=== PATIENT | female | born 1965 | race Caucasian/White ===

== ENCOUNTER 2022-09-13 20:56 | Inpatient (IN) | payer OTHER, SELFPAY ==
[2022-09-13] MEDS ORDERED: Magnesium Sulfate 2gm IVPB 2 G/50 ML BAG IV ONE (20:58)
[2022-09-13] MEDS ORDERED: NA CHLORIDE 0.9% 1,000 ML ONE (20:58)
[2022-09-13] MEDS ORDERED: dexAMETHasone 10 MG/ML VIAL ONE (20:58)
[2022-09-13] MEDS ORDERED: FUROSEMIDE 40 MG/4 ML VIAL ONE (21:05)
[2022-09-13 21:15] LABS: Urine Blood Negative (Negative); Urine Glucose Negative (Negative); Urine Protein Negative (Negative); Urine pH 5.5 (5.0-7.0)
[2022-09-13] MEDS ORDERED: NA CHLORIDE 0.9% 100 ML ONE (21:35)
[2022-09-13] MEDS ORDERED: PIPERACIL/TAZO 3.375 GM VIAL IV ONE (21:36)
[2022-09-13] MEDS ORDERED: IPRATROPIUM BROM 0.5MG/2.5ML ONE (21:37)
[2022-09-13] MEDS ORDERED: LEVALBUTEROL 1.25 MG/3 ML NEB ONE (21:37)
[2022-09-13] MEDS ORDERED: FAMOTIDINE 20 MG/2 ML VIAL IV ONE (21:40)
[2022-09-13 21:42] LABS: Arterial Blood Carboxyhemoglob 2.3 % (0-1.5); Blood Gas Oxyhemoglobin 81.6 % (94-97); Blood O2 Saturation 84.5 % (92-98.5)
[2022-09-13 22:02] LABS: Absolute Lymphocytes (CBC) 1.4 K/uL (0.7-4.9); Hematocrit 26.3 % (39.6-49.0); Lymphocytes % 6.9 % (15.3-44.8); MCV 79.3 fL (80-100); MPV 6.6 fL (7.6-11.3); Protime INR 1.98; RBC Red Blood Cell Count 3.31 M/uL (4.33-5.43)
--- NOTE | 2022-09-13 22:16 | RAD REPORT ---
EXAM DESCRIPTION: RAD - Chest Single View - 09/13/2022 10:06 pm CLINICAL HISTORY: Cough Chest pain. COMPARISON: No comparisons FINDINGS: Portable technique limits examination quality. Extensive bilateral pulmonary opacities are present, greater on the right. This may represent bilater al pneumonia or pulmonary edema. The heart is mildly enlarged in size. No displaced fractures.
[2022-09-13 22:18] LABS: Albumin 3.1 g/dL (3.4-5.0); Bilirubin Direct 1.6 mg/dL (0-0.2); Bilirubin Total 2.9 mg/dL (0.2-1.0); Magnesium 3.2 mg/dL (1.6-2.4); Potassium 4.1 mmol/L (3.5-5.1); Protein, Total 6.4 g/dL (6.4-8.2); Troponin High Sensitivity 48.1 pg/mL (<58.9)
[2022-09-13] MEDS ORDERED: NA CHLORIDE 0.9% 250 ML ONE ×2 (22:27→22:49)
[2022-09-13] MEDS ORDERED: VANCOMYCIN 1 GM/VIAL ONE (22:27)
[2022-09-13] MEDS ORDERED: AZITHROMYCIN 500 MG INJ IVPB ONE (22:49)
[2022-09-13 22:55] LABS: SARS-COV-2 RT PCR NEGATIVE (NEGATIVE)
--- NOTE | 2022-09-14 00:02 | ER ---
Nurse's Notes [facility] Name: Crystal Potter Age: 57 yrs Sex: Male : 1965 Arrival Date: 09/13/2022 Time: 21:00 Bed 4 Private MD: Diagnosis: Abnormal coagulation profile;Hypoxemia;Pneumonia due to other specified bacteria-BILATERAL;Anemia, unspecified;Elevated white blood cell count;Unspecified cirrhosis of liver Presentation: 09/13 21:13 Chief complaint: EMS states: She states that she hasnt taken her asthma medications tw5 since yesterday. 20 years ago she was intubated for something similar happening.. Coronavirus screen: Vaccine status: Patient reports receiving the 2nd dose of the covid vaccine. [employer]. Ebola Screen: Patient negative for fever greater than or equal to 101.5 degrees Fahrenheit, and additional compatible Ebola Virus Disease symptoms Patient denies exposure to infectious person. Patient denies travel to an Ebola-affected area in the 21 days before illness onset. Initial Sepsis Screen: Does the patient meet any 2 criteria? RR > 20 per min. Altered Mental Status. Does the patient have a suspected source of infection? Yes: Productive cough/pneumonia If YES to both, name of provider notified: Arnel Christine MD Risk Assessment: Do you want to hurt yourself or someone else? Patient reports no desire to harm self or others. Onset of symptoms was September 12, 2022 at 08:28. 21:13 Method Of Arrival: EMS: [facility] tw5 21:13 Acuity: SHAHRAM 2 tw5 Triage Assessment: 21:17 General: Appears uncomfortable, Behavior is cooperative. Pain: Denies pain. Neuro: tw5 Level of Consciousness is lethargic, Oriented to person, place, time, situation. Respiratory: Airway is patent Trachea midline Respiratory effort is labored, Respiratory pattern is tachypnea Breath sounds with crackles bilaterally. Historical: - Allergies: 21:17 No Known Allergies; tw5 - Home Meds: 21:17 Unable to obtain [Active]; tw5 - PMHx: 21:17 Asthma; tw5 - PSHx: 21:17 Unable to Obtain; tw5 - Immunization history:: Flu vaccine is not up to date. - Social history:: Smoking status: Patient denies any tobacco usage or history of. - Family history:: not pertinent. Screenin:22 [facility] ED Fall Risk Assessment (Adult) Impaired Gait Yes (1 pt) Altered Elimination tw5 Yes (1 pt). Abuse screen: Denies threats or abuse. Denies injuries from another. Nutritional screening: No deficits noted. Tuberculosis screening: No symptoms or risk factors identified. Assessment: 21:19 General: Appears uncomfortable, Behavior is cooperative, drowsy. Pain: Denies pain. tw5 Respiratory: Airway is patent. 21:22 Cardiovascular: Heart tones S1 S2 Capillary refill < 3 seconds is brisk in left in tw5 bilateral. Derm: Skin is dusky. 02 00:12 General: Appears in no apparent distress. Behavior is drowsy. Respiratory: Airway is tw5 patent Trachea midline Patient placed on BiPAP: FiO2%: 100. Vital Signs: 09/13 21:13 BP 102 / 56; Pulse 87; Resp 26; Pulse Ox 76% on NC; Weight 61.23 kg; Height 5 ft. 5 in. tw5 (165.10 cm); Pain 0/10; 21:13 Temp 97.6(A); tw5 21:22 BP 102 / 56; Pulse 85; Resp 27; Pulse Ox 88% on 50% BiPAP; tw5 23:24 BP 106 / 59; Pulse 85; Resp 20; Pulse Ox 98% on 100% BiPAP; mb9 0208 00:12 BP 95 / 70; Pulse 86; Resp 26; Pulse Ox 100% on 100% BiPAP; tw5 00:43 BP 106 / 66; Pulse 68; Resp 28 S; Pulse Ox 96% on R/A; as6 09/13 21:13 Body Mass Index 22.46 (61.23 kg, 165.10 cm) tw5 02 21:13 Upon transferring her to the bed on EMS Cpap, increased to 97 on our BIPAP at 100% tw5 ED Course: 21:00 Patient arrived in ED. mw2 21:00 Arnel Christine MD is Attending Physician. huy 21:13 Corinne Perez is Primary Nurse. tw5 21:17 Triage completed. tw5 21:17 Arm band placed on Patient placed in an exam room. tw5 21:22 Patient has correct armband on for positive identification. Placed in gown. Bed in low tw5 position. Call light in reach. Side rails up X2. Client placed on continuous cardiac and pulse oximetry monitoring. NIBP monitoring applied. Door closed. Moved to private room. Warm blanket given. Verbal reassurance given. Diet: Patient is NPO. 21:22 Billingsley cath inserted, using sterile technique, 18 Fr., by me, balloon inflated, urine tw5 specimen collected. Maintain EMS IV. Dressing intact. Good blood return noted. Site clean \T\ dry. Gauge \T\ site: 20 G RAC. Inserted saline lock: 20 gauge in left antecubital area, using aseptic technique. Blood collected. Started by [employer]. 21:25 Initial lab(s) drawn, by ED staff, sent to lab. First set of blood cultures drawn by ED tw5 staff. 21:25 No provider procedures requiring assistance completed. tw 21:25 ABG Sent. tw 21:25 BIPAP Sent. tw 21:25 Basic Metabolic Panel Sent. tw 21:25 CBC with Diff Sent. tw 21:25 LFT's Sent. tw 21:25 Magnesium Sent. tw 21:25 NT PRO-BNP Sent. tw 21:25 PT-INR Sent. tw 21:25 Troponin HS Sent. tw5 21:29 Blood Culture Adult (2) Sent. tw5 21:29 Lactate w/ 2H reflex if indic. Sent. tw5 21:58 Inserted saline lock: 22 gauge in left hand, using aseptic technique. mb9 22:08 XRAY Chest (1 view) In Process Unspecified. EDMS 22:08 COVID-19/FLU A+B/RSV Sent. tw5 22:27 Notified ED physician of a critical lab result(s). Lac 5.4. tw5 23:09 CT Chest W/ Con In Process Unspecified. EDMS 23:59 Isaac Fowler MD is [facility]izing [facility] 09/14 00:12 Initial lab(s) drawn, by me, sent to lab. tw 00:13 AMMONIA Sent. tw 00:13 Type And Screen Sent. tw5 02:11 Patient admitted, IV remains in place. tw5 Administered Medications: 09/13 21:19 Drug: Decadron - Dexamethasone 10 mg Route: IVP; Site: right antecubital; tw5 09/14 02:12 Follow up: Response: No adverse reaction tw09/13 21:19 Drug: Lasix (furosemide) 40 mg Route: IVP; Site: right antecubital; 09/14 02:12 Follow up: Response: No adverse reaction 09/13 21:21 Drug: Magnesium Sulfate 2 grams Route: IVPB; Infused Over: 20 mins; Site: right tw5 antecubital; 21:22 Follow up: IV Status: Completed infusion; IV Intake: 50ml 21:38 Drug: Pepcid (famotidine) 20 mg Route: IVP; Site: left antecubital; 09/14 02:12 Follow up: Response: No adverse reaction 09/13 22:08 Drug: Xopenex (levalbuterol) 3.75 mg Route: Inhalation; 22:08 Drug: AtroVENT (ipratropium) Aerosol 0.5 mg Route: Inhalation; 22:08 Drug: Zosyn (piperacillin-tazobactam) 3.375 grams Route: IVPB; Infused Over: 60 mins; Site: left wrist; 23:20 Follow up: Response: No adverse reaction; IV Status: Completed infusion 9 22:42 Drug: vancoMYCIN 1 grams Route: IVPB; Infused Over: 2 hrs; Site: left wrist; 09/14 00:29 Follow up: Response: No adverse reaction; IV Status: Completed infusion; IV Intake: as6 250ml 09/13 23:24 Drug: Zithromax (azithromycin) 500 mg Route: IVPB; Infused Over: 1 hrs; Site: left 9 antecubital; 09/14 00:29 Follow up: Response: No adverse reaction; IV Status: Completed infusion; IV Intake: as6 250ml 00:20 Drug: ProTONIX (pantoprazole) 40 mg Route: IVP; Site: right antecubital; 00:28 Follow up: Response: No adverse reaction 00:20 Drug: Thiamine 100 mg Route: IV; Rate: per protocol; Site: right antecubital; 00:29 Follow up: IV Status: Completed infusion 00:43 Drug: Vitamin K1 (phytonadione) 10 mg Route: Sub-Q; Site: left upper arm; 02:12 Follow up: Response: No adverse reaction 00:43 Drug: Banana Bag - (NS 0.9% 1000 ml, foLIC Acid 1 mg, Thiamine 100 mg, Multivitamin 1 as6 amp) Route: IV; Rate: 125 ml/hr; Site: left antecubital; 02:12 Follow up: IV Status: Infusion continued upon admission tw Medication: 09/13 21:22 VIS not applicable for this client. tw5 Intake: 21:22 IV: 50ml; Total: 50ml. tw5 09/14 00:29 IV: 250ml; Total: 300ml. as6 00:29 IV: 250ml; Total: 550ml. as6 Outcome: 00:01 Decision to Hospitalize by Provider. huy 02:11 Admitted to ICU Report called to report called to ernestina tw 02:11 Condition: stable 02:11 Instructed on the need for admit. 02:23 Patient left the ED. as6 02:40 Patient left the ED. as6 Signatures: Dispatcher [employer] EDMS Arnel Christine MD MD cha Gatti, Jade 2 Corinne Perez tw5 Alejo Moncada, BLAYNE RN as6 Yolanda Flores, RN RN mb9 Corrections: (The following items were deleted from the chart) 00:08 02 22:08 COVID-19/FLU A+B+MOL.LAB.BRZ drawn and sent. tw5 SHER
--- NOTE | 2022-09-14 00:03 | EDPHYS ---
Physician Documentation [facility] Name: Crystal Potter Age: 57 yrs Sex: Male : 1965 Arrival Date: 09/13/2022 Time: 21:00 Bed 4 Private MD: ED Physician Arnel Christine HPI: 09/13 22:57 This 57 yrs old Male presents to ER via EMS with complaints of DYSPNEA X 1DAY.huy 22:57 The patient has shortness of breath at rest, with light activity. Onset: The huy symptoms/episode began/occurred 1 day(s) ago. Duration: The symptoms are continuous, and are steadily getting worse. The patient's shortness of breath is aggravated by coughing, exertion, light activity, prone position, supine position, talking, walking, is alleviated by nebulizer treatment, sitting up, application of supplemental oxygen. The patient or guardian reports cough, that is intermittent, difficulty breathing, flu symptoms, arthralgias. Associated signs and symptoms: Pertinent positives: non-productive cough, dizziness. Severity of symptoms: At their worst the symptoms were moderate severe in the emergency department the symptoms are unchanged. Associated signs and symptoms: The patient has no apparent associated signs or symptoms, Pertinent positives: chest pain, rhinorrhea, sore throat. The patient has experienced similar episodes in the past, a few times. Historical: - Allergies: 21:17 No Known Allergies; tw5 - Home Meds: 21:17 Unable to obtain [Active]; tw5 - PMHx: 21:17 Asthma; tw5 - PSHx: 21:17 Unable to Obtain; tw5 - Immunization history:: Flu vaccine is not up to date. - Social history:: Smoking status: Patient denies any tobacco usage or history of. - Family history:: not pertinent. ROS: 22:57 Constitutional: Negative for fever, chills, and weight loss, Eyes: Negative for injury, huy pain, redness, and discharge, ENT: Negative for injury, pain, and discharge, Neck: Negative for injury, pain, and swelling, Cardiovascular: Negative for chest pain, palpitations, and edema, Abdomen/GI: Negative for abdominal pain, nausea, vomiting, diarrhea, and constipation, Back: Negative for injury and pain, : Negative for injury, bleeding, discharge, and swelling, MS/Extremity: Negative for injury and deformity, Skin: Negative for injury, rash, and discoloration, Neuro: Negative for headache, weakness, numbness, tingling, and seizure, Psych: Negative for depression, anxiety, suicide ideation, homicidal ideation, and hallucinations, Allergy/Immunology: Negative for hives, rash, and allergies, Endocrine: Negative for neck swelling, polydipsia, polyuria, polyphagia, and marked weight changes, Hematologic/Lymphatic: Negative for swollen nodes, abnormal bleeding, and unusual bruising. 22:57 Respiratory: Positive for cough, shortness of breath, at rest. Exam: 22:57 Constitutional: This is a well developed, well nourished patient who is awake, alert, huy and in no acute distress. Head/Face: Normocephalic, atraumatic. Eyes: Pupils equal round and reactive to light, extra-ocular motions intact. Lids and lashes normal. Conjunctiva and sclera are non-icteric and not injected. Cornea within normal limits. Periorbital areas with no swelling, redness, or edema. ENT: Nares patent. No nasal discharge, no septal abnormalities noted. Tympanic membranes are normal and external auditory canals are clear. Oropharynx with no redness, swelling, or masses, exudates, or evidence of obstruction, uvula midline. Mucous membranes moist. Neck: Trachea midline, no thyromegaly or masses palpated, and no cervical lymphadenopathy. Supple, full range of motion without nuchal rigidity, or vertebral point tenderness. No Meningismus. Chest/axilla: Normal chest wall appearance and motion. Nontender with no deformity. No lesions are appreciated. Cardiovascular: Regular rate and rhythm with a normal S1 and S2. No gallops, murmurs, or rubs. Normal PMI, no JVD. No pulse deficits. Abdomen/GI: Soft, non-tender, with normal bowel sounds. No distension or tympany. No guarding or rebound. No evidence of tenderness throughout. Back: No spinal tenderness. No costovertebral tenderness. Full range of motion. Male : Normal genitalia with no discharge or lesions. Skin: Warm, dry with normal turgor. Normal color with no rashes, no lesions, and no evidence of cellulitis. MS/ Extremity: Pulses equal, no cyanosis. Neurovascular intact. Full, normal range of motion. Neuro: Awake and alert, GCS 15, oriented to person, place, time, and situation. Cranial nerves II-XII grossly intact. Motor strength 5/5 in all extremities. Sensory grossly intact. Cerebellar exam normal. Normal gait. Psych: Awake, alert, with orientation to person, place and time. Behavior, mood, and affect are within normal limits. 22:57 ECG was reviewed by the Attending Physician. 22:57 Respiratory: mild respiratory distress is noted, Respirations: normal, Breath sounds: decreased breath sounds, that are moderate, that are severe, are heard in the right posterior upper lobe, right posterior middle lobe and right posterior lower lobe, rhonchi, that are mild, are scattered. Vital Signs: 21:13 BP 102 / 56; Pulse 87; Resp 26; Pulse Ox 76% on NC; Weight 61.23 kg; Height 5 ft. 5 in. tw5 (165.10 cm); Pain 0/10; 21:13 Temp 97.6(A); tw5 21:22 BP 102 / 56; Pulse 85; Resp 27; Pulse Ox 88% on 50% BiPAP; tw5 23:24 BP 106 / 59; Pulse 85; Resp 20; Pulse Ox 98% on 100% BiPAP; mb9 09/14 00:12 BP 95 / 70; Pulse 86; Resp 26; Pulse Ox 100% on 100% BiPAP; tw5 00:43 BP 106 / 66; Pulse 68; Resp 28 S; Pulse Ox 96% on R/A; as6 09/13 21:13 Body Mass Index 22.46 (61.23 kg, 165.10 cm) tw5 09/13 21:13 Upon transferring her to the bed on EMS Cpap, increased to 97 on our BIPAP at 100% tw5 MDM: 21:00 Patient medically screened. huy 23:31 Differential diagnosis: Anemia obstructed airway, bronchitis, URI. Antibiotic huy administration: VANCO, ZOSYN, ZITHROMYCIN. Immunization status: Influenza vaccine: Data reviewed: vital signs, nurses notes, EMS record, lab test result(s), EKG, radiologic studies, plain films. Consideration of Admission/Observation Patient was admitted/placed on observation. Escalation of care including admission/observation considered. Independent interpretation of the following test(s) in the Emergency Department X-Ray: My interpretation is PNA/ FLUID. 09/13 21:08 Order name: Basic Metabolic Panel; Complete Time: 22:32 [facility] 09/13 21:08 Order name: CBC with Diff; Complete Time: 22:16 [facility] 09/13 21:08 Order name: LFT's; Complete Time: 22:32 [facility] 09/13 21:08 Order name: Magnesium; Complete Time: 22:32 [facility] 09/13 21:08 Order name: NT PRO-BNP; Complete Time: 22:32 [facility] 09/13 21:08 Order name: PT-INR; Complete Time: 22:16 [facility] 09/13 21:08 Order name: Troponin HS; Complete Time: 22:32 [facility] 09/13 21:08 Order name: Blood Culture Adult (2) [facility] 09/13 21:08 Order name: Lactate w/ 2H reflex if indic.; Complete Time: 22:32 [facility] 09/13 21:12 Order name: ABG; Complete Time: 22:16 [facility] 09/13 21:15 Order name: Urine Dipstick-Ancillary; Complete Time: 22:16 EDMS 09/13 21:28 Order name: COVID-19/FLU A+B/RSV; Complete Time: 23:27 tw5 09/13 21:08 Order name: XRAY Chest (1 view); Complete Time: 22:32 [facility] 09/13 21:08 Order name: BIPAP [facility] 09/13 22:12 Order name: CT Chest W/ Con bb 09/13 23:58 Order name: Type And Screen; Complete Time: 01:27 [facility] 09/13 23:58 Order name: AMMONIA; Complete Time: 00:38 huy 09/14 01:29 Order name: ABO/RH no charge; Complete Time: 01:34 EDMS 09/14 01:37 Order name: Lactate Sepsis 2 HR Follow-up; Complete Time: 01:38 EDMS 09/13 21:08 Order name: EKG; Complete Time: 21:09 [facility] 09/13 21:08 Order name: Cardiac monitoring; Complete Time: 21:25 [facility] 09/13 21:08 Order name: EKG - Nurse/Tech; Complete Time: 21:22 [facility] 09/13 21:08 Order name: IV Saline Lock; Complete Time: 21:22 [facility] 09/13 21:08 Order name: Labs collected and sent; Complete Time: 21:22 [facility] 09/13 21:08 Order name: O2 Per Protocol; Complete Time: 21:22 [facility] 09/13 21:08 Order name: O2 Sat Monitoring; Complete Time: [facility] 09/13 21:08 Order name: Billingsley; Complete Time: : [facility] EC:57 Rate is 87 beats/min. Rhythm is regular. QRS [place] is Normal. [place] interval is normal. QRS huy interval is normal. QT interval is normal. No Q waves. T waves are Normal. No ST changes noted. Clinical impression: NSR w/ Non-specific ST/T Changes. Interpreted by me. Reviewed by me. Administered Medications: 21:19 Drug: Decadron - Dexamethasone 10 mg Route: IVP; Site: right antecubital; 09/14 02:12 Follow up: Response: No adverse reaction 09/13 21:19 Drug: Lasix (furosemide) 40 mg Route: IVP; Site: right antecubital; tw09/14 02:12 Follow up: Response: No adverse reaction 09/13 21:21 Drug: Magnesium Sulfate 2 grams Route: IVPB; Infused Over: 20 mins; Site: right tw5 antecubital; 21:22 Follow up: IV Status: Completed infusion; IV Intake: 50ml 21:38 Drug: Pepcid (famotidine) 20 mg Route: IVP; Site: left antecubital; 09/14 02:12 Follow up: Response: No adverse reaction 09/13 22:08 Drug: Xopenex (levalbuterol) 3.75 mg Route: Inhalation; 22:08 Drug: AtroVENT (ipratropium) Aerosol 0.5 mg Route: Inhalation; 22:08 Drug: Zosyn (piperacillin-tazobactam) 3.375 grams Route: IVPB; Infused Over: 60 mins; tw Site: left wrist; 23:20 Follow up: Response: No adverse reaction; IV Status: Completed infusion 9 22:42 Drug: vancoMYCIN 1 grams Route: IVPB; Infused Over: 2 hrs; Site: left wrist; tw5 09/14 00:29 Follow up: Response: No adverse reaction; IV Status: Completed infusion; IV Intake: as6 250ml 09/13 23:24 Drug: Zithromax (azithromycin) 500 mg Route: IVPB; Infused Over: 1 hrs; Site: left mb9 antecubital; 09/14 00:29 Follow up: Response: No adverse reaction; IV Status: Completed infusion; IV Intake: as6 250ml 00:20 Drug: ProTONIX (pantoprazole) 40 mg Route: IVP; Site: right antecubital; tw 00:28 Follow up: Response: No adverse reaction 00:20 Drug: Thiamine 100 mg Route: IV; Rate: per protocol; Site: right antecubital; 00:29 Follow up: IV Status: Completed infusion 00:43 Drug: Vitamin K1 (phytonadione) 10 mg Route: Sub-Q; Site: left upper arm; as6 02:12 Follow up: Response: No adverse reaction 00:43 Drug: Banana Bag - (NS 0.9% 1000 ml, foLIC Acid 1 mg, Thiamine 100 mg, Multivitamin 1 as6 amp) Route: IV; Rate: 125 ml/hr; Site: left antecubital; 02:12 Follow up: IV Status: Infusion continued upon admission Disposition Summary: 09/14/22 00:01 Hospitalization Ordered Hospitalization Status: Inpatient Admission huy Provider: Isaac Fowler cha Location: Intensive Care Unit huy Condition: Serious huy Problem: new huy Symptoms: have improved huy Bed/Room Type: Standard huy Room Assignment: 3-(09/14/22 01:44) cg Diagnosis - Abnormal coagulation profile huy - Hypoxemia huy - Pneumonia due to other specified bacteria - BILATERAL huy - Anemia, unspecified huy - Elevated white blood cell count huy - Unspecified cirrhosis of liver huy Forms: - Medication Reconciliation Form huy - SBAR form huy Signatures: Dispatcher [employer] EDArnel Slater MD MD cha Garcia, Cindy, RN Corinne Galvez tw5 Alejo Moncada RN RN as6 Cristin Dallas PA-C PA-C sb4 Yolanda Flores RN RN mb9 Corrections: (The following items were deleted from the chart) 00:08 02 21:09 COVID-19/FLU A+B+MOL.LAB.BRZ ordered. EDMS EDMS 09/14 00:08 0207 21:55 COVID-19/FLU A+B+MOL.LAB.BRZ ordered. EDMS EDMS 09/14 01:44 00:01 huy cg
[2022-09-14] MEDS ORDERED: THIAMINE 200 MG/2 ML INJ ONE ×2 (00:18→00:38)
[2022-09-14] MEDS ORDERED: PANTOPRAZOLE 40 MG INJ ONE (00:18)
[2022-09-14] MEDS ORDERED: NA CHLORIDE 0.9% 1,000 ML ONE (00:38)
[2022-09-14] MEDS ORDERED: VITAMIN K (ADULT) 10 MG/ML ONE (00:38)
[2022-09-14] MEDS ORDERED: FOLIC ACID 5 MG/ML VIAL ONE (00:39)
[2022-09-14] MEDS ORDERED: MULTIVITAMINS 10 ML VIAL (INJ) IV ONE (00:39)
--- NOTE | 2022-09-14 01:16 | P.HP ---
Certification for Inpatient Patient admitted to: Inpatient With expected LOS: >2 Midnights Patient will require the following post-hospital care: None Practitioner: I am a practitioner with admitting privileges, knowledge of patient current condition, hospital course, and medical plan of care. Services: Services provided to patient in accordance with Admission requirements found in Title 42 Section 412.3 of the Code of Federal Regulations Patient History Date of Service: 09/14/22 Reason for admission: Pneumonia, Septic Shock History of Present Illness: Patient is a 57 year old female with past medical history of hypertension, hyperlipidemia, and asthma who presented to the emergency department via EMS in respiratory distress. She was noted to be saturating 76% on cpap and subsequently placed on bipap. ABG with pH 7.37, pCO2 38.4, pO2 56, bicarb 21.4. Labs are significant for WBC 19.5, hemoglobin 8.3, hematocrit 26.3, PT 21.8, INR 1.98, lactate 5.4, magnesium 3.2, T. bili 2.6, direct bili 1.6, AST 62, ammonia 58, BNP 526. Covid/flu/RSV negative. CT showed "Extensive bilateral pulmonary infiltrates, hepatic cirrhosis, sequela of portal hypertension." Patient reports that she used to be a heavy alcohol drinker, but quit about 1 year ago. She was given breathing treatment and solumedrol by EMS. In the emergency department, she received Decadron, Lasix, magnesium, Pepcid, Zosyn, Xopenex, Atrovent, vancomycin, Zithromax, Protonix, thiamine, banana bag, and vitamin K. Patient is admitted for further management. Home medications list reviewed: Yes - Past Medical/Surgical History Diabetic: No -: Hypertension -: Hyperlipidemia -: Asthma -: Alcoholic Cirrhosis -: Portal Hypertension -: Breast Reduction Psychosocial/ Personal History: Patient lives in [place]. - Family History Father -: Heart disease, Diabetes - Social History Smoking Status: Never smoker Alcohol use: No CD- Drugs: No Caffeine use: Yes Place of Residence: Home Review of Systems General: Weakness Respiratory: Cough, Shortness of Breath Physical Examination - Vital Signs Temperature: 97.6 F Blood Pressure: 106/66 Pulse: 68 Respirations: 28 Pulse Ox (%): 96 (100% bipap) - Physical Exam General: Alert, In no apparent distress HEENT: Atraumatic, EOMI, Sclerae nonicteric Neck: Supple, 2+ carotid pulse no bruit Respiratory: Crackles/rales Cardiovascular: No edema, Regular rate/rhythm, Normal S1 S2 Gastrointestinal: Normal bowel sounds, No tenderness Musculoskeletal: No tenderness Integumentary: No rashes Neurological: Normal speech, Normal affect - Studies Laboratory Data (last 24 hrs) 09/13/22 21:21: PT 21.8 H, INR 1.98 09/13/22 21:21: WBC 19.50 H, Hgb 8.3 L, Hct 26.3 L, Plt Count 197 09/13/22 21:21: Sodium 139, Potassium 4.1, BUN 20 H, Creatinine 0.99, Glucose 134 H, Magnesium 3.2 H, Total Bilirubin 2.9 H, AST 62 H, ALT 33, Alkaline Phosphatase 92 Assessment and Plan - Problems (Diagnosis) (1) Pneumonia Current Visit: Yes Status: Acute Qualifiers: Pneumonia type: due to unspecified organism Laterality: bilateral Lung location: lower lobe of lung Qualified Code(s): J18.9 - Pneumonia, unspecified organism (2) Sepsis Current Visit: Yes Status: Acute Qualifiers: Sepsis type: sepsis due to unspecified organism Sepsis acute organ dysfunction status: with acute organ dysfunction Severe sepsis acute organ dysfunction type: acute respiratory failure Acute respiratory failure type: with hypoxia Severe sepsis shock status: with septic shock Qualified Code(s): A41.9 - Sepsis, unspecified organism; R65.21 - Severe sepsis with septic shock; J96.01 - Acute respiratory failure with hypoxia (3) Hypertension Current Visit: Yes Status: Chronic (4) Hyperlipidemia Current Visit: Yes Status: Chronic Qualifiers: Hyperlipidemia type: unspecified Qualified Code(s): E78.5 - Hyperlipidemia, unspecified (5) Asthma Current Visit: Yes Status: Chronic Qualifiers: Asthma severity: unspecified severity Asthma persistence: unspecified Asthma complication type: with acute exacerbation Qualified Code(s): J45.901 - Unspecified asthma with (acute) exacerbation (6) Cirrhosis Current Visit: Yes Status: Chronic Qualifiers: Hepatic cirrhosis type: alcoholic cirrhosis Ascites presence: without ascites Qualified Code(s): K70.30 - Alcoholic cirrhosis of liver without ascites (7) Portal hypertension Current Visit: Yes Status: Chronic (8) Anemia Current Visit: Yes Status: Acute Qualifiers: Anemia type: unspecified type Qualified Code(s): D64.9 - Anemia, unspecified - Plan Patient is admitted for septic shock secondary to bilateral pneumonia. Tachypnea, leukocytosis, need for bipap, and lactate > 4. 2 hour repeat lactate 2.9. Blood cultures obtained. Continue IV antibiotics, steroids, scheduled nebs, incentive spirometry, and antitussives as needed. Pulmonology consult. Continue bipap and wean as tolerated. Labs suggestive of acute hepatic failure. Patient reports history of alcohol abuse with 1 year sobriety. Check hepatitis panel. Trend LFTs. Patient is anemic at 8.3. No active bleeding, no melanotic stools. Type and screen completed. Monitor CBC and transfuse if < 7. Will also check iron panel, B12, folic acid, fibrinogen, phosphorous, ammonia. Monitor and replete electrolytes per protocol. Reconcile and continue home mediations. Lovenox for VTE prophylaxis. Full code. Discharge Plan: Home Plan to discharge in: Greater than 2 days - Advance Directives Does patient have a Living Will: No Does patient have a Durable POA for Healthcare: No - Code Status/Comfort Care Code Status Assessed: Yes Code Status: Full Code Physician Review: Patient Assessed, Agree with Above Assessment and Plan Critical Care: No Time Spent Managing Pts Care (In Minutes): 50
[2022-09-14] MEDS ORDERED: BENZONATATE 100 MG CAP PO PRN (03:13)
[2022-09-14] MEDS ORDERED: LACTULOSE 20 GM/30 ML UCUP PO ONE (03:13)
[2022-09-14] MEDS ORDERED: SODIUM CHLORIDE 0.9% 10ML INJ IV PRN (03:13)
[2022-09-14] MEDS: IPRATROPIUM BROM 0.5MG/2.5ML NEB SCH ×4 (04:00→18:30)
[2022-09-14] MEDS: ALBUTEROL 2.5 MG/3 ML NEB SOL NEB SCH ×4 (04:00→18:30)
[2022-09-14 05:06] LABS: Absolute Lymphocytes (CBC) 0.7 K/uL (0.7-4.9); Lymphocytes % 5.1 % (15.3-44.8); MCV 79.2 fL (80-100); MPV 6.6 fL (7.6-11.3); RBC Red Blood Cell Count 3.16 M/uL (3.86-4.86)
[2022-09-14 05:28] LABS: Blood Morphology Comment NOT SEEN (NOT SEEN); Platelet Estimate ADEQ
--- NOTE | 2022-09-14 05:36 | P.INFCA ---
Sepsis Focused Assessment - Focused Assessment Complete? Sepsis Focused Assessment Completed?: Yes - Sepsis Screen Result Severe Sepsis: Positive Septic Shock: Negative - Evaluation Current stage of sepsis: Severe sepsis - Vital Signs Reviewed: Yes Temperature: 97.6 F Heart rate: 68 Blood Pressure: 106/66 Respiratory Rate: 28 O2 Sat by Pulse Oximetry: 96 (100% bipap) - Examination Comments: Sepsis reassesment completed.
--- NOTE | 2022-09-14 05:36 | P.PN ---
Subjective Date of Service: 09/14/22 Patient's hypoxemia improving. Continue with BiPAP support and slowly try to wean off BiPAP at this time. Review of Systems 10-point ROS is otherwise unremarkable Physical Examination - Vital Signs Temperature: 97.6 F Blood Pressure: 106/66 Pulse: 68 Respirations: 28 Pulse Ox (%): 96 (100% bipap) - Physical Exam General: Alert, In no apparent distress Respiratory: Diminished, Crackles/rales, Expiratory wheezes Cardiovascular: Regular rate/rhythm, Normal S1 S2, Systolic murmur Gastrointestinal: Normal bowel sounds, Soft and benign, Non-distended, No tenderness, No rebound, No guarding Musculoskeletal: No clubbing, No swelling, No tenderness Neurological: Sensation intact, Cranial nerves 3-12 intact - Studies Laboratory Data (last 24 hrs) 09/13/22 21:21: PT 21.8 H, INR 1.98 09/13/22 21:21: WBC 19.50 H, Hgb 8.3 L, Hct 26.3 L, Plt Count 197 09/13/22 21:21: Sodium 139, Potassium 4.1, BUN 20 H, Creatinine 0.99, Glucose 134 H, Magnesium 3.2 H, Total Bilirubin 2.9 H, AST 62 H, ALT 33, Alkaline Phosphatase 92 Medications List Reviewed: Yes Assessment & Plan - Problems (Diagnosis) (1) Pneumonia Current Visit: Yes Status: Acute Qualifiers: Pneumonia type: due to unspecified organism Laterality: bilateral Lung location: lower lobe of lung Qualified Code(s): J18.9 - Pneumonia, unspecified organism (2) Thrombocytopenia Current Visit: Yes Status: Acute (3) Anemia associated with acute blood loss Current Visit: Yes Status: Acute (4) Sepsis Current Visit: Yes Status: Acute Qualifiers: Sepsis type: sepsis due to unspecified organism Sepsis acute organ dysfunction status: with acute organ dysfunction Severe sepsis acute organ dysfunction type: acute respiratory failure Acute respiratory failure type: with hypoxia Severe sepsis shock status: with septic shock Qualified Code(s): A41.9 - Sepsis, unspecified organism; R65.21 - Severe sepsis with septic shock; J96.01 - Acute respiratory failure with hypoxia (5) Cirrhosis Current Visit: Yes Status: Chronic Qualifiers: Hepatic cirrhosis type: alcoholic cirrhosis Ascites presence: without ascites Qualified Code(s): K70.30 - Alcoholic cirrhosis of liver without ascites (6) Portal hypertension Current Visit: Yes Status: Chronic - Plan Plan: 1. Continue with IV antibiotics 2. Awaiting sputum and blood culture 3. Repeat chest x-ray 4. CT scan of the chest reviewed; echocardiogram pending 5. Appreciate pulmonary consultation 6. Continue with nebs as needed 7. O2 per protocol 8. PPI 9. Monitor volume status 10. GI and DVT prophylaxis Discharge Plan: Home Plan to discharge in: Greater than 2 days - Advance Directives Does patient have a Living Will: No Does patient have a Durable POA for Healthcare: No - Code Status/Comfort Care Code Status: Full Code Physician Review: Patient Assessed, Agree with Above Assessment and Plan
[2022-09-14 05:41] LABS: Albumin 2.9 g/dL (3.4-5.0); Bilirubin Direct 1.3 mg/dL (0-0.2); Bilirubin Total 2.1 mg/dL (0.2-1.0); Magnesium 2.6 mg/dL (1.6-2.4); Phosphorus 3.6 mg/dL (2.5-4.9); Protein, Total 6.1 g/dL (6.4-8.2); Thyroid Stimulating Hormone 0.386 uIU/mL (0.358-3.740)
[2022-09-14] MEDS ORDERED: PANTOPRAZOLE INJ 80 MG in NA CHLORIDE 0.9% 250 ML IV SCH (06:00)
[2022-09-14 06:09] LABS: Hepatitis B Core IgM Nonreactive (Nonreactive); Hepatitis B surface AG Interp. Nonreactive (Nonreactive); Hepatitis C Virus Ab Nonreactive (Nonreactive)
[2022-09-14 06:26] LABS: RBC Red Blood Cell Count 3.19 M/uL (3.86-4.86)
--- NOTE | 2022-09-14 07:44 | RAD REPORT ---
EXAM DESCRIPTION: US - Abdomen Exam Complete - 09/14/2022 6:10 am CLINICAL HISTORY: Abdominal pain COMPARISON: none FINDINGS: The liver has an increased echotexture. Nodular contour Gallbladder wall not thickened. The biliary tree is normal caliber. Gallstones. 5 millimeter polyp The pancreas is normal in size and echotexture The right kidney measures 10 centimeters with a normal echotexture. The left kidney measures 11 centimeters with a normal echotexture. The spleen measures 12.6 centimeters. Abdominal aorta/IVC do not demonstrate a significant abnormality IMPRESSION: Cholelithiasis without evidence cholecystitis Borderline splenomegaly Mildly increased hepatic echotexture may indicate mild fatty infiltration. Mildly nodular hepatic con tour indicating chronic disease
--- NOTE | 2022-09-14 08:00 | P.CNS ---
Date of Consult: 09/14/22 Reason for Consult: Resp failiure Chief Complaint: Pneumonia, Septic Shock History of Present Illness: Patient is 57 years of age past medical history of metabolic syndrome hypertension hyperlipidemia came in with respiratory failure diffuse bilateral changes on the x-ray patient is alert cooperative responsive apparently been sick for about 2 weeks hemodynamically stable on BiPAP P Allergies No Known Allergies Allergy (Unverified 09/14/22 03:12) - Past Medical/Surgical History Diabetic: No -: Hypertension -: Hyperlipidemia -: Asthma -: Alcoholic Cirrhosis -: Portal Hypertension -: Breast Reduction Psychosocial/ Personal History: Patient lives in [place]. - Family History Father Medical History: Heart disease, Diabetes - Social History Alcohol use: No CD- Drugs: No Caffeine use: Yes Place of Residence: Home Review of Systems 10-point ROS is otherwise unremarkable General: Weakness Respiratory: Cough, Shortness of Breath Physical Examination Temp Pulse Resp BP Pulse Ox 97.6 F 88 21 H 121/66 98 09/14/22 05:36 09/14/22 06:00 09/14/22 06:00 09/14/22 06:00 09/14/22 06:00 General: Alert, Oriented x3, Mild distress Respiratory: Clear to auscultation bilaterally, Diminished Cardiovascular: No edema, Regular rate/rhythm, Normal S1 S2 Gastrointestinal: Normal bowel sounds, Soft and benign Musculoskeletal: No clubbing, No swelling, No contractures Integumentary: No rashes, No breakdown Laboratory Data (last 24 hrs) 09/13/22 21:21: PT 21.8 H, INR 1.98 09/13/22 21:21: WBC 19.50 H, Hgb 8.3 L, Hct 26.3 L, Plt Count 197 09/13/22 21:21: Sodium 139, Potassium 4.1, BUN 20 H, Creatinine 0.99, Glucose 134 H, Magnesium 3.2 H, Total Bilirubin 2.9 H, AST 62 H, ALT 33, Alkaline Phosph atase 92 - Problems (1) Respiratory failure Current Visit: Yes Status: Acute Plan: Patient is 57 years of age admitted with acute respiratory failure bilateral pulmonary infiltrates pneumonia White count is elevated very comfortable on a BiPAP of expanded antibiotic coverage added levofloxacin vancomycin we have the severity of pneumonia DC Zithromax low-dose diuretic steroid blood cultures pending increase PEEP titrate sat to 90-95% patient also has microcytic anemia low transferrin saturation consistent with iron deficiency anemia Qualifiers: Chronicity: acute (2) Pneumonia Current Visit: Yes Status: Acute Qualifiers: Pneumonia type: due to unspecified organism Laterality: bilateral Lung location: lower lobe of lung Qualified Code(s): J18.9 - Pneumonia, unspecified organism
[2022-09-14] MEDS: PANTOPRAZOLE INJ 80 MG in NA CHLORIDE 0.9% 250 ML IV SCH ×2 (08:30→20:01)
[2022-09-14] MEDS: FUROSEMIDE 20 MG/ 2ML VIAL IV SCH (08:30)
[2022-09-14] MEDS: Levofloxacin 750mg IV 750 MG/150 ML BAG IV SCH (08:30)
[2022-09-14] MEDS: ENOXAPARIN 40 MG/0.4 ML SQ SCH ×2 (08:30→09:00)
[2022-09-14] MEDS: METHYLPREDNISOLONE 125 MG INJ IV SCH ×2 (08:31→20:01)
[2022-09-14] MEDS: CEFTRIAXONE 1,000 MG in NA CHLORIDE 0.9% 50 ML IVPB SCH (08:35)
[2022-09-14] MEDS: VANCOMYCIN 1 GM in NA CHLORIDE 0.9% 250 ML IVPB SCH (08:47)
[2022-09-14] MEDS: SOD FERRIC GLUC COMPLX/SUCROSE 250 MG in NA CHLORIDE 0.9% 250 ML IV SCH (08:53)
[2022-09-14] MEDS ORDERED: AZITHROMYCIN IV 500 MG in NA CHLORIDE 0.9% 250 ML IVPB SCH (09:00)
[2022-09-14] MEDS ORDERED: PANTOPRAZOLE 40 MG INJ IVP SCH (09:00)
[2022-09-14] MEDS ORDERED: METHYLPREDNISOLONE 40 MG INJ IV SCH (09:00)
[2022-09-14] MEDS ORDERED: ENOXAPARIN 40 MG/0.4 ML SQ SCH (09:00)
--- NOTE | 2022-09-14 10:46 | RAD REPORT ---
EXAM DESCRIPTION: CT - Thorax W/ Con - 09/14/2022 6:46 am CLINICAL HISTORY: DYSPNEA TECHNIQUE: Axial computed tomography images of the chest with intravenous contrast. Sagittal and c oronal reformatted images were created and reviewed. This CT exam was performed using one or more o f the following dose reduction techniques: automated exposure control, adjustment of the mA and/or kV according to patient size, and/or use of iterative reconstruction technique. COMPARISON: No relevant prior studies available. FINDINGS: Lungs: Extensive multifocal groundglass opacities bilaterally, right greater than left. Right lower lobe calcified granulomata. Pleural space: Unremarkable. No pneumothorax. No significant effusion. Heart: The heart is moderately enlarged. Coronary artery calcification. No significant pericard ial effusion. Bones/joints: Mild multilevel spondylosis. No acute fracture. No dislocation. Soft tissues: Unremarkable. Vasculature: Minimal atherosclerotic disease. Incidental note is made of a 2-vessel aortic arch w ith common origin of the right brachiocephalic and left common carotid arteries. Prominence of the main and central pulmonary arteries which can be seen in the setting of pulmonary arterial hypertensi on. Lymph nodes: Unremarkable. No enlarged lymph nodes. Liver: The liver is enlarged and mildly diffusely low in density compatible with steatosis. Subtl e surface contour nodularity. Gallbladder and bile ducts: Multiple small layering gallstones. No gallbladder wall thickening or pericholecystic fluid. Pancreas: Mild to moderate pancreatic parenchymal atrophy. Spleen: The spleen is enlarged. Splenic parenchymal calcifications compatible with remote granulo matous organism exposure. IMPRESSION: 1. Extensive bilateral pulmonary infiltrates. 2. Findings suggestive of hepatic cirrhosis and sequela of portal hypertension. 3. Other findings as above. Electronically signed by: Campbell Lopez MD 09/13/2022 11:27 PM NUTRITION INTERN Due to temporary technical issues with the PACS/Fluency reporting system, reports are being signed by the in house radiologists without review as a courtesy to insure prompt reporting. The interpreting radiologist is fully responsible for the content of the report.
[2022-09-14 14:30] LABS: Hematocrit 27.2 % (36.0-45.0)
[2022-09-14 18:02] LABS: Absolute Lymphocytes (CBC) 0.9 K/uL (0.7-4.9); Hematocrit 24.3 % (36.0-45.0); Lymphocytes % 6.3 % (15.3-44.8); MCV 78.8 fL (80-100); MPV 6.8 fL (7.6-11.3); RBC Red Blood Cell Count 3.08 M/uL (3.86-4.86)
[2022-09-15] MEDS ORDERED: IBUPROFEN 400 MG TAB PO ONE (01:10)
[2022-09-15] MEDS: ZOLPIDEM TARTRATE 10 MG TABLET PO PRN ×2 (01:33→21:06)
[2022-09-15] MEDS: MIRTAZAPINE 15 MG TAB PO PRN ×2 (01:33→21:05)
[2022-09-15] MEDS: VANCOMYCIN 1 GM in NA CHLORIDE 0.9% 250 ML IVPB SCH ×2 (01:35→20:55)
[2022-09-15] MEDS: ALBUTEROL 2.5 MG/3 ML NEB SOL NEB SCH ×4 (02:00→19:40)
[2022-09-15] MEDS: IPRATROPIUM BROM 0.5MG/2.5ML NEB SCH ×4 (02:00→19:40)
[2022-09-15 04:53] LABS: Absolute Lymphocytes (CBC) 1.2 K/uL (0.7-4.9); Hematocrit 23.5 % (36.0-45.0); Lymphocytes % 9.1 % (15.3-44.8); MCV 78.8 fL (80-100); MPV 6.8 fL (7.6-11.3); RBC Red Blood Cell Count 2.98 M/uL (3.86-4.86)
[2022-09-15 05:11] LABS: Albumin 2.8 g/dL (3.4-5.0); Bilirubin Total 1.3 mg/dL (0.2-1.0); Magnesium 2.6 mg/dL (1.6-2.4); Phosphorus 3.2 mg/dL (2.5-4.9); Potassium 3.7 mmol/L (3.5-5.1); Protein, Total 5.8 g/dL (6.4-8.2)
[2022-09-15] MEDS: PANTOPRAZOLE INJ 80 MG in NA CHLORIDE 0.9% 250 ML IV SCH ×3 (06:33→17:21)
[2022-09-15] MEDS ORDERED: POTASSIUM 25 MEQ EFFERV TAB PO ONE (07:00)
--- NOTE | 2022-09-15 07:58 | EKG ---
Test Date: 2022-09-13 Test Time: 21:05:08 Civil Design Specialist: RV MEASUREMENT RESULTS: Intervals: Rate: 87 [place]: 120 QRSD: 88 QT: 394 QTc: 474 [place]: P: 50 [place]: 120 QRS: 97 T: 10 INTERPRETIVE STATEMENTS: Normal sinus rhythm Rightward axis ST & T wave abnormality, consider lateral ischemia Prolonged QT Abnormal ECG No previous ECG available for comparison Electronically Signed On 09-15-22 07:55:15 MANAGEMENT ACCOUNTS MANAGER by Lionel Braun
--- NOTE | 2022-09-15 08:36 | ECHO ---
HEIGHT: 5 ft 5 in WEIGHT: 135 lb 0 oz DATE OF STUDY: 09/14/[address]: Isaac Fowler MD 2-DIMENSIONAL: YES M.MODE: YES DOPPLER: YES COLOR FLOW: YES TDS: PORTABLE: YES DEFINITY: BUBBLE STUDY: DIAGNOSIS: CONGESTIVE HEART FAILURE CARDIAC HISTORY: CATHERIZATION: SURGERY: PROSTHETIC VALVE: PACEMAKER: MEASUREMENTS (cm) DIASTOLIC (NORMALS) SYSTOLIC (NORMALS) IVSd 0.9 (0.6-1.2) LA Diam 4.2 (1.9-4.0) LVEF 55-60% LVIDd 4.8 (3.5-5.7) LVIDs 3.6 (2.0-3.5) %FS 26% LVPWd 1.3 (0.6-1.2) Ao Diam 2.6 (2.0-3.7) 2 DIMENSIONAL ASSESSMENT: RIGHT ATRIUM: NORMAL LEFT ATRIUM: ENLARGED RIGHT VENTRICLE: NORMAL LEFT VENTRICLE: NORMAL TRICUSPID VALVE: MILD TRICUSPID REGURGITATION MITRAL VALVE: MILD TO MODERATE MITRAL REGURGITATION PULMONIC VALVE: NORMAL AORTIC VALVE: CALCIFIED, NO AORTIC STENOSIS PERICARDIAL EFFUSION: NONE AORTIC ROOT: NORMAL LEFT VENTRICULAR WALL MOTION: NORMAL DOPPLER/COLOR FLOW: SEE BELOW COMMENTS: 1. NORMAL LEFT VENTRICULAR EJECTION FRACTION 55-60% WITH NORMAL WALL MOTION 2. MODERATE DIASTOLIC DYSFUNCTION 3. LEFT ATRIAL ENLARGEMENT 4. MODERATE MITRAL REGURGITATION 5. MILD TRICUSPID REGURGITATION TECHNOLOGIST: YUVAL WYATT
[2022-09-15] MEDS ORDERED: AMLODIPINE 10 MG TAB PO SCH (09:00)
[2022-09-15] MEDS: SOD FERRIC GLUC COMPLX/SUCROSE 250 MG in NA CHLORIDE 0.9% 250 ML IV SCH (09:14)
[2022-09-15] MEDS: METHYLPREDNISOLONE 125 MG INJ IV SCH (09:18)
[2022-09-15] MEDS: FUROSEMIDE 20 MG/ 2ML VIAL IV SCH (09:18)
[2022-09-15] MEDS: CEFTRIAXONE 1,000 MG in NA CHLORIDE 0.9% 50 ML IVPB SCH (09:20)
[2022-09-15] MEDS: Levofloxacin 750mg IV 750 MG/150 ML BAG IV SCH (09:32)
--- NOTE | 2022-09-15 12:01 | P.PN ---
Subjective Date of Service: 09/15/22 Chief Complaint: Pneumonia, Septic Shock Subjective: Improving (Patient is doing better oxygen requirements declining will drink some Ensure) Review of Systems General: Weakness Respiratory: Shortness of Breath Physical Examination - Vital Signs Temperature: 97.6 F Blood Pressure: 98/58 Pulse: 84 Respirations: 21 Pulse Ox (%): 93 - Physical Exam General: Alert, Cooperative Respiratory: Diminished, Crackles/rales (Crackles bilateral) - Studies Medications List Reviewed: Yes Assessment And Plan - Current Problems (Diagnosis) (1) Respiratory failure Current Visit: Yes Status: Acute Plan: Patient admitted with severe community-acquired pneumonia. With some respiratory failure she seems to be improved blood pressure is slightly low white count is declining blood cultures so far negative on 55% FiO2 PEEP of 12 Qualifiers: Chronicity: acute (2) Pneumonia Current Visit: Yes Status: Acute Plan: Severe community-acquired pneumonia on Rocephin Levaquin and vancomycin chest x- ray seems to be improving Qualifiers: Pneumonia type: due to unspecified organism Laterality: bilateral Lung location: lower lobe of lung Qualified Code(s): J18.9 - Pneumonia, unspecified organism (3) Iron deficiency anemia Current Visit: Yes Status: Acute Plan: Patient is on IV iron Qualifiers: Iron deficiency anemia type: unspecified iron deficiency Qualified Code(s): D50.9 - Iron deficiency anemia, unspecified Physician Review: Patient Assessed, Agree with Above Assessment and Plan
--- NOTE | 2022-09-15 12:14 | RAD REPORT ---
EXAM DESCRIPTION: RAD - Chest Single View - 09/15/2022 12:04 pm CLINICAL HISTORY: penumonia Chest pain. COMPARISON: Chest Single View dated 09/13/2022 FINDINGS: Portable technique limits examination quality. Extensive bilateral pulmonary opacities are again seen. There has been mild improvement in right lung aeration since comparative study. The heart is moderately enlarged in size. No displaced fractures.
[2022-09-15] MEDS ORDERED: hydrOXYzine HCL 25 MG TAB PO PRN (20:00)
[2022-09-15] MEDS: METHYLPREDNISOLONE 40 MG INJ IV SCH (20:56)
[2022-09-16] MEDS: ALBUTEROL 2.5 MG/3 ML NEB SOL NEB SCH ×4 (01:55→19:40)
[2022-09-16] MEDS: IPRATROPIUM BROM 0.5MG/2.5ML NEB SCH ×4 (01:55→19:40)
[2022-09-16] MEDS: PANTOPRAZOLE INJ 80 MG in NA CHLORIDE 0.9% 250 ML IV SCH ×3 (04:01→23:39)
[2022-09-16 04:41] LABS: Absolute Lymphocytes (CBC) 0.7 K/uL (0.7-4.9); Hematocrit 23.7 % (36.0-45.0); Lymphocytes % 6.4 % (15.3-44.8); MCV 79.2 fL (80-100); MPV 6.6 fL (7.6-11.3); RBC Red Blood Cell Count 2.99 M/uL (3.86-4.86)
--- NOTE | 2022-09-16 04:46 | P.PN ---
Date of Service: 09/15/22 Subjective Patient still very hypoxic. Still requiring BiPAP support. ; patient not really that active at this point. May try Airvo awaiting Pulmonary input. Monitor H&H. Patient with severe iron deficiency anemia. If hemoglobin decreases more will give 1 unit packed red blood cells. Patient with portal hypertension. May need further evaluation once her hypoxemia is improved. Continue with antibiotics and awaiting cultures. Patient states she is feeling okay but just really weak. Echocardiogram showed diastolic heart failure. Continue with diuresing. Review of Systems 10-point ROS is otherwise unremarkable Physical Examination - Vital Signs reviewed - Physical Exam General: Alert, In no apparent distress; oriented x 3 Respiratory: Basilar crackles; wheezing Cardiovascular: Regular rate/rhythm, Normal S1 S2 Gastrointestinal: NT/ND Normal bowel sounds Neurological: No focal deficits Extremities: No clubbing/cyanosis/no edema Assessment & Plan - Problems (Diagnosis) (1) Pneumonia Current Visit: Yes Status: Acute Qualifiers: Pneumonia type: due to unspecified organism Laterality: bilateral Lung location: lower lobe of lung Qualified Code(s): J18.9 - Pneumonia, unspecified organism (2) Thrombocytopenia Current Visit: Yes Status: Acute (3) Anemia associated with acute blood loss Current Visit: Yes Status: Acute (4) Sepsis Current Visit: Yes Status: Acute Qualifiers: Sepsis type: sepsis due to unspecified organism Sepsis acute organ dysfunction status: with acute organ dysfunction Severe sepsis acute organ dysfunction type: acute respiratory failure Acute respiratory failure type: with hypoxia Severe sepsis shock status: with septic shock Qualified Code(s): A41.9 - Sepsis, unspecified organism; R65.21 - Severe sepsis with septic shock; J96.01 - Acute respiratory failure with hypoxia (5) Cirrhosis Current Visit: Yes Status: Chronic Qualifiers: Hepatic cirrhosis type: alcoholic cirrhosis Ascites presence: without ascites Qualified Code(s): K70.30 - Alcoholic cirrhosis of liver without ascites (6) Portal hypertension Current Visit: Yes Status: Chronic - Plan Continue with plan of care as mentioned below: 1. Continue with IV antibiotics 2. Awaiting cultures 3. Repeat chest x-ray 4. CT scan of the chest reviewed 5. Appreciate pulmonary consultation 6. Continue with nebs; steroids twice daily 7. O2 per protocol 8. Diurese since patient with diastolic heart failure 9. Repeat labs 10. GI and DVT prophylaxis
--- NOTE | 2022-09-16 04:53 | P.PN ---
Date of Service: 09/16/22 Subjective Oxygen requirements still increased; awaiting Hgb; Patient's chest x-ray is improving. Patient denies any new complaints. Continue to wean off of BiPAP and currently on Airvo. Review of Systems 10-point ROS is otherwise unremarkable Physical Examination - Vital Signs reviewed - Physical Exam General: Alert, In no apparent distress; oriented x 3 Respiratory: Diminished breath sounds bilaterally with basilar crackles Cardiovascular: Regular rate/rhythm, Normal S1 S2 Gastrointestinal: NT/ND Normal bowel sounds Neurological: No focal deficits Extremities: No clubbing/cyanosis/no edema Assessment & Plan - Problems (Diagnosis) (1) Multifocal pneumonia Current Visit: Yes Status: Acute Qualifiers: Pneumonia type: due to unspecified organism Laterality: bilateral Lung location: lower lobe of lung Qualified Code(s): J18.9 - Pneumonia, unspecified organism (2) Thrombocytopenia Current Visit: Yes Status: Acute (3) Anemia associated with acute blood loss Current Visit: Yes Status: Acute (4) Sepsis Current Visit: Yes Status: Acute Qualifiers: Sepsis type: sepsis due to unspecified organism Sepsis acute organ dysfunction status: with acute organ dysfunction Severe sepsis acute organ dysfunction type: acute respiratory failure Acute respiratory failure type: with hypoxia Severe sepsis shock status: with septic shock Qualified Code(s): A41.9 - Sepsis, unspecified organism; R65.21 - Severe sepsis with septic shock; J96.01 - Acute respiratory failure with hypoxia (5) Cirrhosis with portal hypertension Current Visit: Yes Status: Chronic Qualifiers: Hepatic cirrhosis type: alcoholic cirrhosis Ascites presence: without ascites Qualified Code(s): K70.30 - Alcoholic cirrhosis of liver without ascites (6) Diastolic heart failure Current Visit: Yes Status: Chronic - Plan Continue with plan of care as mentioned below: 1. Continue with IV antibiotics; patient currently on Levaquin. Remains hypoxic. 2. Cx negative ; continue to monitor patient closely 3. Chest x-ray with multifocal pneumonia -recently showing improvement 4. Cautious with anticoagulation with low Hgb and history of cirrhosis; may start low-dose anticoagulation for DVT prophylaxis 5. Appreciate pulmonary consultation 6. Continue with nebs; steroids twice daily 7. Continue monitoring hemodynamics 8. Diurese since patient with diastolic heart failure ; skills has about a 20 lb weight gain. Most of this is fluid from third-spacing with hypoalbuminemia. Have discussed with patient regarding carotid drink an Ensure high-protein 3 times a day to keep her caloric intake appropriate. If not able to do that then she may need enteric tube feeding. 9. Repeat labs 10. GI and DVT prophylaxis
[2022-09-16 05:04] LABS: Albumin 2.6 g/dL (3.4-5.0); Bilirubin Total 1.1 mg/dL (0.2-1.0); Magnesium 2.4 mg/dL (1.6-2.4); Phosphorus 3.1 mg/dL (2.5-4.9); Potassium 4.2 mmol/L (3.5-5.1); Protein, Total 5.6 g/dL (6.4-8.2)
[2022-09-16] MEDS: METHYLPREDNISOLONE 40 MG INJ IV SCH (07:42)
[2022-09-16] MEDS: CEFTRIAXONE 1,000 MG in NA CHLORIDE 0.9% 50 ML IVPB SCH (07:42)
[2022-09-16] MEDS: Levofloxacin 750mg IV 750 MG/150 ML BAG IV SCH (07:43)
--- NOTE | 2022-09-16 07:46 | RAD REPORT ---
EXAM DESCRIPTION: [place] Single View09/16/2022 5:27 am CLINICAL HISTORY: Cough COMPARISON: September 15, 2022 FINDINGS: Mild to moderate improvement in the left lung opacities. No significant change in extensive right lung opacities. Cardiomegaly
[2022-09-16] MEDS: SOD FERRIC GLUC COMPLX/SUCROSE 250 MG in NA CHLORIDE 0.9% 250 ML IV SCH (08:47)
[2022-09-16] MEDS ORDERED: VANCOMYCIN 1 GM in NA CHLORIDE 0.9% 250 ML IVPB SCH (09:00)
[2022-09-16] MEDS: D5W 1,000 ML IV SCH (13:47)
--- NOTE | 2022-09-16 13:47 | P.PN ---
Subjective Date of Service: 09/16/22 Chief Complaint: Pneumonia, Subjective: Improving (Improving still requiring BiPAP oxygen requirements declining) Review of Systems General: Weakness Respiratory: Shortness of Breath Physical Examination - Vital Signs Temperature: 98.6 F Blood Pressure: 130/66 Pulse: 92 Respirations: 25 Pulse Ox (%): 92 - Physical Exam General: Alert, Cooperative Respiratory: Clear to auscultation bilaterally, Crackles/rales Cardiovascular: No edema, Regular rate/rhythm - Studies Medications List Reviewed: Yes Assessment And Plan - Current Problems (Diagnosis) (1) Respiratory failure Current Visit: Yes Status: Acute Plan: Admitted with respiratory failure still requiring BiPAP FiO2 around 65% Qualifiers: Chronicity: acute (2) Pneumonia Current Visit: Yes Status: Acute Plan: Severe community-acquired pneumonia on Rocephin Levaquin and vancomycin chest x- ray seems to be improving Qualifiers: Pneumonia type: due to unspecified organism Laterality: bilateral Lung location: lower lobe of lung Qualified Code(s): J18.9 - Pneumonia, unspecified organism (3) Iron deficiency anemia Current Visit: Yes Status: Acute Plan: Patient is on IV iron Qualifiers: Iron deficiency anemia type: unspecified iron deficiency Qualified Code(s): D50.9 - Iron deficiency anemia, unspecified Physician Review: Patient Assessed, Agree with Above Assessment and Plan
[2022-09-16] MEDS: MIRTAZAPINE 15 MG TAB PO PRN (20:58)
[2022-09-16] MEDS: ZOLPIDEM TARTRATE 10 MG TABLET PO PRN (20:58)
[2022-09-16] MEDS: ATORVASTATIN 10 MG TAB PO SCH (20:58)
[2022-09-16] MEDS: LACTULOSE 20 GM/30 ML UCUP PO SCH (20:58)
[2022-09-16] MEDS: OXcarbazepine 150 MG TAB PO SCH (20:59)
[2022-09-16] MEDS: lamoTRIgine 100 MG TAB PO SCH (20:59)
[2022-09-17] MEDS: IPRATROPIUM BROM 0.5MG/2.5ML NEB SCH ×4 (01:25→20:00)
[2022-09-17] MEDS: ALBUTEROL 2.5 MG/3 ML NEB SOL NEB SCH ×4 (01:25→20:00)
[2022-09-17] MEDS: D5W 1,000 ML IV SCH (02:08)
[2022-09-17 07:10] LABS: Absolute Lymphocytes (CBC) 1.6 K/uL (0.7-4.9); Hematocrit 25.7 % (36.0-45.0); MCV 80.1 fL (80-100); RBC Red Blood Cell Count 3.22 M/uL (3.86-4.86)
[2022-09-17 07:16] LABS: Protime INR 1.78
[2022-09-17] MEDS: Levofloxacin 750mg IV 750 MG/150 ML BAG IV SCH (07:27)
[2022-09-17 07:30] LABS: Albumin 2.5 g/dL (3.4-5.0); Bilirubin Total 1.6 mg/dL (0.2-1.0); Potassium 3.4 mmol/L (3.5-5.1); Protein, Total 5.2 g/dL (6.4-8.2)
[2022-09-17] MEDS: OXcarbazepine 150 MG TAB PO SCH ×2 (08:36→19:47)
[2022-09-17] MEDS: LACTULOSE 20 GM/30 ML UCUP PO SCH ×2 (08:36→19:45)
[2022-09-17] MEDS: lamoTRIgine 100 MG TAB PO SCH ×2 (08:36→19:46)
[2022-09-17] MEDS ORDERED: HOME MED 1 EA UNK (Simvastatin [Zocor] 20 MG Tablet) PO SCH (09:00)
[2022-09-17] MEDS: SOD FERRIC GLUC COMPLX/SUCROSE 250 MG in NA CHLORIDE 0.9% 250 ML IV SCH (09:16)
[2022-09-17] MEDS: PANTOPRAZOLE INJ 80 MG in NA CHLORIDE 0.9% 250 ML IV SCH ×2 (09:16→19:26)
[2022-09-17 10:02] LABS: Blood Morphology Comment NOTED (NOT SEEN); Platelet Estimate DECR
[2022-09-17 10:03] LABS: Anisocytosis 1+; Polychromasia 1+
[2022-09-17 10:04] LABS: Basophilic Stippling 1+
[2022-09-17] MEDS: POTASSIUM CL SA 10 MEQ TAB PO ONE ×2 (10:41→11:11)
--- NOTE | 2022-09-17 10:50 | P.PN ---
Subjective Date of Service: 09/17/22 Chief Complaint: Pneumonia, No change in patient's condition still continues to remain hypoxic not feeling any better Review of Systems General: Weakness Respiratory: Shortness of Breath Physical Examination - Vital Signs Temperature: 97 F Blood Pressure: 134/66 Pulse: 107 Respirations: 33 Pulse Ox (%): 93 - Physical Exam General: Alert, Moderate distress Respiratory: Crackles/rales (Because on the right side) Cardiovascular: No edema, Regular rate/rhythm, Normal S1 S2 - Studies Medications List Reviewed: Yes Assessment And Plan - Current Problems (Diagnosis) (1) Respiratory failure Current Visit: Yes Status: Acute Plan: Respiratory failure severe bilateral pneumonia no change in present therapy labs reviewed white count is mildly elevated renal function normal hyponatremia mary ected Qualifiers: Chronicity: acute (2) Pneumonia Current Visit: Yes Status: Acute Plan: Severe community-acquired pneumonia on Rocephin Levaquin and vancomycin chest x- ray seems to be improving Qualifiers: Pneumonia type: due to unspecified organism Laterality: bilateral Lung location: lower lobe of lung Qualified Code(s): J18.9 - Pneumonia, unspecified organism (3) Iron deficiency anemia Current Visit: Yes Status: Acute Plan: Patient is on IV iron Qualifiers: Iron deficiency anemia type: unspecified iron deficiency Qualified Code(s): D50.9 - Iron deficiency anemia, unspecified Physician Review: Patient Assessed, Agree with Above Assessment and Plan
[2022-09-17] MEDS ORDERED: MORPHINE 2 MG/ML SYR IV PRN (11:01)
[2022-09-17] MEDS: MORPHINE 2 MG/ML SYR IV PRN ×2 (15:40→21:04)
[2022-09-17] MEDS: METHYLPREDNISOLONE 40 MG INJ IV SCH (15:51)
[2022-09-17] MEDS: KCL 20 MEQ/100 mL IVPB 20 MEQ/100 ML BAG IV SCH ×4 (15:51→23:26)
[2022-09-17] MEDS ORDERED: D5W 1,000 ML IV SCH (16:00)
[2022-09-17] MEDS ORDERED: ALBUMIN HUMAN 25% 50 ML IV ONE ×2 (17:11→21:59)
[2022-09-17] MEDS ORDERED: FUROSEMIDE 20 MG/ 2ML VIAL IV ONE ×2 (17:11→21:59)
[2022-09-17] MEDS ORDERED: FUROSEMIDE 20 MG/ 2ML VIAL ONE (17:19)
[2022-09-17] MEDS: DEXMEDETOMIDINE HCL 200 MCG in NA CHLORIDE 0.9% 98 ML IV SCH (19:47)
[2022-09-17] MEDS: ATORVASTATIN 10 MG TAB PO SCH (19:47)
--- NOTE | 2022-09-17 23:50 | P.PN ---
Date of Service: 09/17/22 Subjective When I walked into the ICU patient was very short of breath and she was very tearful. They had her on BiPAP with an FiO2 at 100%. Oxygen saturations were 100%. She looks to be volume overloaded so we went ahead and diuresed her. She has had about a L of urine output. Will continue with aggressive diuresing. Did speak with ICU nurses about PICC line placement and we can monitor CVP pressures at that time. Continue with BiPAP support at this time. Review of Systems 10-point ROS is otherwise unremarkable Physical Examination - Vital Signs reviewed - Physical Exam General: Alert, In no apparent distress; oriented x 3; BiPAP mask Respiratory: Diminished breath sounds bilaterally with basilar crackles Cardiovascular: Regular rate/rhythm, Normal S1 S2 Gastrointestinal: NT/ND Normal bowel sounds Neurological: No focal deficits Extremities: No clubbing/cyanosis/no edema Assessment & Plan - Problems (Diagnosis) (1) Multifocal pneumonia Current Visit: Yes Status: Acute Qualifiers: Pneumonia type: due to unspecified organism Laterality: bilateral Lung location: lower lobe of lung Qualified Code(s): J18.9 - Pneumonia, unspecified organism (2) Thrombocytopenia Current Visit: Yes Status: Acute (3) Anemia associated with acute blood loss Current Visit: Yes Status: Acute (4) Sepsis Current Visit: Yes Status: Acute Qualifiers: Sepsis type: sepsis due to unspecified organism Sepsis acute organ dysfunction status: with acute organ dysfunction Severe sepsis acute organ dysfunction type: acute respiratory failure Acute respiratory failure type: with hypoxia Severe sepsis shock status: with septic shock Qualified Code(s): A41.9 - Sepsis, unspecified organism; R65.21 - Severe sepsis with septic shock; J96.01 - Acute respiratory failure with hypoxia (5) Cirrhosis with portal hypertension Current Visit: Yes Status: Chronic Qualifiers: Hepatic cirrhosis type: alcoholic cirrhosis Ascites presence: without ascites Qualified Code(s): K70.30 - Alcoholic cirrhosis of liver without ascites (6) Diastolic heart failure Current Visit: Yes Status: Chronic - Plan Continue with plan of care as mentioned below: 1. Continue with IV antibiotics; patient currently on Levaquin. Remains hypoxic. 2. Cx negative ; continue to monitor patient closely 3. Chest x-ray with multifocal pneumonia -recently showing improvement; will repeat 4. Cautious with anticoagulation with low Hgb and history of cirrhosis; may start low-dose anticoagulation for DVT prophylaxis 5. Appreciate pulmonary consultation 6. Continue with nebs; steroids twice daily 7. Will get a PICC line placed. Will also start Precedex after discussing with Pulmonary. May be either a check CVP pressures once PICC line is placed. 8. Diuresing since patient with diastolic heart failure-20 lb weight gain. Most of this is fluid from third-spacing with hypoalbuminemia. Have discussed with patient regarding drinking an Ensure high-protein 3 times a day to keep her caloric intake appropriate. If not able to do that then she may need enteric tube feeding. 9. Repeat labs 10. GI and DVT prophylaxis
--- NOTE | 2022-09-17 23:51 | P.PN ---
Date of Service: 09/18/22 Subjective Patient is a 57-year-old female who came into the hospital with shortness of breath. Patient was found to have multifocal pneumonia. Patient also has a history of cirrhosis with mild portal hypertension. Echocardiogram also revealed diastolic heart failure with mitral regurgitation. Patient was treated with IV antibiotic therapy. She was also gently diuresed. Patient was not really making a lot of improvement and we have had a hard time weaning her off the BiPAP. She was very agitated yesterday so we went ahead and started Precedex. We did gently diurese her yesterday and she did put out about 3 L over 24 hours. Her respiratory status is very slow to improve. She is also going through a divorce and her mother is her medical power of trust and estates attorney. At this time we will continue with antibiotic therapy along with nebs and low-dose steroids. She has thrombocytopenia and anemia and will monitoring her platelet and hemoglobin count closely. Patient will be monitored closely in the intensive care unit. Anticipated very slow improvement over the course of 1-2 weeks. Physical Examination - Vital Signs reviewed - Physical Exam General: Alert, In no apparent distress; oriented x 3; BiPAP mask Respiratory: Diminished breath sounds bilaterally with basilar crackles Cardiovascular: Regular rate/rhythm, Normal S1 S2 Gastrointestinal: NT/ND Normal bowel sounds Neurological: No focal deficits Extremities: No clubbing/cyanosis/no edema Assessment & Plan - Problems (Diagnosis) (1) Multifocal pneumonia Current Visit: Yes Status: Acute Qualifiers: Pneumonia type: due to unspecified organism Laterality: bilateral Lung location: lower lobe of lung Qualified Code(s): J18.9 - Pneumonia, unspecified organism (2) Thrombocytopenia Current Visit: Yes Status: Acute (3) Anemia associated with acute blood loss Current Visit: Yes Status: Acute (4) Sepsis Current Visit: Yes Status: Acute Qualifiers: Sepsis type: sepsis due to unspecified organism Sepsis acute organ dysfunction status: with acute organ dysfunction Severe sepsis acute organ dysfunction type: acute respiratory failure Acute respiratory failure type: with hypoxia Severe sepsis shock status: with septic shock Qualified Code(s): A41.9 - Sepsis, unspecified organism; R65.21 - Severe sepsis with septic shock; J96.01 - Acute respiratory failure with hypoxia (5) Cirrhosis with portal hypertension Current Visit: Yes Status: Chronic Qualifiers: Hepatic cirrhosis type: alcoholic cirrhosis Ascites presence: without ascites Qualified Code(s): K70.30 - Alcoholic cirrhosis of liver without ascites (6) Diastolic heart failure Current Visit: Yes Status: Chronic - Plan Continue with plan of care as mentioned below: 1. Continue with IV antibiotics; patient currently on Levaquin. Remains hypoxic. 2. Cx negative ; continue to monitor patient closely 3. Chest x-ray with multifocal pneumonia -recently showing improvement; will repeat imaging studies 4. Cautious with anticoagulation with low Hgb and thrombocytopenia. Patient also with a history of cirrhosis; may resume low-dose anticoagulation for DVT prophylaxis 5. Appreciate pulmonary consultation 6. Continue with nebs; steroids twice daily 7. PICC line placed. Cont Precedex; CVP estimated to be around 20mmHg. 8. Diuresing since patient with diastolic heart failure-20 lb weight gain. Most of this is fluid from third-spacing with hypoalbuminemia. Have discussed with patient regarding drinking an Ensure high-protein 3 times a day to keep her caloric intake appropriate. If not able to do that then she may need enteric tube feeding. 9. Repeat labs 10. GI and DVT prophylaxis
[2022-09-17] MEDS ORDERED: NA CHLORIDE 0.9% 500 ML ONE (23:52)
[2022-09-18] MEDS: ALBUTEROL 2.5 MG/3 ML NEB SOL NEB SCH ×4 (01:08→19:12)
[2022-09-18] MEDS: IPRATROPIUM BROM 0.5MG/2.5ML NEB SCH ×4 (01:08→19:12)
[2022-09-18] MEDS: METHYLPREDNISOLONE 40 MG INJ IV SCH ×2 (03:33→16:01)
[2022-09-18 05:20] LABS: Absolute Lymphocytes (CBC) 0.5 K/uL (0.7-4.9); Hematocrit 22.4 % (36.0-45.0); Lymphocytes % 4.8 % (15.3-44.8); MCV 79.7 fL (80-100); MPV 7.1 fL (7.6-11.3); RBC Red Blood Cell Count 2.81 M/uL (3.86-4.86)
[2022-09-18 05:34] LABS: Albumin 2.4 g/dL (3.4-5.0); Bilirubin Total 1.7 mg/dL (0.2-1.0); Phosphorus 3.2 mg/dL (2.5-4.9); Potassium 4.2 mmol/L (3.5-5.1); Protein, Total 4.8 g/dL (6.4-8.2)
[2022-09-18 05:35] LABS: Magnesium 1.8 mg/dL (1.6-2.4)
[2022-09-18 05:41] LABS: Blood Morphology Comment NOTED (NOT SEEN); Hypochromasia 1+; Platelet Estimate DECR
[2022-09-18] MEDS: PANTOPRAZOLE INJ 80 MG in NA CHLORIDE 0.9% 250 ML IV SCH ×2 (06:13→14:11)
[2022-09-18] MEDS: Levofloxacin 750mg IV 750 MG/150 ML BAG IV SCH (07:23)
--- NOTE | 2022-09-18 07:30 | RAD REPORT ---
EXAM DESCRIPTION: RAD - Chest Single View - 09/18/2022 7:05 am CLINICAL HISTORY: pneumonia Chest pain. COMPARISON: Chest Single View dated 09/17/2022; Chest Single View dated 09/16/2022; Chest Single View dated 09/15/2022; Chest Single View dated 09/13/2022 FINDINGS: Portable technique limits examination quality. Extensive bilateral pulmonary opacities are noted, fractionally improved since 09/17/2022 prior study . The heart is moderately enlarged in size. Right-sided PICC line has tip in the right atrium.
[2022-09-18] MEDS: lamoTRIgine 100 MG TAB PO SCH ×2 (09:02→20:36)
[2022-09-18] MEDS: OXcarbazepine 150 MG TAB PO SCH ×2 (09:02→20:36)
[2022-09-18] MEDS: LACTULOSE 20 GM/30 ML UCUP PO SCH ×2 (09:02→20:36)
--- NOTE | 2022-09-18 10:37 | P.PN ---
Subjective Date of Service: 09/18/22 Chief Complaint: Respiratory failure Patient is only marginal better more comfortable on dexmedetomidine drip and TPN oxygen requirements are declining chest x-ray marginal improvement Review of Systems is unable to be obtained Physical Examination - Vital Signs Temperature: 97.5 F Blood Pressure: 97/52 Pulse: 68 Respirations: 22 Pulse Ox (%): 97 - Physical Exam General: Unresponsive Respiratory: Diminished, Crackles/rales - Studies Medications List Reviewed: Yes Assessment And Plan - Current Problems (Diagnosis) (1) Respiratory failure Current Visit: Yes Status: Acute Plan: Patient admitted with respiratory failure steadily improving on BiPAP TPN dexmedetomidine drip chemistries reviewed white count declining cultures so far negative Qualifiers: Chronicity: acute (2) Pneumonia Current Visit: Yes Status: Acute Plan: Severe community-acquired pneumonia currently on Levaquin chest x-ray marginal improvement White count normal normal normal procalcitonin level declined Qualifiers: Pneumonia type: due to unspecified organism Laterality: bilateral Lung location: lower lobe of lung Qualified Code(s): J18.9 - Pneumonia, unspecified organism (3) Iron deficiency anemia Current Visit: Yes Status: Acute Plan: Patient is on IV iron Qualifiers: Iron deficiency anemia type: unspecified iron deficiency Qualified Code(s): D50.9 - Iron deficiency anemia, unspecified Physician Review: Patient Assessed, Agree with Above Assessment and Plan
[2022-09-18] MEDS: AA 5%/D20W/ELECTROLYTES-TPN 2,000 ML IV SCH (12:44)
[2022-09-18 12:53] LABS: Absolute Lymphocytes (CBC) 0.5 K/uL (0.7-4.9); Hematocrit 23.1 % (36.0-45.0); Lymphocytes % 4.5 % (15.3-44.8); MCV 79.7 fL (80-100); MPV 7.3 fL (7.6-11.3); RBC Red Blood Cell Count 2.91 M/uL (3.86-4.86)
[2022-09-18] MEDS: DEXMEDETOMIDINE HCL 200 MCG in NA CHLORIDE 0.9% 98 ML IV SCH (16:12)
[2022-09-18] MEDS ORDERED: ENOXAPARIN 40 MG/0.4 ML SQ SCH (17:00)
[2022-09-18] MEDS ORDERED: ALBUMIN HUMAN 25% 50 ML IV ONE (17:21)
--- NOTE | 2022-09-18 19:57 | RAD REPORT ---
EXAM DESCRIPTION: XR Chest, 1 View CLINICAL HISTORY: S/P PICC insertion TECHNIQUE: Frontal view of the chest. COMPARISON: No relevant prior studies available. FINDINGS: Lungs: Extensive bilateral opacities more confluent at the lung bases with relative spar ing at the left greater than right upper lung zones. Pleural space: Unremarkable. No pneumothorax. Heart: The cardiac silhouette is enlarged. Mediastinum: Unremarkable. Bones/joints: Unremarkable. Tubes, lines and devices: Right upper extremity PICC tip projects over the superior vena cava right atrial junction. IMPRESSION: 1. Right upper extremity PICC tip projects over the superior vena cava right atrial ju nction. 2. Diffuse bilateral infiltrates. Electronically signed by: Campbell oLpez MD 09/17/2022 11:52 PM LITIGATION COORDINATOR Due to temporary technical issues with the PACS/Fluency reporting system, reports are being signed by the in house radiologists without review as a courtesy to insure prompt reporting. The interpreting radiologist is fully responsible for the content of the report.
[2022-09-18] MEDS: ATORVASTATIN 10 MG TAB PO SCH (20:36)
[2022-09-18] MEDS: MORPHINE 2 MG/ML SYR IV PRN (20:37)
[2022-09-19] MEDS: PANTOPRAZOLE INJ 80 MG in NA CHLORIDE 0.9% 250 ML IV SCH (00:33)
[2022-09-19] MEDS: ALBUTEROL 2.5 MG/3 ML NEB SOL NEB SCH ×4 (00:50→19:45)
[2022-09-19] MEDS: IPRATROPIUM BROM 0.5MG/2.5ML NEB SCH ×4 (00:50→19:45)
[2022-09-19] MEDS: METHYLPREDNISOLONE 40 MG INJ IV SCH ×2 (04:30→15:56)
[2022-09-19 05:18] LABS: Absolute Lymphocytes (CBC) 0.3 K/uL (0.7-4.9); Hematocrit 23.1 % (36.0-45.0); Lymphocytes % 2.4 % (15.3-44.8); MCV 80.2 fL (80-100); MPV 6.9 fL (7.6-11.3); RBC Red Blood Cell Count 2.88 M/uL (3.86-4.86)
[2022-09-19 05:29] LABS: Albumin 2.5 g/dL (3.4-5.0); Bilirubin Total 1.2 mg/dL (0.2-1.0); Magnesium 2.3 mg/dL (1.6-2.4); Potassium 3.8 mmol/L (3.5-5.1); Protein, Total 5.2 g/dL (6.4-8.2)
[2022-09-19] MEDS: MORPHINE 2 MG/ML SYR IV PRN ×4 (05:45→19:52)
[2022-09-19] MEDS: DEXMEDETOMIDINE HCL 200 MCG in NA CHLORIDE 0.9% 98 ML IV SCH ×2 (06:13→16:02)
[2022-09-19] MEDS: Levofloxacin 750mg IV 750 MG/150 ML BAG IV SCH (07:31)
[2022-09-19] MEDS ORDERED: KCL 20 MEQ/100 mL IVPB 20 MEQ/100 ML BAG IV SCH (08:00)
[2022-09-19] MEDS: LACTULOSE 20 GM/30 ML UCUP PO SCH ×2 (08:21→20:20)
[2022-09-19] MEDS: lamoTRIgine 100 MG TAB PO SCH ×2 (08:21→20:20)
[2022-09-19] MEDS: OXcarbazepine 150 MG TAB PO SCH ×2 (08:21→20:21)
--- NOTE | 2022-09-19 08:42 | RAD REPORT ---
EXAM DESCRIPTION: RAD - Chest Single View - 09/19/2022 5:18 am CLINICAL HISTORY: pneumonia Chest pain. COMPARISON: Chest Single View dated 09/18/2022; Chest Single View dated 09/17/2022; Chest Single View dated 09/16/2022; Chest Single View dated 09/15/2022 FINDINGS: Portable technique limits examination quality. Extensive bilateral pulmonary opacities are again seen, greater on the right and appearing mildly pro gressive since the comparative study from yesterday. The heart is moderately enlarged. Right-sided PI CC line has tip in the SVC.
--- NOTE | 2022-09-19 08:57 | P.PN ---
Subjective Date of Service: 09/19/22 Chief Complaint: Respiratory failure No acute events overnight. She is breathing comfortably on the BiPAP machine. She endorses persistent shortness of breath, but states that it has improved since admission. She denies any chest pain or palpitations. Blood pressures have remained soft overnight. Review of Systems 10-point ROS is otherwise unremarkable Respiratory: Cough, Shortness of Breath Physical Examination - Vital Signs Temperature: 97 F Blood Pressure: 109/57 Pulse: 72 Respirations: 33 Pulse Ox (%): 94 - Physical Exam General: Alert, In no apparent distress, Oriented x3 HEENT: Atraumatic, EOMI, Sclerae nonicteric Neck: JVD not distended Respiratory: Diminished, Crackles/rales (bibasilar) Cardiovascular: No edema, Regular rate/rhythm, Normal S1 S2, No gallops, No rubs, No murmurs Gastrointestinal: Normal bowel sounds, Soft and benign, Non-distended, No tenderness, No rebound, No guarding Musculoskeletal: No clubbing Integumentary: No rashes Neurological: Normal speech, Normal affect - Studies Microbiology Data (last 24 hrs): 09/13/22 21:54 Blood - Blood Aerobic Blood Culture - Final No growth in 5 days. 09/13/22 21:54 Blood - Blood Anaerobic Blood Culture - Final No growth in 5 days. 09/13/22 21:21 Blood - Blood Aerobic Blood Culture - Final No growth in 5 days. 09/13/22 21:21 Blood - Blood Anaerobic Blood Culture - Final No growth in 5 days. Medications List Reviewed: Yes Assessment And Plan - Plan # Suspected Septic Shock likely secondary to Multifocal Pneumonia - POA She met sepsis criteria based on HR > 90 bpm, RR > 20 breaths/min, and WBC > 12,000, and the suspected source is pneumonia. Severe sepsis is suspected due to concern for tissue hypoperfusion/organ dysfunction based on acute respiratory failure requiring BiPAP and lactic acid > 2 mmol/L. Septic shock is suspected due to initial lactate > 4 mmol/L. - Sepsis order set was initiated - Initial Lactate was 5.4 -> 2.9 - Blood cultures drawn before antibiotics were given - Broad spectrum antibiotics started: Levofloxacin - In regards to fluids: - 30 mL/kg of IV fluids was not administered given SBP > 90 and concern for volume overload - Sepsis reassessment completed by Cristin Dallas PA-C on 09/14/2022 @ 05:34 AM. # Acute on Chronic Decompensated Diastolic Congestive Heart Failure with Preserved Ejection Fraction - Consulted Cardiology - recommendations appreciated - Transthoracic echocardiogram = "1. normal left ventricular ejection fraction 55-60% with normal wall motion 2. moderate diastolic dysfunction 3. left atrial enlargement 4. moderate mitral regurgitation 5. mild tricuspid regurgitation" - Diuresis per Cardiology - Daily weights - Strict I/O - Cardiac diet, 1.5 L fluid restriction, 2 g Na restriction # Acute Hypoxemic Respiratory Failure - likely secondary to above - Evaluation thus far: - D-Dimer = pending - Procalcitonin = 0.31 -> 0.24 -> 0.12 - ABG = pH 7.37, PCO2 38.4, PO2 56.1 - Chest x-ray (09/13) = "extensive bilateral pulmonary opacities are present, greater on the right. This may represent bilateral pneumonia or pulmonary edema. The heart is mildly enlarged in size. No displaced fractures." - CT chest (09/13) = " 1. Extensive bilateral pulmonary infiltrates. 2. Findings suggestive of hepatic cirrhosis and sequela of portal hypertension. 3. Other findings as above." - Chest x-ray (09/19) = "extensive bilateral pulmonary opacities are again seen, greater on the right and appearing mildly progressive since the comparative study from yesterday. The heart is moderately enlarged. Right-sided PICC line has tip in the SVC." - Management plan: - Consulted Pulmonary Medicine - recommendations appreciated - Consulted Respiratory Therapy - Supplemental oxygen to maintain SpO2 > 92% - Continue levofloxacin - Encouraged incentive spirometry # Alcoholic Cirrhosis complicated by Portal Hypertension # Cholelithiasis - Abdominal ultrasound = "cholelithiasis without evidence cholecystitis. Borderline splenomegaly. Mildly increased hepatic echotexture may indicate mild fatty infiltration. Mildly nodular hepatic contour indicating chronic disease." - MELD score = 14 - Continue lactulose - Continue dexmedetomidine - wean as tolerated # Hypertension - Hold home anti-hypertensives given soft blood pressures # Hyperlipidemia - Continue home atorvastatin Jeremy Beard M.D.
[2022-09-19] MEDS ORDERED: D50W 25 GM/50 ML SYRINGE IV PRN (09:19)
[2022-09-19] MEDS ORDERED: GLUCAGON 1 MG/VIAL IM PRN (09:19)
[2022-09-19] MEDS ORDERED: D10W 125 ML IV PRN (09:28)
[2022-09-19] MEDS ORDERED: SODIUM CHLORIDE 0.9% 10ML INJ IV PRN (09:40)
[2022-09-19] MEDS: INSULIN -REGULAR HUMAN 50 UNIT/0.5 ML ML SQ SCH ×2 (11:43→20:30)
[2022-09-19] MEDS ORDERED: guaiFENesin 100 MG/5 ML UCUP PO PRN (11:55)
[2022-09-19 13:15] LABS: Arterial Blood Carboxyhemoglob 1.9 % (0-1.5); Blood Gas Oxyhemoglobin 91.5 % (94-97); Blood O2 Saturation 94.8 % (92-98.5)
[2022-09-19] MEDS ORDERED: FUROSEMIDE 40 MG/4 ML VIAL IV ONE ×2 (13:19→21:00)
--- NOTE | 2022-09-19 13:50 | RAD REPORT ---
EXAM DESCRIPTION: US - Extrem Venous W Compress Shaun - 09/19/2022 1:43 pm CLINICAL HISTORY: Elevated D-dimer. COMPARISON: None. TECHNIQUE: Real-time sonographic grayscale, color-flow, and spectral wave Doppler evaluation of the bilateral lower extremity deep venous systems was performed. FINDINGS: Normal compressibility, flow augmentation, phasic flow and spontaneous flow is identified in both the left and right lower extremity deep venous systems. No intraluminal filling defects seen. IMPRESSION: No DVT identified in either lower extremity.
[2022-09-19] MEDS: AA 5%/D20W/ELECTROLYTES-TPN 2,000 ML, Lipids 20% 250 ML with MULTIVITAMINS INJ 10 ML IV SCH ×3 (17:30)
[2022-09-19] MEDS ORDERED: NA CHLORIDE 0.9% 490 ML with DEXMEDETOMIDINE HCL 1,000 MCG IV SCH ×2 (18:00)
[2022-09-19] MEDS: MUPIROCIN 2% OINT 22GM TUBE TOP SCH (20:19)
[2022-09-19] MEDS: PANTOPRAZOLE 40 MG INJ IVP SCH (20:21)
[2022-09-19] MEDS: ATORVASTATIN 10 MG TAB PO SCH (20:21)
[2022-09-19] MEDS: ZOLPIDEM TARTRATE 10 MG TABLET PO PRN (20:31)
--- NOTE | 2022-09-19 23:57 | CON ---
Date of Consultation: 09/19/2022 Reason For Consultation: Respiratory failure and questionable congestive heart failure. History Of Present Illness: This 57-year-old female with history of hypertension, dyslipidemia, and asthma presented with respiratory distress and hypoxic. She was diagnosed with pneumonia, started on antibiotics. However, she is requiring high flow oxygen and BiPAP and not able to lay in her bed du e to significant orthopnea and lower extremity edema. I saw her by bedside. She was in mild respira tory distress. On exam, she had significant heart failure signs. Past Medical History: As outlined above in the HPI. Medications: Refer to reconciliation sheet for detailed list. Allergies: NO KNOWN DRUG ALLERGIES. Family History: No premature coronary artery disease or cancer. Social History: She does not smoke or drink. Does not use any drugs. Review of Systems: All systems reviewed and they were negative except for mentioned in HPI. Physical Examination: Vital Signs: Reviewed. Head And Neck: Pupils are equal and reactive to light. Intact eye movements. Positive JVD. No cer vical lymphadenopathy. Neck is supple. Thyroid is not enlarged. Lungs: Crackles half the way up bilaterally with mild respiratory distress. Heart: Regular rate and rhythm. No extra sounds. Abdomen: Soft, nontender. Bowel sounds positive. No organomegaly. No masses or hernia. No rigidi ty or rebound. Extremities: No clubbing or cyanosis. Intact pulses. 1 to 2+ pitting edema bilaterally. Neurologic: Alert, awake, and oriented x3. No acute focal deficits appreciated. Investigations: NT-proBNP was 2002. Her BUN is 20, creatinine 0.65 and highly sensitive troponin wa s negative. Assessment/recommendation: 1.Acute hypoxic respiratory failure. Definitely there is a good component of congestive heart failu re exacerbation. I challenged her with 40 mg of Lasix IV. She put out immediately close to 2 L and she is feeling better. Recommend to continue Lasix 40 mg q.12 hours and monitor BUN, creatinine, and electrolytes. On echo, her ejection fraction was normal, but she has moderate diastolic dysfunction . 2.[id number] diastolic heart failure exacerbation. Aggressive diuresis as outlined above. 3.Elevated D-dimer of 64,000. Definitely pulmonary embolus is a consideration. Recommend full anti coagulation and pending V/Q scan or CTA angiogram of lungs. Thank you for the consult. SR/MODL Voice ID: [id number] Report ID: [id number]
[2022-09-20] MEDS: IPRATROPIUM BROM 0.5MG/2.5ML NEB SCH ×4 (02:00→21:00)
[2022-09-20] MEDS: MORPHINE 2 MG/ML SYR IV PRN ×3 (02:00→23:15)
[2022-09-20] MEDS: ALBUTEROL 2.5 MG/3 ML NEB SOL NEB SCH ×4 (02:00→21:00)
[2022-09-20] MEDS: METHYLPREDNISOLONE 40 MG INJ IV SCH ×2 (05:15→15:56)
[2022-09-20 05:32] LABS: Absolute Lymphocytes (CBC) 0.7 K/uL (0.7-4.9); Hematocrit 26.9 % (36.0-45.0); Lymphocytes % 4.5 % (15.3-44.8); MCV 80.5 fL (80-100); RBC Red Blood Cell Count 3.35 M/uL (3.86-4.86)
[2022-09-20 05:57] LABS: Potassium 3.9 mmol/L (3.5-5.1)
[2022-09-20] MEDS: INSULIN -REGULAR HUMAN 50 UNIT/0.5 ML ML SQ SCH ×4 (06:00→18:00)
--- NOTE | 2022-09-20 07:40 | RAD REPORT ---
EXAM DESCRIPTION: RAD - Chest Single View - 09/20/2022 5:19 am CLINICAL HISTORY: pneumonia COMPARISON: Chest Single View dated 09/19/2022; Chest Single View dated 09/18/2022; Chest Single View dated 09/17/2022; Chest Single View dated 09/16/2022; Thorax W/ Con dated 09/13/2022 FINDINGS: Lines: Right subclavian approach PICC with tip overlying the SVC. Lungs: Similar widespread bilateral interstitial airspace disease. Pleural: No significant pleural effusions or pneumothorax. Cardiac: Cardiomegaly. Mediastinum: Within normal limits. Bones: No acute fractures. Other: None IMPRESSION: Similar widespread airspace disease which may reflect multifocal pneumonia, edema, and/o r ARDS.
[2022-09-20] MEDS: MUPIROCIN 2% OINT 22GM TUBE TOP SCH ×2 (08:26→19:37)
[2022-09-20] MEDS: Levofloxacin 750mg IV 750 MG/150 ML BAG IV SCH (08:26)
[2022-09-20] MEDS: FUROSEMIDE 40 MG/4 ML VIAL IV SCH ×2 (08:26→16:45)
[2022-09-20] MEDS: PANTOPRAZOLE 40 MG INJ IVP SCH ×2 (08:26→19:36)
[2022-09-20] MEDS: lamoTRIgine 100 MG TAB PO SCH ×2 (08:27→19:19)
[2022-09-20] MEDS: LACTULOSE 20 GM/30 ML UCUP PO SCH ×2 (08:27→19:19)
[2022-09-20] MEDS: OXcarbazepine 150 MG TAB PO SCH ×2 (08:28→19:19)
--- NOTE | 2022-09-20 09:37 | P.PN ---
Subjective Date of Service: 09/20/22 Chief Complaint: Respiratory failure No acute events overnight. She remains BiPAP-dependent at this time. She reports that her breathing is unchanged compared to yesterday. Per Dr. Darden, he is concerned that she has developed ARDS. Review of Systems 10-point ROS is otherwise unremarkable Respiratory: Shortness of Breath Physical Examination - Vital Signs Temperature: 97.0 F Blood Pressure: 115/65 Pulse: 69 Respirations: 24 Pulse Ox (%): 92 - Studies Medications List Reviewed: Yes Assessment And Plan - Plan - Physical Exam General: Alert, In no apparent distress, Oriented x3 HEENT: Atraumatic, EOMI, Sclerae nonicteric Neck: JVD not distended Respiratory: Diminished, Crackles/rales (bibasilar) Cardiovascular: No edema, Regular rate/rhythm, No gallops, No rubs, No murmurs Gastrointestinal: Normal bowel sounds, Soft and benign, Non-distended, No tenderness Musculoskeletal: No clubbing Integumentary: No rashes Neurological: Normal speech, Normal affect # Suspected Septic Shock likely secondary to Multifocal Pneumonia - POA # Thrombocytopenia suspect secondary to Sepsis She met sepsis criteria based on HR > 90 bpm, RR > 20 breaths/min, and WBC > 12,000, and the suspected source is pneumonia. Severe sepsis is suspected due to concern for tissue hypoperfusion/organ dysfunction based on acute respiratory failure requiring BiPAP and lactic acid > 2 mmol/L. Septic shock is suspected due to initial lactate > 4 mmol/L. - Sepsis order set was initiated - Initial Lactate was 5.4 -> 2.9 - Blood cultures drawn before antibiotics were given - Broad spectrum antibiotics started: Levofloxacin - In regards to fluids: - 30 mL/kg of IV fluids was not administered given SBP > 90 and concern for volume overload - Sepsis reassessment completed by Cristin Dallas PA-C on 09/14/2022 @ 05:34 AM. # Acute on Chronic Decompensated Diastolic Congestive Heart Failure with Preserved Ejection Fraction - Consulted Cardiology - recommendations appreciated - Transthoracic echocardiogram = "1. normal left ventricular ejection fraction 55-60% with normal wall motion 2. moderate diastolic dysfunction 3. left atrial enlargement 4. moderate mitral regurgitation 5. mild tricuspid regurgitation" - Diuresis per Cardiology - Daily weights - Strict I/O - Cardiac diet, 1.5 L fluid restriction, 2 g Na restriction # Acute Hypoxemic Respiratory Failure - likely secondary to above - with concern for progression into Acute Respiratory Distress Syndrome (ARDS) - Evaluation thus far: - D-Dimer = 64,709 - CT chest angiogram ordered, but unable to be obtained due to her hemodynamic instability. Discussed with Dr. Darden (Pulmonology), he believes that her d-dimer is elevated due to ARDS. He recommended against systemic anticoagulation given her thrombocytopenia. Will continue to monitor closely. - Procalcitonin = 0.31 -> 0.24 -> 0.12 - ABG = pH 7.37, PCO2 38.4, PO2 56.1 - Chest x-ray (09/13) = "extensive bilateral pulmonary opacities are present, greater on the right. This may represent bilateral pneumonia or pulmonary edema. The heart is mildly enlarged in size. No displaced fractures." - CT chest (09/13) = " 1. Extensive bilateral pulmonary infiltrates. 2. Findings suggestive of hepatic cirrhosis and sequela of portal hypertension. 3. Other findings as above." - Chest x-ray (09/19) = "extensive bilateral pulmonary opacities are again seen, greater on the right and appearing mildly progressive since the comparative study from yesterday. The heart is moderately enlarged. Right-sided PICC line has tip in the SVC." - Management plan: - Consulted Pulmonary Medicine - recommendations appreciated - Consulted Respiratory Therapy - Supplemental oxygen to maintain SpO2 > 92% - Continue levofloxacin - Encouraged incentive spirometry # Alcoholic Cirrhosis complicated by Portal Hypertension # Cholelithiasis - Abdominal ultrasound = "cholelithiasis without evidence cholecystitis. Borderline splenomegaly. Mildly increased hepatic echotexture may indicate mild fatty infiltration. Mildly nodular hepatic contour indicating chronic disease." - MELD score = 14 - Continue lactulose - Continue dexmedetomidine - wean as tolerated # Hypertension - Hold home anti-hypertensives given soft blood pressures # Hyperlipidemia - Continue home atorvastatin Jeremy Beard M.D.
--- NOTE | 2022-09-20 12:21 | P.PN ---
Subjective Date of Service: 09/20/22 Chief Complaint: Respiratory failure Respiratory failure on BiPAP and stated that she is improving on a dexmedetomidine drip Review of Systems is unable to be obtained Physical Examination - Vital Signs Temperature: 97.0 F Blood Pressure: 122/65 Pulse: 71 Respirations: 18 Pulse Ox (%): 94 - Physical Exam General: Alert, Moderate distress Respiratory: Clear to auscultation bilaterally, Diminished Cardiovascular: No edema, Regular rate/rhythm - Studies Medications List Reviewed: Yes Assessment And Plan - Current Problems (Diagnosis) (1) Respiratory failure Current Visit: Yes Status: Acute Plan: Respiratory failure condition stable on high concentrations of oxygen stable for bronchoscopy TPN hemoglobin stable Qualifiers: Chronicity: acute (2) Pneumonia Current Visit: Yes Status: Acute Plan: Severe community-acquired pneumonia currently on Levaquin chest x-ray marginal improvement White count is elevated repeat serum procalcitonin level Qualifiers: Pneumonia type: due to unspecified organism Laterality: bilateral Lung location: lower lobe of lung Qualified Code(s): J18.9 - Pneumonia, unspecified organism (3) Iron deficiency anemia Current Visit: Yes Status: Acute Plan: Patient is on IV iron Qualifiers: Iron deficiency anemia type: unspecified iron deficiency Qualified Code(s): D50.9 - Iron deficiency anemia, unspecified Physician Review: Patient Assessed, Agree with Above Assessment and Plan
[2022-09-20] MEDS: DEXMEDETOMIDINE HCL 1,000 MCG in NA CHLORIDE 0.9% 490 ML IV SCH (15:23)
[2022-09-20] MEDS: AA 5%/D20W/ELECTROLYTES-TPN 2,000 ML IV SCH (16:47)
[2022-09-20] MEDS: ATORVASTATIN 10 MG TAB PO SCH (19:21)
[2022-09-21] MEDS ORDERED: MORPHINE 2 MG/ML SYR IV ONE (02:32)
[2022-09-21] MEDS: IPRATROPIUM BROM 0.5MG/2.5ML NEB SCH ×4 (02:35→20:35)
[2022-09-21] MEDS: ALBUTEROL 2.5 MG/3 ML NEB SOL NEB SCH ×4 (02:35→20:35)
[2022-09-21] MEDS: DEXMEDETOMIDINE HCL 1,000 MCG in NA CHLORIDE 0.9% 490 ML IV SCH ×2 (02:53→14:51)
[2022-09-21] MEDS: METHYLPREDNISOLONE 40 MG INJ IV SCH ×2 (04:05→12:29)
[2022-09-21 04:59] LABS: Absolute Lymphocytes (CBC) 0.8 K/uL (0.7-4.9); Hematocrit 27.9 % (36.0-45.0); Lymphocytes % 6.2 % (15.3-44.8); MPV 7.4 fL (7.6-11.3); RBC Red Blood Cell Count 3.44 M/uL (3.86-4.86)
[2022-09-21 05:11] LABS: Potassium 3.9 mmol/L (3.5-5.1)
[2022-09-21] MEDS: INSULIN -REGULAR HUMAN 50 UNIT/0.5 ML ML SQ SCH ×4 (06:00→17:11)
--- NOTE | 2022-09-21 08:12 | P.PN ---
Subjective Date of Service: 09/21/22 Chief Complaint: Respiratory failure She experienced intermittent episodes of agitation, but was easily re- directable. She remains BiPAP-dependent - FiO2 remains at 80 %. She denies any changes in her breathing. Review of Systems 10-point ROS is otherwise unremarkable Respiratory: Cough, Shortness of Breath Physical Examination - Vital Signs Temperature: 97.0 F Blood Pressure: 134/61 Pulse: 73 Respirations: 20 Pulse Ox (%): 94 - Studies Medications List Reviewed: Yes Assessment And Plan - Plan - Physical Exam General: Alert, In no apparent distress, Oriented x3 HEENT: Atraumatic, Sclerae nonicteric Neck: JVD not distended Respiratory: Diminished, Crackles/rales (bibasilar - unchanged) Cardiovascular: No edema, Regular rate/rhythm, No murmurs Gastrointestinal: Normal bowel sounds, Soft, Non-distended, No tenderness Musculoskeletal: No clubbing Integumentary: No rashes Neurological: Normal speech, Normal affect # Suspected Septic Shock likely secondary to Multifocal Pneumonia - POA # Thrombocytopenia suspect secondary to Sepsis She met sepsis criteria based on HR > 90 bpm, RR > 20 breaths/min, and WBC > 12,000, and the suspected source is pneumonia. Severe sepsis is suspected due to concern for tissue hypoperfusion/organ dysfunction based on acute respiratory failure requiring BiPAP and lactic acid > 2 mmol/L. Septic shock is suspected due to initial lactate > 4 mmol/L. - Sepsis order set was initiated - Initial Lactate was 5.4 -> 2.9 - Blood cultures drawn before antibiotics were given - Broad spectrum antibiotics started: Levofloxacin - In regards to fluids: - 30 mL/kg of IV fluids was not administered given SBP > 90 and concern for volume overload - Sepsis reassessment completed by Cristin Dallas PA-C on 09/14/2022 @ 05:34 AM. # Acute on Chronic Decompensated Diastolic Congestive Heart Failure with Preserved Ejection Fraction - Consulted Cardiology - recommendations appreciated - Transthoracic echocardiogram = "1. normal left ventricular ejection fraction 55-60% with normal wall motion 2. moderate diastolic dysfunction 3. left atrial enlargement 4. moderate mitral regurgitation 5. mild tricuspid regurgitation" - Diuresis per Cardiology - Daily weights - Strict I/O - Cardiac diet, 1.5 L fluid restriction, 2 g Na restriction # Acute Hypoxemic Respiratory Failure - likely secondary to above - with concern for progression into Acute Respiratory Distress Syndrome (ARDS) - Evaluation thus far: - D-Dimer = 64,709 - CT chest angiogram ordered, but unable to be obtained due to her hemodynamic instability. Discussed with Dr. Darden (Pulmonology), he believes that her d-dimer is elevated due to ARDS. He recommended against systemic anticoagulation given her thrombocytopenia. Will continue to monitor closely. - Procalcitonin = 0.31 -> 0.24 -> 0.12 - ABG = pH 7.37, PCO2 38.4, PO2 56.1 - Chest x-ray (09/13) = "extensive bilateral pulmonary opacities are present, greater on the right. This may represent bilateral pneumonia or pulmonary edema. The heart is mildly enlarged in size. No displaced fractures." - CT chest (09/13) = " 1. Extensive bilateral pulmonary infiltrates. 2. Findings suggestive of hepatic cirrhosis and sequela of portal hypertension. 3. Other findings as above." - Chest x-ray (09/19) = "extensive bilateral pulmonary opacities are again seen, greater on the right and appearing mildly progressive since the comparative study from yesterday. The heart is moderately enlarged. Right-sided PICC line has tip in the SVC." - Chest x-ray (09/20) = "similar widespread airspace disease which may reflect multifocal pneumonia, edema, and/or ARDS." - Management plan: - Consulted Pulmonary Medicine - recommendations appreciated - Consulted Respiratory Therapy - Supplemental oxygen to maintain SpO2 > 92% - Continue levofloxacin - Encouraged incentive spirometry # Alcoholic Cirrhosis complicated by Portal Hypertension # Cholelithiasis - Abdominal ultrasound = "cholelithiasis without evidence cholecystitis. Borderline splenomegaly. Mildly increased hepatic echotexture may indicate mild fatty infiltration. Mildly nodular hepatic contour indicating chronic disease." - MELD score = 14 - Continue lactulose - Continue dexmedetomidine - wean as tolerated # Hypertension - Hold home anti-hypertensives given soft blood pressures # Hyperlipidemia - Continue home atorvastatin Jeremy Beard M.D.
[2022-09-21] MEDS: FUROSEMIDE 40 MG/4 ML VIAL IV SCH (08:51)
[2022-09-21] MEDS: Levofloxacin 750mg IV 750 MG/150 ML BAG IV SCH (08:51)
[2022-09-21] MEDS: PANTOPRAZOLE 40 MG INJ IVP SCH ×2 (08:51→20:51)
[2022-09-21] MEDS: OXcarbazepine 150 MG TAB PO SCH ×2 (08:52→20:51)
[2022-09-21] MEDS: lamoTRIgine 100 MG TAB PO SCH ×2 (08:52→20:50)
[2022-09-21] MEDS: LACTULOSE 20 GM/30 ML UCUP PO SCH ×2 (08:52→20:50)
[2022-09-21] MEDS: MUPIROCIN 2% OINT 22GM TUBE TOP SCH ×2 (08:52→21:09)
[2022-09-21] MEDS: LORazepam 2 MG/ML VIAL IV PRN ×3 (09:51→20:51)
--- NOTE | 2022-09-21 12:12 | P.PN ---
Subjective Date of Service: 09/21/22 Chief Complaint: Respiratory failure No significant change patient is on 80% FiO2 currently on Lasix agitated dexmedetomidine drip Review of Systems is unable to be obtained Physical Examination - Vital Signs Temperature: 97.0 F Blood Pressure: 130/64 Pulse: 68 Respirations: 17 Pulse Ox (%): 96 - Physical Exam General: Delirious Respiratory: Diminished Cardiovascular: No edema, Regular rate/rhythm, Normal S1 S2 - Studies Medications List Reviewed: Yes Assessment And Plan - Current Problems (Diagnosis) (1) Respiratory failure Current Visit: Yes Status: Acute Plan: Admitted with respiratory failure chest x-ray still shows widespread bilateral airspace disease White count is declining no evidence of DVT patient is on TPN use a dose of IV Solu-Medrol prognosis poor on 80% FiO2 procalcitonin level is declining Qualifiers: Chronicity: acute (2) Iron deficiency anemia Current Visit: Yes Status: Acute Plan: Hemoglobin stable no evidence of continuing blood loss Qualifiers: Iron deficiency anemia type: unspecified iron deficiency Qualified Code(s): D50.9 - Iron deficiency anemia, unspecified Physician Review: Patient Assessed, Agree with Above Assessment and Plan
[2022-09-21] MEDS: AA 5%/D20W/ELECTROLYTES-TPN 2,000 ML, Lipids 20% 250 ML with MULTIVITAMINS INJ 10 ML IV SCH ×3 (17:01)
[2022-09-21] MEDS: ATORVASTATIN 10 MG TAB PO SCH (20:51)
[2022-09-22] MEDS: LORazepam 2 MG/ML VIAL IV PRN ×7 (01:10→23:29)
[2022-09-22] MEDS: DEXMEDETOMIDINE HCL 1,000 MCG in NA CHLORIDE 0.9% 490 ML IV SCH ×2 (01:34→11:26)
[2022-09-22] MEDS: ALBUTEROL 2.5 MG/3 ML NEB SOL NEB SCH ×4 (02:00→19:35)
[2022-09-22] MEDS: IPRATROPIUM BROM 0.5MG/2.5ML NEB SCH ×4 (02:00→19:35)
[2022-09-22] MEDS: METHYLPREDNISOLONE 40 MG INJ IV SCH ×2 (02:56→13:52)
[2022-09-22 05:08] LABS: Absolute Lymphocytes (CBC) 0.6 K/uL (0.7-4.9); Hematocrit 30.5 % (36.0-45.0); Lymphocytes % 3.5 % (15.3-44.8); MCV 81.5 fL (80-100); RBC Red Blood Cell Count 3.75 M/uL (3.86-4.86)
[2022-09-22 05:18] LABS: Potassium 3.9 mmol/L (3.5-5.1)
[2022-09-22] MEDS: INSULIN -REGULAR HUMAN 50 UNIT/0.5 ML ML SQ SCH ×4 (07:12→16:51)
[2022-09-22] MEDS: PANTOPRAZOLE 40 MG INJ IVP SCH ×2 (07:33→21:00)
[2022-09-22] MEDS: FUROSEMIDE 40 MG/4 ML VIAL IV SCH (07:33)
[2022-09-22] MEDS: Levofloxacin 750mg IV 750 MG/150 ML BAG IV SCH (07:34)
[2022-09-22] MEDS: MUPIROCIN 2% OINT 22GM TUBE TOP SCH ×2 (09:00→20:20)
[2022-09-22] MEDS: LACTULOSE 20 GM/30 ML UCUP PO SCH ×2 (09:00→20:21)
[2022-09-22] MEDS: lamoTRIgine 100 MG TAB PO SCH ×2 (09:00→20:21)
[2022-09-22] MEDS: OXcarbazepine 150 MG TAB PO SCH ×2 (09:00→21:00)
--- NOTE | 2022-09-22 09:37 | RAD REPORT ---
EXAM DESCRIPTION: RAD - Chest Single View - 09/22/2022 9:27 am CLINICAL HISTORY: Resp distress Chest pain. COMPARISON: Chest Single View dated 09/20/2022; Chest Single View dated 09/19/2022; Chest Single View dated 09/18/2022; Chest Single View dated 09/17/2022 FINDINGS: Portable technique limits examination quality. Extensive bilateral pulmonary opacities are present slightly progressive since 09/20/2022. Cardiac si ze is likely prominent. Right PICC line unchanged in position.
--- NOTE | 2022-09-22 13:00 | P.PN ---
Subjective Date of Service: 09/22/22 Chief Complaint: Respiratory failure No acute events overnight. This morning, she was slightly agitated pulling at her BiPAP. She remains BiPAP-dependent - FiO2 was weaned from 80 to 75 %. Mental status is waxing and waning. Review of Systems 10-point ROS is otherwise unremarkable Respiratory: Cough, Shortness of Breath Neurological: Confusion Physical Examination - Vital Signs Temperature: 97.4 F Blood Pressure: 130/72 Pulse: 68 Respirations: 20 Pulse Ox (%): 99 - Studies Medications List Reviewed: Yes Assessment And Plan - Plan - Physical Exam General: Alert, In no apparent distress, Oriented x3 HEENT: Atraumatic, Sclerae nonicteric Neck: JVD not distended Respiratory: Diminished, Crackles/rales (bibasilar), Rhonchi/rales Cardiovascular: No edema, Regular rate/rhythm, No murmurs Gastrointestinal: Normal bowel sounds, Soft, Non-distended, No tenderness Musculoskeletal: No clubbing Integumentary: No rashes Neurological: Normal speech, Normal affect # Suspected Septic Shock likely secondary to Multifocal Pneumonia - POA # Thrombocytopenia suspect secondary to Sepsis She met sepsis criteria based on HR > 90 bpm, RR > 20 breaths/min, and WBC > 12,000, and the suspected source is pneumonia. Severe sepsis is suspected due to concern for tissue hypoperfusion/organ dysfunction based on acute respiratory failure requiring BiPAP and lactic acid > 2 mmol/L. Septic shock is suspected due to initial lactate > 4 mmol/L. - Sepsis order set was initiated - Initial Lactate was 5.4 -> 2.9 - Blood cultures drawn before antibiotics were given - Broad spectrum antibiotics started: Levofloxacin - In regards to fluids: - 30 mL/kg of IV fluids was not administered given SBP > 90 and concern for volume overload - Sepsis reassessment completed by Cristin Dallas PA-C on 09/14/2022 @ 05:34 AM. # Acute on Chronic Decompensated Diastolic Congestive Heart Failure with Preserved Ejection Fraction - Consulted Cardiology - recommendations appreciated - Transthoracic echocardiogram = "1. normal left ventricular ejection fraction 55-60% with normal wall motion 2. moderate diastolic dysfunction 3. left atrial enlargement 4. moderate mitral regurgitation 5. mild tricuspid regurgitation" - Diuresis per Cardiology - Daily weights - Strict I/O - Cardiac diet, 1.5 L fluid restriction, 2 g Na restriction # Acute Hypoxemic Respiratory Failure - likely secondary to above - with concern for progression into Acute Respiratory Distress Syndrome (ARDS) - Evaluation thus far: - D-Dimer = 64,709 - CT chest angiogram ordered, but unable to be obtained due to her hemodynamic instability. Discussed with Dr. Darden (Pulmonology), he believes that her d-dimer is elevated due to ARDS. He recommended against systemic anticoagulation given her thrombocytopenia. Will continue to monitor closely. - Procalcitonin = 0.31 -> 0.24 -> 0.12 - ABG = pH 7.37, PCO2 38.4, PO2 56.1 - Chest x-ray (09/13) = "extensive bilateral pulmonary opacities are present, greater on the right. This may represent bilateral pneumonia or pulmonary edema. The heart is mildly enlarged in size. No displaced fractures." - CT chest (09/13) = " 1. Extensive bilateral pulmonary infiltrates. 2. Findings suggestive of hepatic cirrhosis and sequela of portal hypertension. 3. Other findings as above." - Chest x-ray (09/19) = "extensive bilateral pulmonary opacities are again seen, greater on the right and appearing mildly progressive since the comparative study from yesterday. The heart is moderately enlarged. Right-sided PICC line has tip in the SVC." - Chest x-ray (09/20) = "similar widespread airspace disease which may reflect multifocal pneumonia, edema, and/or ARDS." - Chest x-ray (09/22) = pending - Management plan: - Consulted Pulmonary Medicine and spoke with Dr. Darden - recommendations appreciated - Consulted Respiratory Therapy - Supplemental oxygen to maintain SpO2 > 92% - Continue levofloxacin - Encouraged incentive spirometry # Alcoholic Cirrhosis complicated by Portal Hypertension # Cholelithiasis - Abdominal ultrasound = "cholelithiasis without evidence cholecystitis. Borderline splenomegaly. Mildly increased hepatic echotexture may indicate mild fatty infiltration. Mildly nodular hepatic contour indicating chronic disease." - MELD score = 14 - Continue lactulose - Continue dexmedetomidine - wean as tolerated # Hypertension - Hold home anti-hypertensives given soft blood pressures # Hyperlipidemia - Continue home atorvastatin Jeremy Beard M.D.
[2022-09-22] MEDS: AA 5%/D20W/ELECTROLYTES-TPN 2,000 ML IV SCH (17:22)
[2022-09-22] MEDS: MORPHINE 2 MG/ML SYR IV PRN (19:29)
[2022-09-22] MEDS: ATORVASTATIN 10 MG TAB PO SCH (20:21)
[2022-09-22] MEDS ORDERED: RSI MEDICATION KIT IV ONE (20:42)
[2022-09-22] MEDS: propofoL 1,000 MG/100 ML VIAL IV SCH (21:14)
[2022-09-22] MEDS: propofoL 1,000 MG/100 ML VIAL IV ONE ×2 (21:16)
--- NOTE | 2022-09-22 21:21 | RAD REPORT ---
EXAM DESCRIPTION: Delta Single View09/22/2022 9:14 pm CLINICAL HISTORY: Device placement endotracheal tube placement IMPRESSION: An endotracheal tube has been inserted with its tip 1.5 centimeters above the demi and overlying the level of the aortic arch. . A nasogastric tube has been placed 8 centimeters into the stomach
--- NOTE | 2022-09-22 22:47 | P.PN ---
Date of Service: 09/22/22 I was called by nursing staff notified that patient was agitated and desaturating on BiPAP despite anxiolytics with sats in the 70s to 80s. Case was discussed with hospitalist attending as well as pulmonology and the recommendation was made the patient should be intubated given her respiratory failure as well as for airway protection. Respiratory was paged and GlideScope was brought into room in preparation, RSI was performed with succinylcholine, etomidate. Patient was intubated with first-pass success 7.5 ET tube, saturations quickly improved into the 90s. Patient was placed on propofol for sedation. NGT inserted. Continue with ICU level of care.
[2022-09-22 23:05] LABS: Arterial Blood Carboxyhemoglob 1.7 % (0-1.5); Blood Gas Oxyhemoglobin 89.6 % (94-97); Blood O2 Saturation 92.1 % (92-98.5)
[2022-09-23] MEDS: METHYLPREDNISOLONE 40 MG INJ IV SCH ×2 (01:00→12:43)
[2022-09-23] MEDS: ALBUTEROL 2.5 MG/3 ML NEB SOL NEB SCH ×4 (01:00→20:10)
[2022-09-23] MEDS: IPRATROPIUM BROM 0.5MG/2.5ML NEB SCH ×4 (01:00→20:10)
[2022-09-23] MEDS: MORPHINE 2 MG/ML SYR IV PRN ×3 (01:58→12:52)
[2022-09-23] MEDS: LORazepam 2 MG/ML VIAL IV PRN ×6 (04:14→20:39)
[2022-09-23 05:12] LABS: Absolute Lymphocytes (CBC) 0.8 K/uL (0.7-4.9); Hematocrit 27.9 % (36.0-45.0); Lymphocytes % 4.9 % (15.3-44.8); MCV 82.4 fL (80-100); MPV 8.6 fL (7.6-11.3); RBC Red Blood Cell Count 3.39 M/uL (3.86-4.86)
[2022-09-23 05:24] LABS: Potassium 4.2 mmol/L (3.5-5.1)
[2022-09-23] MEDS: INSULIN -REGULAR HUMAN 50 UNIT/0.5 ML ML SQ SCH ×4 (06:00→18:00)
[2022-09-23] MEDS: PANTOPRAZOLE 40 MG INJ IVP SCH ×2 (07:28→21:07)
[2022-09-23] MEDS: lamoTRIgine 100 MG TAB PO SCH ×2 (07:28→21:07)
[2022-09-23] MEDS: OXcarbazepine 150 MG TAB PO SCH ×2 (07:28→21:08)
[2022-09-23] MEDS: FUROSEMIDE 40 MG/4 ML VIAL IV SCH (07:28)
[2022-09-23] MEDS: Levofloxacin 750mg IV 750 MG/150 ML BAG IV SCH (07:29)
[2022-09-23] MEDS: LACTULOSE 20 GM/30 ML UCUP PO SCH ×2 (07:29→21:07)
[2022-09-23] MEDS ORDERED: FAMOTIDINE 20 MG/2 ML VIAL IV SCH (09:00)
[2022-09-23] MEDS ORDERED: ETOMIDATE 20 MG/10 ML VIAL IV ONE (09:06)
[2022-09-23] MEDS ORDERED: SUCCINYLCHOLINE 20 MG/ML (10 ML) IV ONE (09:06)
[2022-09-23] MEDS: propofoL 1,000 MG/100 ML VIAL IV SCH ×3 (09:36→22:31)
[2022-09-23] MEDS ORDERED: VITAL AF 1,000 ML BOT RTH SCH (13:00)
--- NOTE | 2022-09-23 14:03 | P.PN ---
Subjective Date of Service: 09/23/22 Chief Complaint: Respiratory failure No change in patient's condition she still has diffuse bilateral changes currently intubated Physical Examination - Vital Signs Temperature: 98.1 F Blood Pressure: 119/59 Pulse: 110 Respirations: 33 Pulse Ox (%): 96 - Studies Medications List Reviewed: Yes Assessment And Plan - Current Problems (Diagnosis) (1) Respiratory failure Current Visit: Yes Status: Acute Plan: Admitted with respiratory failure chest x-ray still shows widespread bilateral airspace disease White count is declining no evidence of DVT patient is on TPN use a dose of IV Solu-Medrol prognosis poor on 80% FiO2 procalcitonin level is declining Qualifiers: Chronicity: acute (2) Iron deficiency anemia Current Visit: Yes Status: Acute Plan: Hemoglobin stable no evidence of continuing blood loss Qualifiers: Iron deficiency anemia type: unspecified iron deficiency Qualified Code(s): D50.9 - Iron deficiency anemia, unspecified Physician Review: Patient Assessed, Agree with Above Assessment and Plan
--- NOTE | 2022-09-23 14:08 | P.PN ---
Subjective Date of Service: 09/23/22 Chief Complaint: Respiratory failure No change in patient's condition she still has diffuse bilateral changes currently intubated/very agitated hypoxic and stable currently saturations Review of Systems is unable to be obtained Physical Examination - Vital Signs Temperature: 98.1 F Blood Pressure: 119/59 Pulse: 110 Respirations: 33 Pulse Ox (%): 96 - Physical Exam General: Unresponsive Respiratory: Clear to auscultation bilaterally, Diminished Cardiovascular: No edema, Normal S1 S2 - Studies Medications List Reviewed: Yes Assessment And Plan - Current Problems (Diagnosis) (1) Respiratory failure Current Visit: Yes Status: Acute Plan: Respiratory failure diffuse bilateral groundglass changes patient currently on ventilator 7200% FiO2 with 7 of PEEP stable for bronchoscopy HIV test is ordered we will send off sputum for patient has a normal echocardiogram is on IV Lasix Qualifiers: Chronicity: acute (2) Iron deficiency anemia Current Visit: Yes Status: Acute Plan: Hemoglobin stable no evidence of continuing blood loss Qualifiers: Iron deficiency anemia type: unspecified iron deficiency Qualified Code(s): D50.9 - Iron deficiency anemia, unspecified Physician Review: Patient Assessed, Agree with Above Assessment and Plan
[2022-09-23] MEDS: MIDAZOLAM HCL 2 MG/2 ML INJ IV PRN (14:33)
[2022-09-23] MEDS: FENTANYL CITR 100 MCG/2 ML IV PRN (14:54)
[2022-09-23] MEDS: AA 5%/D20W/ELECTROLYTES-TPN 2,000 ML, Lipids 20% 250 ML with MULTIVITAMINS INJ 10 ML IV SCH ×3 (16:16)
[2022-09-23] MEDS ORDERED: CISATRACURIUM INJECTION 2 MG/ML (10 ML Vial) IV PRN (17:33)
[2022-09-23] MEDS: MUPIROCIN 2% OINT 22GM TUBE TOP SCH ×2 (18:19→21:09)
[2022-09-24] MEDS: METHYLPREDNISOLONE 40 MG INJ IV SCH ×2 (00:24→12:14)
[2022-09-24] MEDS: IPRATROPIUM BROM 0.5MG/2.5ML NEB SCH ×4 (02:40→20:00)
[2022-09-24] MEDS: ALBUTEROL 2.5 MG/3 ML NEB SOL NEB SCH ×4 (02:40→20:00)
[2022-09-24] MEDS: propofoL 1,000 MG/100 ML VIAL IV SCH ×4 (03:37→20:39)
[2022-09-24] MEDS: LORazepam 2 MG/ML VIAL IV PRN (04:08)
[2022-09-24] MEDS: INSULIN -REGULAR HUMAN 50 UNIT/0.5 ML ML SQ SCH ×4 (05:26→16:50)
--- NOTE | 2022-09-24 07:50 | RAD REPORT ---
EXAM DESCRIPTION: RAD - Chest Single View - 09/24/2022 4:45 am CLINICAL HISTORY: intubated/ARDS COMPARISON: Chest Single View dated 09/22/2022; Chest Single View dated 09/22/2022; Chest Single View dated 09/20/2022; Chest Single View dated 09/19/2022 FINDINGS: Lines: Endotracheal tube is in trachea at the level of the demi, slightly advanced from yesterday. PICC tip overlies the distal SVC. NG tube tip overlies the proximal stomach. . Lungs: Severe widespread interstitial and airspace opacities bilaterally . Pleural: No significant pleural effusions or pneumothorax. Cardiac: Similar size and configuration. Mediastinum: Within normal limits. Bones: No acute fractures. Other: None IMPRESSION: 1. The endotracheal tube is at the level of the demi and slightly advanced from yester day. Recommend retracting by 2 cm for more optimal positioning. 2. Similar widespread interstitial and airspace disease which may represent edema, pneumonia, and/or ARDS .
[2022-09-24] MEDS: Levofloxacin 750mg IV 750 MG/150 ML BAG IV SCH (08:02)
[2022-09-24] MEDS: MUPIROCIN 2% OINT 22GM TUBE TOP SCH ×2 (08:03→20:53)
[2022-09-24] MEDS: lamoTRIgine 100 MG TAB PO SCH (08:04)
[2022-09-24] MEDS: FUROSEMIDE 40 MG/4 ML VIAL IV SCH (08:04)
[2022-09-24] MEDS: LACTULOSE 20 GM/30 ML UCUP PO SCH ×2 (08:04→20:52)
[2022-09-24] MEDS: PANTOPRAZOLE 40 MG INJ IVP SCH ×2 (08:05→20:51)
[2022-09-24] MEDS: OXcarbazepine 150 MG TAB PO SCH (08:05)
[2022-09-24] MEDS: MIDAZOLAM HCL 2 MG/2 ML INJ IV PRN (09:33)
--- NOTE | 2022-09-24 10:25 | P.PN ---
Subjective Date of Service: 09/24/22 Chief Complaint: Respiratory failure No change in patient's condition she is on high doses of propofol still continues to remain agitated Review of Systems is unable to be obtained Physical Examination - Vital Signs Temperature: 97.7 F Blood Pressure: 137/58 Pulse: 106 Respirations: 25 Pulse Ox (%): 91 - Physical Exam General: Unresponsive Respiratory: Clear to auscultation bilaterally, Crackles/rales Cardiovascular: No edema, Regular rate/rhythm, Normal S1 S2 Gastrointestinal: Normal bowel sounds, Soft and benign - Studies Medications List Reviewed: Yes Assessment And Plan - Current Problems (Diagnosis) (1) Respiratory failure Current Visit: Yes Status: Acute Plan: Respiratory failure most likely ARDS etiology uncertain plan to try and do a bronchoscopy on Monday to do a BAL we will discuss with family member White count is declining no change in present treatment continue with the steroids IV pantoprazole sputum has been accepted for culture we will recheck lab work beta glucan has also been ordered blood pressure stable chest x-ray looks little better no apparent risk factors for Pneumocystis carinii will however empirically start on Bactrim beta D13 glycan ordered no apparent risk factors for pneumocystis Qualifiers: Chronicity: acute (2) Iron deficiency anemia Current Visit: Yes Status: Acute Plan: Hemoglobin stable no evidence of continuing blood loss Qualifiers: Iron deficiency anemia type: unspecified iron deficiency Qualified Code(s): D50.9 - Iron deficiency anemia, unspecified (3) Thrombocytopenia Current Visit: Yes Status: Acute Plan: May be from underlying sepsis or chronic liver disease Physician Review: Patient Assessed, Agree with Above Assessment and Plan
[2022-09-24 12:10] LABS: Hematocrit 28.8 % (36.0-45.0); Lymphocytes % 4.2 % (15.3-44.8); MCV 82.7 fL (80-100); MPV 8.5 fL (7.6-11.3); RBC Red Blood Cell Count 3.48 M/uL (3.86-4.86)
[2022-09-24] MEDS: SMZ./TMP. 800/160 MG TABLET PO SCH ×2 (12:12→20:51)
[2022-09-24 12:40] LABS: Anisocytosis 2+; Polychromasia SLIGHT; Target Cells 1+
[2022-09-24 12:42] LABS: Blood Morphology Comment NOTED (NOT SEEN); Platelet Estimate DECR
[2022-09-25] MEDS: METHYLPREDNISOLONE 40 MG INJ IV SCH ×2 (00:09→12:02)
[2022-09-25] MEDS: ALBUTEROL 2.5 MG/3 ML NEB SOL NEB SCH ×4 (01:55→20:00)
[2022-09-25] MEDS: IPRATROPIUM BROM 0.5MG/2.5ML NEB SCH ×4 (01:55→20:00)
[2022-09-25] MEDS: propofoL 1,000 MG/100 ML VIAL IV SCH ×3 (01:58→15:22)
[2022-09-25 02:51] LABS: Albumin 2.4 g/dL (3.4-5.0); Bilirubin Total 1.9 mg/dL (0.2-1.0); Potassium 5.3 mmol/L (3.5-5.1); Protein, Total 5.4 g/dL (6.4-8.2)
[2022-09-25] MEDS: INSULIN -REGULAR HUMAN 50 UNIT/0.5 ML ML SQ SCH ×4 (06:00→18:00)
[2022-09-25] MEDS: LORazepam 2 MG/ML VIAL IV PRN ×2 (07:53→14:00)
[2022-09-25] MEDS: LACTULOSE 20 GM/30 ML UCUP PO SCH ×2 (07:57→08:32)
[2022-09-25] MEDS: SMZ./TMP. 800/160 MG TABLET PO SCH ×2 (07:58→20:38)
[2022-09-25] MEDS: Levofloxacin 750mg IV 750 MG/150 ML BAG IV SCH (07:58)
[2022-09-25] MEDS: PANTOPRAZOLE 40 MG INJ IVP SCH (07:58)
[2022-09-25] MEDS: MUPIROCIN 2% OINT 22GM TUBE TOP SCH ×2 (08:00→20:39)
[2022-09-25] MEDS: FUROSEMIDE 40 MG/4 ML VIAL IV SCH (08:00)
--- NOTE | 2022-09-25 09:16 | RAD REPORT ---
EXAM DESCRIPTION: [facility] Single View09/25/2022 6:37 am CLINICAL HISTORY: ARDS COMPARISON: September 19, 2022 FINDINGS: Endotracheal tube has its tip 1.5 centimeters above the demi. Nasogastric tube within the stomach. Mild worsening extensive bilateral alveolar opacities. Heart remains enlarged. Pneumomediastinum has developed IMPRESSION: Pneumomediastinum Mild worsening extensive bilateral alveolar opacities which may indicate ARDS
[2022-09-25 10:24] LABS: Absolute Lymphocytes (CBC) 0.9 K/uL (0.7-4.9); Hematocrit 30.9 % (36.0-45.0); MCV 82.6 fL (80-100); MPV 7.9 fL (7.6-11.3); RBC Red Blood Cell Count 3.74 M/uL (3.86-4.86)
--- NOTE | 2022-09-25 10:38 | P.PN ---
Subjective Date of Service: 09/25/22 Chief Complaint: Respiratory failure Patient is still on propofol oxygen requirements declining chest x-ray shows interstitial changes Review of Systems is unable to be obtained Physical Examination - Vital Signs Temperature: 97.1 F Blood Pressure: 108/57 Pulse: 90 Respirations: 19 Pulse Ox (%): 90 - Physical Exam General: Unresponsive Respiratory: Crackles/rales Cardiovascular: No edema, Regular rate/rhythm, Normal S1 S2 - Studies Medications List Reviewed: Yes Assessment And Plan - Current Problems (Diagnosis) (1) Respiratory failure Current Visit: Yes Status: Acute Plan: Respiratory failure White count is now mildly elevated changed to cefepime urine cultures are pending hold IV Lasix for now BUN is increasing potassium is borderline abnormal and is on prophylactic Bactrim serum beta 13 glucan is pending vital signs are stable advance tube feeds and TPN weaned off endotracheal tube satisfactory HIV test is also pending patient has pneumomediastinum will decrease PEEP try and consult ENT on-call for a tracheost elsa Qualifiers: Chronicity: acute (2) Thrombocytopenia Current Visit: Yes Status: Acute Plan: May be from underlying sepsis or chronic liver disease improving (3) Pneumomediastinum Current Visit: Yes Status: Acute Plan: Patient has pneumomediastinum continue to follow reduce PEEP Physician Review: Patient Assessed, Agree with Above Assessment and Plan
[2022-09-25] MEDS: CEFEPIME 1 GM in NA CHLORIDE 0.9% 100 ML IV SCH ×2 (11:49→20:39)
--- NOTE | 2022-09-25 14:15 | RAD REPORT ---
EXAM DESCRIPTION: [place] Single View09/25/2022 2:03 pm CLINICAL HISTORY: Pneumomediastinum COMPARISON: September 25, 2022 FINDINGS: Endotracheal tube has its tip 1 centimeter above the demi. No significant change in diffuse bilateral pulmonary opacities Heart remains enlarged Nasogastric tube in place Pneumomediastinum unchanged. Lower neck is included in the field of view demonstrating subcutaneous emphysema IMPRESSION: Pneumomediastinum unchanged Endotracheal tube has its tip 1 centimeter above the demi. It should be retracted 1.5 centimeters
[2022-09-25] MEDS: MIDAZOLAM HCL 2 MG/2 ML INJ IV PRN (15:35)
[2022-09-26] MEDS: METHYLPREDNISOLONE 40 MG INJ IV SCH ×2 (00:35→13:28)
[2022-09-26] MEDS: LORazepam 2 MG/ML VIAL IV PRN ×3 (00:36→21:06)
[2022-09-26] MEDS: IPRATROPIUM BROM 0.5MG/2.5ML NEB SCH ×4 (01:23→19:55)
[2022-09-26] MEDS: ALBUTEROL 2.5 MG/3 ML NEB SOL NEB SCH ×4 (01:23→19:55)
[2022-09-26 05:11] LABS: Hematocrit 27.2 % (36.0-45.0); MCV 82.7 fL (80-100); MPV 8.7 fL (7.6-11.3); RBC Red Blood Cell Count 3.29 M/uL (3.86-4.86)
[2022-09-26] MEDS: propofoL 1,000 MG/100 ML VIAL IV SCH ×3 (05:14→17:37)
[2022-09-26 05:34] LABS: Albumin 2.3 g/dL (3.4-5.0); Bilirubin Total 1.8 mg/dL (0.2-1.0); Potassium 4.9 mmol/L (3.5-5.1); Protein, Total 5.2 g/dL (6.4-8.2)
[2022-09-26] MEDS: INSULIN -REGULAR HUMAN 50 UNIT/0.5 ML ML SQ SCH ×4 (05:38→18:00)
--- NOTE | 2022-09-26 07:38 | RAD REPORT ---
EXAM DESCRIPTION: [facility] Single View09/26/2022 5:09 am CLINICAL HISTORY: Shortness of breath COMPARISON: September 25, 2022 FINDINGS: Endotracheal tube has its tip several centimeters above the demi. It overlies the aortic arch. PICC line in place. No significant change in the bilateral pulmonary opacities and cardiomegaly. Pneumomediastinum and subcutaneous emphysema also stable. NG tube in place. IMPRESSION: No change in the diffuse bilateral pulmonary opacities/pneumomediastinum/subcutaneous em physema
[2022-09-26] MEDS: LACTULOSE 20 GM/30 ML UCUP PO SCH (07:48)
[2022-09-26] MEDS: CEFEPIME 1 GM in NA CHLORIDE 0.9% 100 ML IV SCH ×2 (07:49→21:05)
[2022-09-26] MEDS: MUPIROCIN 2% OINT 22GM TUBE TOP SCH ×2 (07:50→21:00)
[2022-09-26] MEDS ORDERED: CEFEPIME 1 GM/VIAL ONE (07:52)
[2022-09-26] MEDS ORDERED: NA CHLORIDE 0.9% 100 ML ONE (08:05)
[2022-09-26] MEDS: SMZ./TMP. 800/160 MG TABLET PO SCH ×2 (08:38→21:06)
[2022-09-26 11:31] LABS: HIV AG/AB 4TH GEN Nonreactive (Nonreactive)
--- NOTE | 2022-09-26 14:06 | P.PN ---
Date of Service: 09/26/22 ENT Consultation Please see dictated H&P. Impression: 1. Acute respiratory failure-- has failed BiPaP and is approximately 4 days s/p ET intubation. Plan: 1. Will set up patient for tracheostomy 09/29/22 to follow my scheduled cases. 2. If applies, NPO after 2am on 09/29/22. Thank you Dr. Darden, for this interesting consultation.
[2022-09-26] MEDS: FENTANYL CITR 100 MCG/2 ML IV PRN (15:45)
--- NOTE | 2022-09-26 22:17 | P.PN ---
Date of Service: 09/26/22 Subjective Patient is a 57-year-old female who came into the hospital with shortness of breath. Patient was found to have multifocal pneumonia. Patient also has a history of cirrhosis with mild portal hypertension. Echocardiogram also revealed diastolic heart failure with mitral regurgitation. Patient was treated with IV antibiotic therapy. She was also gently diuresed. Patient was not really making a lot of improvement and we have had a hard time weaning her off the BiPAP. She was very agitated yesterday so we went ahead and started Precedex. We did gently diurese her yesterday and she did put out about 3 L over 24 hours. Her respiratory status is very slow to improve. She is also going through a divorce and her mother is her medical power of business attorney. At this time we will continue with antibiotic therapy along with nebs and low-dose steroids. She has thrombocytopenia and anemia and will monitoring her platelet and hemoglobin count closely. Patient required intubation 3-4 days ago. Patient on ventilator. Chest x-ray does reveal pneumomediastinum. Continue monitoring very closely. Physical Examination - Vital Signs reviewed - Physical Exam General: ET tube in place Respiratory: Diminished breath sounds bilaterally with basilar crackles Cardiovascular: Regular rate/rhythm, Normal S1 S2 Gastrointestinal: NT/ND Normal bowel sounds Neurological: No focal deficits Extremities: No clubbing/cyanosis/no edema Assessment & Plan - Problems (Diagnosis) (1) Multifocal pneumonia Current Visit: Yes Status: Acute Qualifiers: Pneumonia type: due to unspecified organism Laterality: bilateral Lung location: lower lobe of lung Qualified Code(s): J18.9 - Pneumonia, unspecified organism (2) Thrombocytopenia Current Visit: Yes Status: Acute (3) Anemia associated with acute blood loss Current Visit: Yes Status: Acute (4) Sepsis Current Visit: Yes Status: Acute Qualifiers: Sepsis type: sepsis due to unspecified organism Sepsis acute organ dysfunction status: with acute organ dysfunction Severe sepsis acute organ dysfunction type: acute respiratory failure Acute respiratory failure type: with hypoxia Severe sepsis shock status: with septic shock Qualified Code(s): A41.9 - Sepsis, unspecified organism; R65.21 - Severe sepsis with septic shock; J96.01 - Acute respiratory failure with hypoxia (5) Cirrhosis with portal hypertension Current Visit: Yes Status: Chronic Qualifiers: Hepatic cirrhosis type: alcoholic cirrhosis Ascites presence: without ascites Qualified Code(s): K70.30 - Alcoholic cirrhosis of liver without ascites (6) Diastolic heart failure Current Visit: Yes Status: Chronic - Plan Continue with plan of care as mentioned below: 1. Continue with IV antibiotics; patient currently on Levaquin. Remains hypoxic. 2. Continue vent support 3. Chest x-ray with multifocal pneumonia; patient's x-ray reveals pneumomediastinum 4. continue monitoring CBC; Patient also with a history of cirrhosis; may resume low-dose anticoagulation for DVT prophylaxis 5. Appreciate pulmonary consultation 6. Continue with nebs; steroids twice daily 7. PICC line placed. Cont Precedex; 8. continue tube feedings 9. Repeat labs 10. GI and DVT prophylaxis
[2022-09-27] MEDS: METHYLPREDNISOLONE 40 MG INJ IV SCH ×2 (00:59→13:04)
[2022-09-27] MEDS: ALBUTEROL 2.5 MG/3 ML NEB SOL NEB SCH ×4 (01:45→19:45)
[2022-09-27] MEDS: IPRATROPIUM BROM 0.5MG/2.5ML NEB SCH ×4 (01:45→19:45)
[2022-09-27] MEDS: propofoL 1,000 MG/100 ML VIAL IV SCH ×2 (02:56→13:12)
[2022-09-27 05:10] LABS: Absolute Lymphocytes (CBC) 0.8 K/uL (0.7-4.9); Hematocrit 29.1 % (36.0-45.0); Lymphocytes % 3.8 % (15.3-44.8); MCV 83.8 fL (80-100); MPV 8.3 fL (7.6-11.3); RBC Red Blood Cell Count 3.48 M/uL (3.86-4.86)
[2022-09-27 05:30] LABS: Phosphorus 3.4 mg/dL (2.5-4.9); Potassium 4.6 mmol/L (3.5-5.1)
[2022-09-27 05:33] LABS: Anisocytosis 3+; Basophilic Stippling 1+; Blood Morphology Comment NOTED (NOT SEEN); Platelet Estimate DECR; Polychromasia 2+
[2022-09-27] MEDS: INSULIN -REGULAR HUMAN 50 UNIT/0.5 ML ML SQ SCH ×4 (06:00→17:01)
[2022-09-27] MEDS: MUPIROCIN 2% OINT 22GM TUBE TOP SCH ×2 (07:36→20:43)
[2022-09-27] MEDS: CEFEPIME 1 GM in NA CHLORIDE 0.9% 100 ML IV SCH ×2 (07:36→20:43)
[2022-09-27] MEDS: SMZ./TMP. 800/160 MG TABLET PO SCH ×2 (07:36→20:45)
[2022-09-27] MEDS: LACTULOSE 20 GM/30 ML UCUP PO SCH (07:36)
--- NOTE | 2022-09-27 08:53 | RAD REPORT ---
EXAM DESCRIPTION: RAD - Chest Single View - 09/27/2022 5:21 am CLINICAL HISTORY: intubated/ARDS Chest pain. COMPARISON: Chest Single View dated 09/26/2022; Chest Single View dated 09/25/2022; Chest Single View dated 09/25/2022; Chest Single View dated 09/24/2022 FINDINGS: Portable technique limits examination quality. Tip of the endotracheal tube is above the demi at the level of the aortic arch. Enteric tube is wel l positioned in the stomach. Right PICC line has tip in the SVC.There has been mild improvement in bi lateral pulmonary opacities since yesterday's study. The heart is mildly enlarged in size.
[2022-09-27] MEDS: LORazepam 2 MG/ML VIAL IV PRN ×2 (12:15→20:42)
--- NOTE | 2022-09-27 14:54 | P.PN ---
Date of Service: 09/27/22 Subjective Patient doing well on the ventilator. Awaiting for trach placement on . Will discuss with pulmonary regarding PEG tube placement as well. Physical Examination - Vital Signs reviewed - Physical Exam General: ET tube in place; NGT in place Respiratory: Diminished breath sounds but otherwise clear Cardiovascular: Regular rate/rhythm, Normal S1 S2 Gastrointestinal: NT/ND Normal bowel sounds Neurological: No focal deficits Extremities: No clubbing/cyanosis/no edema Assessment & Plan - Problems (Diagnosis) (1) Multifocal pneumonia Current Visit: Yes Status: Acute Pneumonia type: due to unspecified organism Laterality: bilateral Lung location: lower lobe of lung Qualified Code(s): J18.9 - Pneumonia, unspecified organism (2) Thrombocytopenia Current Visit: Yes Status: Acute (3) Anemia associated with acute blood loss Current Visit: Yes Status: Acute (4) Sepsis Current Visit: Yes Status: Acute Sepsis type: sepsis due to unspecified organism Sepsis acute organ dysfunction status: with acute organ dysfunction Severe sepsis acute organ dysfunction type: acute respiratory failure Acute respiratory failure type: with hypoxia Severe sepsis shock status: with septic shock Qualified Code(s): A41.9 - Sepsis, unspecified organism; R65.21 - Severe sepsis with septic shock; J96.01 - Acute respiratory failure with hypoxia (5) Cirrhosis with portal hypertension Current Visit: Yes Status: Chronic Hepatic cirrhosis type: alcoholic cirrhosis Ascites presence: without ascites Qualified Code(s): K70.30 - Alcoholic cirrhosis of liver without ascites (6) Diastolic heart failure Current Visit: Yes Status: Chronic - Plan Continue with plan of care as mentioned below: 1. Continue with IV antibiotics; patient currently on Levaquin. Remains hypoxic. 2. Continue vent support 3. Chest x-ray with multifocal pneumonia; patient's x-ray showed improvement 4. Continue monitoring CBC; patient also with a history of cirrhosis; may resume low-dose anticoagulation for DVT prophylaxis 5. Appreciate pulmonary consultation; 6. Continue with nebs; steroids twice daily 7. PICC line placed. Cont Precedex; 8. Continue tube feedings; may consider PEG tube 9. Repeat labs 10. Arrange for LTAC placement 11. GI and DVT prophylaxis
--- NOTE | 2022-09-27 15:47 | CON ---
Date of Consultation: 09/26/2022 Chief Complaint: Respiratory difficulty. History Of Present Illness: The patient is a 57-year-old female with past medical history of hyperte nsion, hyperlipidemia and asthma, who presented to the emergency room on approximately 09/14 and was subsequently admitted for acute pneumonia, sepsis, cirrhosis and portal hypertension as well as exace rbation of asthma and was placed on antibiotics and steroids as well as BiPAP, and the patient was no t improving on BiPAP and then was subsequently intubated. The patient has been intubated for approxi mately 4 days, but it appears that she is not improving and thus I was consulted for tracheostomy cj luation. Rest of history is obtained from the chart. Past Medical History: Hypertension, hyperlipidemia, asthma, alcoholic cirrhosis, portal hypertension , breast reduction. Social History: Nonsmoker and the patient stopped alcohol use approximately 1 year ago. Allergies: NO KNOWN DRUG ALLERGIES. Medications: Please refer to the medication chart and I do not see any medications that the patient was taking. Review of Systems: General: Weakness. Respiratory: Positive for shortness of breath, which has resulted in intubation. Physical Examination: Vital Signs: Currently stable. The patient is sedated on the vent. Neck: Supple. Trachea midline. The patient has excellent neck landmarks with a palpable thyroid ca rtilage and cricoid cartilage. I do not detect any edema or erythema of the neck. Diagnoses: Acute respiratory failure secondary to sepsis and pneumonia - she has failed both BiPAP a nd is currently on day 4 of endotracheal intubation. Recommendations: Our plan is to perform elective tracheostomy in 3 days or sooner if she decompensat es. KD/MODL Voice ID: [id number] Report ID: [id number]
[2022-09-28] MEDS: METHYLPREDNISOLONE 40 MG INJ IV SCH ×3 (00:27→23:40)
[2022-09-28] MEDS: propofoL 1,000 MG/100 ML VIAL IV SCH (01:24)
[2022-09-28] MEDS: LORazepam 2 MG/ML VIAL IV PRN ×4 (01:34→23:39)
[2022-09-28] MEDS: ALBUTEROL 2.5 MG/3 ML NEB SOL NEB SCH ×4 (02:05→19:45)
[2022-09-28] MEDS: IPRATROPIUM BROM 0.5MG/2.5ML NEB SCH ×4 (02:05→19:45)
[2022-09-28 05:13] LABS: Absolute Lymphocytes (CBC) 0.6 K/uL (0.7-4.9); Hematocrit 29.4 % (36.0-45.0); Lymphocytes % 3.4 % (15.3-44.8); MCV 85.1 fL (80-100); MPV 8.2 fL (7.6-11.3); RBC Red Blood Cell Count 3.46 M/uL (3.86-4.86)
[2022-09-28 05:16] LABS: Protime INR 1.55
[2022-09-28 05:27] LABS: Albumin 2.4 g/dL (3.4-5.0); Bilirubin Direct 1.1 mg/dL (0-0.2); Bilirubin Total 1.7 mg/dL (0.2-1.0); Magnesium 2.7 mg/dL (1.6-2.4); Phosphorus 2.7 mg/dL (2.5-4.9); Potassium 4.6 mmol/L (3.5-5.1); Protein, Total 5.5 g/dL (6.4-8.2)
[2022-09-28] MEDS: INSULIN -REGULAR HUMAN 50 UNIT/0.5 ML ML SQ SCH ×4 (05:35→18:00)
--- NOTE | 2022-09-28 07:52 | RAD REPORT ---
EXAM DESCRIPTION: RAD - Chest Single View - 09/28/2022 5:28 am CLINICAL HISTORY: pneumonia COMPARISON: Chest Single View dated 09/27/2022; Chest Single View dated 09/26/2022; Chest Single View dated 09/25/2022; Chest Single View dated 09/25/2022; Thorax W/ Con dated 09/13/2022 FINDINGS: Lines: Endotracheal tube is at the demi. It is angulated to the right. NG tube tip overl ies the stomach. Right subclavian approach PICC with tip overlying the SVC. Lungs: Widespread bilateral airspace disease . Pleural: No significant pleural effusions or pneumothorax. Cardiac: Cardiomegaly. Mediastinum: Within normal limits. Bones: No acute fractures. Other: Some residual subcutaneous emphysema noted in the base of the neck. . IMPRESSION: 1. Endotracheal tube deviates towards the right mainstem bronchus. Recommend retraction by 2 cm for more optimal positioning. 2. Aeration of the lungs is unchanged. Widespread pulmonary opacities likely reflecting edema, pneumo diandra, and/or ARDS.
[2022-09-28] MEDS: MUPIROCIN 2% OINT 22GM TUBE TOP SCH (07:58)
[2022-09-28] MEDS: LACTULOSE 20 GM/30 ML UCUP PO SCH (07:58)
[2022-09-28] MEDS: CEFEPIME 1 GM in NA CHLORIDE 0.9% 100 ML IV SCH ×2 (07:59→20:34)
[2022-09-28] MEDS: SMZ./TMP. 800/160 MG TABLET PO SCH ×2 (07:59→20:34)
[2022-09-28] MEDS: FENTANYL CITR 100 MCG/2 ML IV PRN (13:36)
--- NOTE | 2022-09-28 14:33 | P.PN ---
Date of Service: 09/28/22 Subjective Pt's oxygenation improving; plan for trach and PEG in AM Physical Examination - Vital Signs reviewed - Physical Exam General: ET tube in place; NGT in place Respiratory: Diminished breath sounds but otherwise clear Cardiovascular: Regular rate/rhythm, Normal S1 S2 Gastrointestinal: NT/ND Normal bowel sounds Neurological: No focal deficits Extremities: No clubbing/cyanosis/no edema Assessment & Plan - Problems (Diagnosis) (1) Multifocal pneumonia Current Visit: Yes Status: Acute Pneumonia type: due to unspecified organism Laterality: bilateral Lung location: lower lobe of lung Qualified Code(s): J18.9 - Pneumonia, unspecified organism (2) Thrombocytopenia Current Visit: Yes Status: Acute (3) Anemia associated with acute blood loss Current Visit: Yes Status: Acute (4) Sepsis Current Visit: Yes Status: Acute Sepsis type: sepsis due to unspecified organism Sepsis acute organ dysfunction status: with acute organ dysfunction Severe sepsis acute organ dysfunction type: acute respiratory failure Acute respiratory failure type: with hypoxia Severe sepsis shock status: with septic shock Qualified Code(s): A41.9 - Sepsis, unspecified organism; R65.21 - Severe sepsis with septic shock; J96.01 - Acute respiratory failure with hypoxia (5) Cirrhosis with portal hypertension Current Visit: Yes Status: Chronic Hepatic cirrhosis type: alcoholic cirrhosis Ascites presence: without ascites Qualified Code(s): K70.30 - Alcoholic cirrhosis of liver without ascites (6) Diastolic heart failure Current Visit: Yes Status: Chronic - Plan Continue with plan of care as mentioned below: 1. Continue with IV antibiotics; patient currently on Levaquin. Remains hypoxic. 2. Continue vent support 3. Chest x-ray with multifocal pneumonia; patient's chest x-ray showed improvement-oxygenation improved. 4. Continue monitoring CBC; patient also with a history of cirrhosis; may need to resume low-dose anticoagulation for DVT prophylaxis 5. Appreciate pulmonary consultation; weaning off the ventilator 6. Continue with nebs; weaning off the steroids 7. PICC line placed. weaning down propofol 8. Continue tube feedings; PEG tube pending 9. Repeat labs 10. Arrange for LTAC placement 11. GI and DVT prophylaxis
--- NOTE | 2022-09-28 17:19 | RAD REPORT ---
EXAM DESCRIPTION: RADChest Single View09/28/2022 4:23 pm CLINICAL HISTORY: eval ETT COMPARISON: Chest Single View dated 09/28/2022; Chest Single View dated 09/27/2022; Chest Single View dated 09/26/2022; Chest Single View dated 09/25/2022 TECHNIQUE: Portable AP view of the chest. FINDINGS: Right arm PICC and enteric tube are unchanged in position. Endotracheal tube has been retr acted and now terminates approximately 3.3 centimeter above the demi. Patchy bibasilar airspace opa cities, appear to be progressive in the left base, with overall progressive central interstitial prom inence/opacification. There may be a small left pleural effusion. No pneumothorax. Cardiac silhouette is again enlarged. IMPRESSION: Satisfactory endotracheal tube position as above. Progressive left basal patchy airspace opacities and interstitial prominence, concerning for pneumoni a, possibly with underlying pulmonary edema. Small left pleural effusion.
--- NOTE | 2022-09-28 18:20 | CON ---
Date of Consultation: 09/28/2022 Brief History Of Present Illness: The patient is a 57-year-old female with a past medical history of hypertension, hyperlipidemia, asthma and cirrhosis, who presented to the ER with respiratory distres s on 09/14/2022. She had a diagnosis of pneumonia, septic shock ultimately leading to intubation. S he has had significant deterioration and as such, she has now been receiving tube feeds and intubated for several days. The staff has requested placement of a tracheostomy by Dr. Green and a PEG tube by myself. Past medical history and information are all obtained from the chart as the patient is curr ently intubated and nonresponsive. Past Medical History: Hypertension, hyperlipidemia, asthma, alcoholic cirrhosis, portal hypertension . Past Surgical History: Breast reduction surgery. Social History: Negative for smoking and alcohol and recreational drug use. Review of Systems: Ten point review of systems unable to obtain. Physical Examination: General: At the time of my examination; the patient was intubated, sedated, nonresponsive. HEENT: Otherwise normocephalic. Her sclerae were anicteric. Mucous membranes are moist. Oropharyn x is clear. Neck: Supple without JVD. Chest: Normal expansion and excursion. Cardiovascular: Regular rate and rhythm. Pulmonary: Clear to auscultation bilaterally. Decreased breath sounds slightly on the right. Mecha nical ventilation is currently in place and functional. Abdomen: Soft, nontender, nondistended. No rebound. No guarding. No focal peritonitis. There jared ears to be a scar down below in a Ruel type orientation. Skin: Warm and dry. Laboratory Data: Revealed a white blood cell count of 20.10, hemoglobin 9.2, hematocrit 29.1, platel et count was 80. Sodium 142, potassium is 4.6, chloride 101, carbon dioxide is 36.6, BUN 57, creatin ine 0.9, glucose is 199, magnesium was 3.0. She had a chest x-ray performed on 09/28, which was offi cially read as endotracheal tube deviates towards the right mainstem bronchus, recommended retraction by 2 cm proximal positioning, aeration of lungs unchanged, widespread pulmonary opacities reflecting edema, pulmonary and ARDS. Assessment And Plan: This is a 57-year-old female, who presents with multiple medical problems as de scribed above and is in need of long-term nutrition and tracheostomy for ultimate LTAC consideration. 1.Continue medical management. 2.I have explained the risks, benefits, and alternatives of percutaneous endoscopic gastrostomy tube to the patient's mother, who is a power of banking attorney including, but not limited to bleeding, infectio n, damage to surrounding tissue, need for further operation and procedures, injury to intestines, per foration, need for emergency surgery. She agrees to proceed as indicated. 3.Recommend evaluation of endotracheal tube for optimal positioning. I have discussed with this [facility] staff to notify the shoes salesperson, Dr. Darden regarding this. Thank you for this interesting consult. YAHAIRA/MITCHEL Voice ID: [id number] Report ID: [id number]
[2022-09-29] MEDS: IPRATROPIUM BROM 0.5MG/2.5ML NEB SCH ×2 (01:20→07:35)
[2022-09-29] MEDS: ALBUTEROL 2.5 MG/3 ML NEB SOL NEB SCH ×2 (01:20→07:35)
[2022-09-29] MEDS: LORazepam 2 MG/ML VIAL IV PRN ×2 (02:00→04:40)
[2022-09-29] MEDS: FENTANYL CITR 100 MCG/2 ML IV PRN (05:30)
[2022-09-29 05:40] LABS: Absolute Lymphocytes (CBC) 0.6 K/uL (0.7-4.9); Hematocrit 29.6 % (36.0-45.0); Lymphocytes % 3.5 % (15.3-44.8); MCV 85.2 fL (80-100); RBC Red Blood Cell Count 3.47 M/uL (3.86-4.86)
[2022-09-29 05:58] LABS: Magnesium 2.4 mg/dL (1.6-2.4); Potassium 4.4 mmol/L (3.5-5.1)
[2022-09-29] MEDS: INSULIN -REGULAR HUMAN 50 UNIT/0.5 ML ML SQ SCH ×4 (06:00→18:00)
--- NOTE | 2022-09-29 07:54 | RAD REPORT ---
EXAM DESCRIPTION: [place] Single View09/29/2022 5:30 am CLINICAL HISTORY: Chest pain COMPARISON: September 28, 2021 FINDINGS: No significant change in the bilateral pulmonary opacities and cardiomegaly. PICC line, endotracheal and nasogastric tubes in good position Mild pneumomediastinum and subcutaneous emphysema partially resolved IMPRESSION: No significant change in the bilateral pulmonary opacities Mild pneumomediastinum and subcutaneous emphysema in the neck partially resolved
[2022-09-29] MEDS ORDERED: IPRATROPIUM BROM 0.5MG/2.5ML NEB PRN (08:13)
[2022-09-29] MEDS ORDERED: ALBUTEROL 2.5 MG/3 ML NEB SOL NEB PRN (08:13)
--- NOTE | 2022-09-29 08:13 | P.PN ---
Subjective Date of Service: 09/29/22 Chief Complaint: Respiratory failure Patient's condition is stable she is still remaining hypoxic requiring about 40 to 50% FiO2 and some sedation tolerating tube feeds scheduled for a trach today endotracheal tube was adjusted yesterday Review of Systems is unable to be obtained Physical Examination - Vital Signs Temperature: 97.7 F Blood Pressure: 132/63 Pulse: 86 Respirations: 20 Pulse Ox (%): 93 - Physical Exam General: Unresponsive Respiratory: Clear to auscultation bilaterally, Diminished Cardiovascular: No edema, Normal pulses - Studies Medications List Reviewed: Yes Assessment And Plan - Current Problems (Diagnosis) (1) Respiratory failure Current Visit: Yes Status: Acute Plan: Patient admitted with respiratory failure secondary to pneumonia to pneumonia improving White count is declining chest x-ray shows shows some improvement vital signs are stable will DC Bactrim and steroids beta glucan was negative also scheduled to have a PEG tube stable for transfer to an LTAC Qualifiers: Chronicity: acute (2) Thrombocytopenia Current Visit: Yes Status: Acute Plan: Chronic thrombocytopenia (3) Pneumomediastinum Current Visit: Yes Status: Acute Plan: Pneumomediastinum has resolved Physician Review: Patient Assessed, Agree with Above Assessment and Plan
[2022-09-29] MEDS: CEFEPIME 1 GM in NA CHLORIDE 0.9% 100 ML IV SCH ×2 (10:04→21:15)
[2022-09-29] MEDS ORDERED: NS 0.9% VIAL 20 ML ONE (10:22)
[2022-09-29] MEDS ORDERED: VECURONIUM 10 MG/VIAL IV ONE ×2 (10:22→11:29)
[2022-09-29] MEDS ORDERED: FENTANYL CITR 100 MCG/2 ML ONE (10:22)
[2022-09-29] MEDS ORDERED: MIDAZOLAM HCL 2 MG/2 ML INJ ONE (10:23)
[2022-09-29] MEDS ORDERED: NA CHLORIDE 0.9% 500 ML ONE ×2 (10:24→12:31)
[2022-09-29] MEDS ORDERED: propofoL 200 MG/20 ML VIAL IV ONE (10:27)
[2022-09-29] MEDS ORDERED: LIDOCAINE 1% W/EPI 1:100,000 10 ML VIAL ONE (11:29)
[2022-09-29] MEDS ORDERED: NS 0.9% VIAL 10 ML ONE (11:29)
--- NOTE | 2022-09-29 15:43 | RAD REPORT ---
EXAM DESCRIPTION: CT - Head Brain Wo Cont - 09/29/2022 3:35 pm CLINICAL HISTORY: Change in LOC COMPARISON: No comparisons TECHNIQUE: All CT scans are performed using dose optimization technique as appropriate and may inclu de automated exposure control or mA/KV adjustment according to patient size. FINDINGS: No intracranial hemorrhage, hydrocephalus or extra-axial fluid collection.No areas of brai n edema or evidence of midline shift. The paranasal sinuses and mastoids are clear. The calvarium is intact. IMPRESSION: No acute intracranial abnormality.
--- NOTE | 2022-09-29 15:55 | RAD REPORT ---
EXAM DESCRIPTION: CT - Chest For Pe Angio - 09/29/2022 3:35 pm CLINICAL HISTORY: rule out PE COMPARISON: Thorax W/ Con dated 09/13/2022 TECHNIQUE: Dynamically enhanced axial 3 mm thick images of the chest were obtained during administra tion of <100> mL Isovue 370 IV contrast. Coronal and oblique reconstruction images were generated and reviewed. Exam utilizes a protocol for optimal evaluation of pulmonary arterial tree. Maximum intensity projections 3D imaging was utilized All CT scans are performed using dose optimization technique as appropriate and may include automated exposure control or mA/KV adjustment according to patient size. FINDINGS: Chest Wall: No suspicious thyroid nodules or pathologic lymphadenopathy. Lungs: Pulmonary fibrotic changes as well as areas of consolidation present bilaterally. The overall degree of consolidation has improved since 09/13/2022. Limited by motion. Pleura: Question tiny pneumothoraces located anteriorly and medially. Mediastinum/carly: Trace mediastinal gas. Pulmonary arteries/Aorta: No filling defect identified. No aortic aneurysm. Limited evaluation of the segmental and subsegmental pulmonary arteries due to motion. Heart: No significant pericardial effusion. Cardiomegaly. Upper abdomen: Hepatomegaly. Splenomegaly. Ascites. Bones: No acute abnormality. Right subclavian approach PICC with tip overlying the superior cavoatria l junction. IMPRESSION: Negative for pulmonary embolism. Interval placement of a tracheostomy. Trace pneumomediastinum and tiny bile pneumothoraces noted that may be postoperative. Widespread airspace disease bilaterally with some improvement in some of the consolidative airspace d isease compared 09/13/2022.
[2022-09-29 16:02] LABS: Blood Gas Oxyhemoglobin 84.6 % (94-97); Blood O2 Saturation 87.6 % (92-98.5)
[2022-09-29] MEDS ORDERED: METOPROLOL TARTRATE 5 MG/5 ML INJ IV PRN (17:09)
[2022-09-29] MEDS ORDERED: METOPROLOL TARTRATE 5 MG/5 ML INJ IV STA (17:14)
[2022-09-30 05:42] LABS: Absolute Lymphocytes (CBC) 1.2 K/uL (0.7-4.9); Hematocrit 30.5 % (36.0-45.0); Lymphocytes % 7.1 % (15.3-44.8); MCV 86.2 fL (80-100); RBC Red Blood Cell Count 3.53 M/uL (3.86-4.86)
[2022-09-30 05:48] LABS: Albumin 2.4 g/dL (3.4-5.0); Bilirubin Total 2.1 mg/dL (0.2-1.0); Potassium 3.8 mmol/L (3.5-5.1); Protein, Total 5.4 g/dL (6.4-8.2)
[2022-09-30] MEDS: INSULIN -REGULAR HUMAN 50 UNIT/0.5 ML ML SQ SCH ×4 (06:00→17:24)
[2022-09-30 06:41] LABS: Arterial Blood Carboxyhemoglob 1.8 % (0-1.5); Blood Gas Oxyhemoglobin 89.9 % (94-97); Blood O2 Saturation 92.8 % (92-98.5)
--- NOTE | 2022-09-30 07:55 | RAD REPORT ---
[facility] DES[facility] 5[facility]43 am CLINICAL HISTORY: pneumonia COMPARISON: Chest Single View dated 09/29/2022; Chest Single View dated 09/28/2022; Chest Single View dated 09/28/2022; Chest Single View dated 09/27/2022 TECHNIQUE: Portable AP view of the chest. FINDINGS: Bibasilar patchy opacities, with persistent confluent opacification in the left retrocardi ac space. Some improvement of aeration in the right lung base. Possible small left pleural effusion.T racheostomy tube has been placed. Right arm PICC with tip projecting over the distal SVC. No pneumoth orax. The cardiomediastinal contours are unremarkable. IMPRESSION: Improved right basilar aeration. Persistent confluent airspace opacification in the left retrocardiac space.
[2022-09-30] MEDS: CEFEPIME 1 GM in NA CHLORIDE 0.9% 100 ML IV SCH ×2 (08:56→21:50)
[2022-09-30] MEDS ORDERED: D5W 1,000 ML IV SCH (09:00)
--- NOTE | 2022-09-30 12:17 | P.PN ---
Subjective Date of Service: 09/30/22 Chief Complaint: Respiratory failure Patient is improving s/p trach unresponsive Review of Systems is unable to be obtained Physical Examination - Vital Signs Temperature: 97.2 F Blood Pressure: 139/79 Pulse: 106 Respirations: 24 Pulse Ox (%): 94 - Physical Exam General: Unresponsive Respiratory: Clear to auscultation bilaterally, Diminished Cardiovascular: No edema, Regular rate/rhythm, Normal S1 S2 - Studies Medications List Reviewed: Yes Assessment And Plan - Current Problems (Diagnosis) (1) Respiratory failure Current Visit: Yes Status: Acute Plan: Respiratory failure is post trach FiO2 decreased to 40% PEEP decreased to 5 patient is hyponatremic crease fluid White count is minimally elevated increase water flushes repeat sputum cultures chest x-ray shows an improvement Qualifiers: Chronicity: acute (2) Thrombocytopenia Current Visit: Yes Status: Acute Plan: Chronic thrombocytopenia (3) Pneumomediastinum Current Visit: Yes Status: Acute Plan: Pneumomediastinum has resolved Physician Review: Patient Assessed, Agree with Above Assessment and Plan
--- NOTE | 2022-09-30 21:01 | OP ---
Surgeon: ALDO WRIGHT Preoperative Diagnosis: Respiratory failure. Postoperative Diagnosis: Respiratory failure. Procedure: Open tracheostomy. Anesthesia: General endotracheal anesthesia was administered. I also infiltrated approximately 10 m L of 1% lidocaine with 1:100,000 epinephrine at the incision site. Specimens: None. Estimated Blood Loss: Less than 2 mL. Findings: Easy palpable landmarks. Purulent secretions visualized when the airway was entered. Complications: None. Disposition: Stable. The patient tolerated procedure well. Indication For Procedure: The patient was acutely admitted for pneumonia, sepsis and initially was p laced on BiPAP and when she failed BiPAP she was intubated and placed on a ventilating machine. Her condition has not improved. Thus, these were indications to bring the patient to operative suite for the above-mentioned procedure. Signed consent form was obtained and placed on the chart. Procedure In Detail: A PEG tube was placed by Dr. Ku before I entered the room. So the patient was already sedated and ventilated. I infiltrated approximately 10 mL of 1% lidocaine with 1:100,00 0 epinephrine at the incision site and then the patient was sterilely prepped and draped. The cricoid cartilage was marked with a surgical marker and I made my incision approximately 1 to 2 c m below the cricoid with a #15 blade scalpel through the skin and subcutaneous tissue. I then switch ed to monopolar electrocautery on the setting of 20 for coagulation to dissect to the subplatysmal le leslye. I continued to divide the tissues, superior and inferior to locate the strap muscles. Once the strap muscles were located, I was able to vertically divide between them utilizing the monopolar gricel ctrocautery. I did not see any thyroid tissue at this level. Thus, the isthmus was not necessary to be divided. I then instructed Anesthesia to deflate the endotracheal tube cuff so that I could plac e my cricoid hook. Once placed, I then advanced the trachea superiorly by pulling up on the cricoid hook. I then instructed Anesthesia that I was about to enter the airway. A #6 Shiley tracheostomy t ube cuff was tested and found to be working appropriately. I then entered the airway with a #15 blad e scalpel and was able to see the endotracheal tube cuff. While watching the tube being withdrawn machado periorly, I then used a tracheal technical account representative to open up the airway slightly. Once the endotracheal tube was not visualized and it was withdrawn back to the level of the glottis, I was then able to insert the tracheostomy tube into the airway and then the stylet was removed and the inner cannula was arpita ed into place. The oxygen circuit was then connected to the tube. I then secured the tracheostomy t ube to the neck with 2-0 silk sutures and then a soft collar was placed and sutured with 2-0 silk. A small piece of Surgicel was inserted into the inferior edge of the wound. She tolerated the procedu re well and will be transferred back to the intensive care unit. We will obtain a stat chest x-ray s econdary to increased secretions seen when entering the airway. KD/MODL Voice ID: [id number] Report ID: [id number]
[2022-10-01] MEDS: FENTANYL CITR 100 MCG/2 ML IV PRN ×4 (04:30→23:35)
[2022-10-01] MEDS: INSULIN -REGULAR HUMAN 50 UNIT/0.5 ML ML SQ SCH ×5 (06:00→23:31)
[2022-10-01] MEDS: CEFEPIME 1 GM in NA CHLORIDE 0.9% 100 ML IV SCH ×2 (09:08→20:32)
[2022-10-01] MEDS ORDERED: ALBUTEROL 2.5 MG/3 ML NEB SOL NEB PRN (10:00)
[2022-10-01] MEDS ORDERED: IPRATROPIUM BROM 0.5MG/2.5ML NEB PRN (10:00)
--- NOTE | 2022-10-01 10:03 | P.PN ---
Subjective Date of Service: 10/01/22 Chief Complaint: Respiratory failure Subjective: Improving (Patient remains unresponsive, no new issues, tolerating tube feeds) Physical Examination - Vital Signs Temperature: 98.7 F Blood Pressure: 144/77 Pulse: 101 Respirations: 20 Pulse Ox (%): 95 - Physical Exam General: Unresponsive, Comatose Gastrointestinal: Soft and benign, Other (PEG in place, functional well, no residual) - Studies Medications List Reviewed: Yes Assessment And Plan - Current Problems (Diagnosis) (1) Malnutrition Current Visit: Yes Status: Acute - Plan - continue tube feeding as directed - will sign off for now Physician Review: Patient Assessed, Agree with Above Assessment and Plan
--- NOTE | 2022-10-01 11:29 | P.PN ---
Subjective Date of Service: 10/01/22 Chief Complaint: Respiratory failure Patient is improving more responsive will to move her extremities specially the lower upper arms are very weak opening eyes hemodynamically stable Review of Systems is unable to be obtained Physical Examination - Vital Signs Temperature: 98.7 F Blood Pressure: 144/77 Pulse: 101 Respirations: 20 Pulse Ox (%): 95 - Physical Exam General: Unresponsive Respiratory: Clear to auscultation bilaterally, Diminished Cardiovascular: No edema, Regular rate/rhythm - Studies Medications List Reviewed: Yes Assessment And Plan - Current Problems (Diagnosis) (1) Respiratory failure Current Visit: Yes Status: Acute Plan: Respiratory failure patient is improving plan to change her over to SIMV pressure support White count is still mildly elevated sputum cultures have been ordered chemistries pending patient was hyponatremic we will recheck procalcitonin level Qualifiers: Chronicity: acute (2) Thrombocytopenia Current Visit: Yes Status: Acute Plan: Chronic thrombocytopenia (3) Pneumomediastinum Current Visit: Yes Status: Acute Plan: Pneumomediastinum has resolved Physician Review: Patient Assessed, Agree with Above Assessment and Plan
[2022-10-01 12:01] LABS: Potassium 3.6 mmol/L (3.5-5.1)
[2022-10-01] MEDS ORDERED: METOPROLOL TARTRATE 5 MG/5 ML INJ IV STA (12:40)
[2022-10-01] MEDS: D5W 1,000 ML with NA BICARB 8.4% 50 MEQ IV SCH ×2 (13:45)
--- NOTE | 2022-10-01 13:59 | P.PN ---
Date of Service: 09/29/22 Subjective Patient is scheduled for PEG and trach today. We will stop her sedation and see how she does when she starts waking up. Hopefully her neurologic status will be much better. If it is not then we will do further work-up including imaging studies and neurologic consultation. Physical Examination - Vital Signs reviewed - Physical Exam General: ET tube in place; NGT in place Respiratory: Diminished breath sounds but otherwise clear Cardiovascular: Regular rate/rhythm, Normal S1 S2 Gastrointestinal: NT/ND Normal bowel sounds Neurological: Generalized weakness; responds to pain all 4 extremities through withdrawing Extremities: No clubbing/cyanosis/no edema Assessment & Plan - Problems (Diagnosis) (1) Multifocal pneumonia Current Visit: Yes Status: Acute Pneumonia type: due to unspecified organism Laterality: bilateral Lung location: lower lobe of lung Qualified Code(s): J18.9 - Pneumonia, unspecified organism (2) Thrombocytopenia Current Visit: Yes Status: Acute (3) Anemia associated with acute blood loss Current Visit: Yes Status: Acute (4) Sepsis Current Visit: Yes Status: Acute Sepsis type: sepsis due to unspecified organism Sepsis acute organ dysfunction status: with acute organ dysfunction Severe sepsis acute organ dysfunction type: acute respiratory failure Acute respiratory failure type: with hypoxia Severe sepsis shock status: with septic shock Qualified Code(s): A41.9 - Sepsis, unspecified organism; R65.21 - Severe sepsis with septic shock; J96.01 - Acute respiratory failure with hypoxia (5) Cirrhosis with portal hypertension Current Visit: Yes Status: Chronic Hepatic cirrhosis type: alcoholic cirrhosis Ascites presence: without ascites Qualified Code(s): K70.30 - Alcoholic cirrhosis of liver without ascites (6) Diastolic heart failure Current Visit: Yes Status: Chronic - Plan Continue with plan of care as mentioned below: 1. Continue with IV antibiotics; if muscular weakness continues may stop quinolones. Slowly wean off of ventilator support 2. CT imaging of the brain if patient neurologically not waking up after G-tube and trach is performed. We will stop sedation afterwards. 3. Chest x-ray with multifocal pneumonia; patient's chest x-ray showed improvement-oxygenation improved. 4. Continue monitoring labs; patient also with a history of cirrhosis; resume low-dose anticoagulation for DVT prophylaxis if platelet count stable 5. Appreciate pulmonary consultation; weaning off the ventilator once trach performed 6. Continue with nebs; weaned off the steroids 7. Wean off sedation 8. Continue tube feedings; PEG tube pending today 9. Repeat labs 10. Arrange for LTAC placement 11. GI and DVT prophylaxis
--- NOTE | 2022-10-01 14:06 | P.PN ---
Date of Service: 09/30/22 Subjective Tolerated PEG and trach placement. Off of sedation. However, patient still very lethargic. We went ahead and did a CT of the brain which was negative. Patient has gotten a lot of anxiolytics and would liver cirrhosis will slowly anticipate her neurologic symptoms will improve. Continue monitoring very closely. Physical Examination - Vital Signs reviewed - Physical Exam General: Trach tube in place HEENT: WNL Respiratory: Basilar crackles Cardiovascular: Regular rate/rhythm, Normal S1 S2 Gastrointestinal: NT/ND Normal bowel sounds; PEG tube in place Neurological: Generalized weakness; responds to pain all 4 extremities; withdraws to pain Extremities: No clubbing/cyanosis/no edema Assessment & Plan - Problems (Diagnosis) (1) Multifocal pneumonia Current Visit: Yes Status: Acute Pneumonia type: due to unspecified organism Laterality: bilateral Lung location: lower lobe of lung Qualified Code(s): J18.9 - Pneumonia, unspecified organism (2) Thrombocytopenia Current Visit: Yes Status: Acute (3) Anemia associated with acute blood loss Current Visit: Yes Status: Acute (4) Sepsis Current Visit: Yes Status: Acute Sepsis type: sepsis due to unspecified organism Sepsis acute organ dysfunction status: with acute organ dysfunction Severe sepsis acute organ dysfunction type: acute respiratory failure Acute respiratory failure type: with hypoxia Severe sepsis shock status: with septic shock Qualified Code(s): A41.9 - Sepsis, unspecified organism; R65.21 - Severe sepsis with septic shock; J96.01 - Acute respiratory failure with hypoxia (5) Cirrhosis with portal hypertension Current Visit: Yes Status: Chronic Hepatic cirrhosis type: alcoholic cirrhosis Ascites presence: without ascites Qualified Code(s): K70.30 - Alcoholic cirrhosis of liver without ascites (6) Diastolic heart failure Current Visit: Yes Status: Chronic (7) Myopathy Current Visit: Yes Status: Acute - Plan Continue with plan of care as mentioned below: 1. Continue with IV antibiotics; on cefepime. Slowly weaning off of ventilator support-O2 requirements @ FiO2 of 50% 2. CT imaging of the brain is negative; neurologically still lethargic; sedation on hold 3. Chest x-ray with multifocal pneumonia; patient's chest x-ray showed improvement-oxygenation improving 4. Continue monitoring labs; patient also with a history of cirrhosis; resume low-dose anticoagulation for DVT prophylaxis if platelet count stable; LFTs are stable 5. Appreciate pulmonary consultation; weaning off the ventilator 6. Continue with nebs; may resume steroids 7. Weaned off sedation; waking up more; fentanyl as needed 8. Continue tube feedings; PEG tube completed; start TFs 9. Arrange for LTAC placement 10. GI and DVT prophylaxis
--- NOTE | 2022-10-01 14:10 | P.PN ---
Date of Service: 10/01/22 Subjective Patient continues to have generalized weakness. She is much more awake and alert. Eyes are open and she is starting to move her feet much better. However her left arm still flaccid and her right arm is withdrawing to pain but she really is not able to squeeze well. We will work patient up for different musculoskeletal disorders. Physical Examination - Vital Signs reviewed - Physical Exam General: Trach tube in place HEENT: WNL Respiratory: Basilar crackles Cardiovascular: Regular rate/rhythm, Normal S1 S2 Gastrointestinal: NT/ND Normal bowel sounds; PEG tube in place Neurological: Generalized weakness; responds to pain all 4 extremities; withdraws to pain Extremities: No clubbing/cyanosis/no edema Assessment & Plan - Problems (Diagnosis) (1) Multifocal pneumonia Current Visit: Yes Status: Acute Pneumonia type: due to unspecified organism Laterality: bilateral Lung location: lower lobe of lung Qualified Code(s): J18.9 - Pneumonia, unspecified organism (2) Thrombocytopenia Current Visit: Yes Status: Acute (3) Anemia associated with acute blood loss Current Visit: Yes Status: Acute (4) Sepsis Current Visit: Yes Status: Acute Sepsis type: sepsis due to unspecified organism Sepsis acute organ dysfunction status: with acute organ dysfunction Severe sepsis acute organ dysfunction type: acute respiratory failure Acute respiratory failure type: with hypoxia Severe sepsis shock status: with septic shock Qualified Code(s): A41.9 - Sep sis, unspecified organism; R65.21 - Severe sepsis with septic shock; J96.01 - Acute respiratory failure with hypoxia (5) Cirrhosis with portal hypertension Current Visit: Yes Status: Chronic Hepatic cirrhosis type: alcoholic cirrhosis Ascites presence: without ascites Qualified Code(s): K70.30 - Alcoholic cirrhosis of liver without ascites (6) Diastolic heart failure Current Visit: Yes Status: Chronic (7) Myopathy Current Visit: Yes Status: Acute - Plan Continue with plan of care as mentioned below: 1. Continue with IV antibiotics; on cefepime. Slowly weaning off of ventilator support-O2 requirements @ FiO2 of 50% 2. CT imaging of the brain is negative; neurologically still lethargic; sedation on hold 3. Chest x-ray with multifocal pneumonia; patient's chest x-ray showed improvement-oxygenation improving 4. Continue monitoring labs; patient also with a history of cirrhosis; resume low-dose anticoagulation for DVT prophylaxis if platelet count stable; LFTs are stable 5. Appreciate pulmonary consultation; weaning off the ventilator 6. Continue with nebs; may resume steroids 7. Weaned off sedation; waking up more; fentanyl as needed 8. Continue tube feedings; PEG tube completed; start TFs 9. Arrange for LTAC placement 10. General proceed with work-up for myopathy-cortisol, thyroid, antibodies, B12 level, etc. Also neurology consultation 11. GI and DVT prophylaxis
[2022-10-01] MEDS ORDERED: ACETAMINOPHEN 325 MG TABLET PO ONE (16:10)
[2022-10-01] MEDS: METOPROLOL TAR 50 MG TAB PO SCH (17:29)
[2022-10-02] MEDS: FENTANYL CITR 100 MCG/2 ML IV PRN ×5 (03:15→22:37)
[2022-10-02] MEDS: propofoL 1,000 MG/100 ML VIAL IV SCH ×2 (03:37→17:54)
[2022-10-02 04:57] LABS: Absolute Lymphocytes (CBC) 1.2 K/uL (0.7-4.9); Hematocrit 28.8 % (36.0-45.0); Lymphocytes % 9.5 % (15.3-44.8); MCV 86.7 fL (80-100); MPV 7.6 fL (7.6-11.3); RBC Red Blood Cell Count 3.32 M/uL (3.86-4.86)
[2022-10-02 05:36] LABS: Bilirubin Total 2.5 mg/dL (0.2-1.0); C-Reactive Protein 48.5 mg/L (<3.00); Magnesium 1.9 mg/dL (1.6-2.4); Potassium 3.6 mmol/L (3.5-5.1); Thyroid Stimulating Hormone 0.594 uIU/mL (0.358-3.740)
[2022-10-02] MEDS: INSULIN -REGULAR HUMAN 50 UNIT/0.5 ML ML SQ SCH ×3 (06:00→17:46)
[2022-10-02] MEDS: METOPROLOL TAR 50 MG TAB PO SCH ×2 (06:18→17:47)
[2022-10-02] MEDS ORDERED: KCL 20 MEQ/100 mL IVPB 20 MEQ/100 ML BAG IV SCH (07:00)
[2022-10-02 07:07] LABS: Blood Morphology Comment NOTED (NOT SEEN); Platelet Estimate DECR; White Blood Cell Scan OK (OK)
[2022-10-02 07:08] LABS: Anisocytosis 2+
--- NOTE | 2022-10-02 08:12 | RAD REPORT ---
EXAM DESCRIPTION: [facility] Single View10/02/2022 6:57 am CLINICAL HISTORY: pneumonia COMPARISON: <Comparisons> TECHNIQUE: Portable AP view of the chest. FINDINGS: Tracheostomy tube and nerves. Unchanged in position. Progressive airspace opacities bilate rally, with new opacities in the peripheral right upper to midlung, left upper lung, and mid to basal left lung. No pneumothorax. There may be a small left pleural effusion. The cardiomediastinal contou rs are unremarkable. IMPRESSION: Progressive bilateral airspace opacity concerning for worsening pneumonia.
[2022-10-02] MEDS: CEFEPIME 1 GM in NA CHLORIDE 0.9% 100 ML IV SCH ×2 (08:47→20:08)
[2022-10-02] MEDS: D5W 1,000 ML with NA BICARB 8.4% 50 MEQ IV SCH ×2 (10:21)
[2022-10-03] MEDS: FENTANYL CITR 100 MCG/2 ML IV PRN ×2 (04:16→07:45)
[2022-10-03 04:56] LABS: Potassium 3.7 mmol/L (3.5-5.1)
[2022-10-03] MEDS: METOPROLOL TAR 50 MG TAB PO SCH ×2 (06:00→17:48)
[2022-10-03] MEDS: INSULIN -REGULAR HUMAN 50 UNIT/0.5 ML ML SQ SCH ×4 (06:00→17:09)
[2022-10-03] MEDS ORDERED: KCL 20 MEQ/100 mL IVPB 20 MEQ/100 ML BAG IV SCH (07:00)
[2022-10-03] MEDS: CEFEPIME 1 GM in NA CHLORIDE 0.9% 100 ML IV SCH ×2 (07:40→20:48)
--- NOTE | 2022-10-03 08:23 | RAD REPORT ---
EXAM DESCRIPTION: RAD - Chest Single View - 10/03/2022 8:10 am CLINICAL HISTORY: [place], ARDS COMPARISON: Chest Single View dated 10/02/2022; Chest Single View dated 09/30/2022; Chest Single View dated 09/29/2022; Chest Single View dated 09/28/2022; Chest Single View dated 09/15/2022; Chest For [place] dated 09/29/2022 FINDINGS: Lines: Tracheostomy . Right subclavian approach PICC with tip overlying the SVC. Lungs: Similar widespread pulmonary opacities without significant change. Pleural: No significant pleural effusions or pneumothorax. Cardiac: Similar size configuration. Mediastinum: Within normal limits. Bones: No acute fractures. Other: None IMPRESSION: Similar widespread airspace disease which could represent multifocal pneumonia and/or AR DS.
[2022-10-03] MEDS ORDERED: LORazepam 2 MG/ML VIAL IV PRN (08:24)
[2022-10-03] MEDS: HYDROMORPHONE HCL 2 MG/ML inj IV PRN ×2 (09:43→17:10)
[2022-10-03] MEDS: Ringers Lactate 1,000 ML IV SCH (10:20)
--- NOTE | 2022-10-03 12:38 | P.PN ---
Subjective Date of Service: 10/03/22 Chief Complaint: Respiratory failure S/p trach more responsive for some respiratory distress this morning FiO2 had to be increased currently on a PEEP Review of Systems is unable to be obtained Physical Examination - Vital Signs Temperature: 99.7 F Blood Pressure: 108/62 Pulse: 79 Respirations: 16 Pulse Ox (%): 93 - Physical Exam General: Alert, Moderate distress Neck: Supple Respiratory: Clear to auscultation bilaterally, Crackles/rales, Rhonchi/gurgles Cardiovascular: No edema, Regular rate/rhythm, Normal S1 S2 - Studies Medications List Reviewed: Yes Assessment And Plan - Current Problems (Diagnosis) (1) Respiratory failure Current Visit: Yes Status: Acute Plan: Patient's condition worsened this morning is on higher FiO2 now chest x-ray no change chemistries reviewed white count is declining cultures so far negative including sputum changes on cefepime hyponatremia resolved better some Ativan and Dilaudid wean off the propofol bedside physical therapy stable for transfer Qualifiers: Chronicity: acute (2) Thrombocytopenia Current Visit: Yes Status: Acute Plan: Chronic thrombocytopenia Physician Review: Patient Assessed, Agree with Above Assessment and Plan
[2022-10-03] MEDS: propofoL 1,000 MG/100 ML VIAL IV SCH (15:36)
--- NOTE | 2022-10-03 17:43 | P.PN ---
Subjective Date of Service: 10/03/22 Chief Complaint: Respiratory failure She was seen this morning on rounds. She appears very lethargic. Per RN, she de- saturates significantly with any type of movement. Plan is for LTAC, but would like to keep in hospital until more stable for transfer. CT head requested, but is pending based on her hemodynamic stability. Review of Systems is unable to be obtained Physical Examination - Vital Signs Temperature: 99.8 F Blood Pressure: 115/57 Pulse: 83 Respirations: 40 Pulse Ox (%): 90 - Studies Medications List Reviewed: Yes Assessment And Plan - Plan - Physical Exam General: Lethargic, minimally responsible HEENT: Atraumatic, Sclerae nonicteric, s/p trach Neck: JVD not distended Respiratory: Diminished, Rhonchi/rales Cardiovascular: No edema, Regular rate/rhythm, No murmurs Gastrointestinal: S/P PEG, Hypoactive bowel sounds, Soft, Non-distended, No tenderness Musculoskeletal: No clubbing Integumentary: No rashes Neurological: Minimally responsive # Acute Hypoxemic Respiratory Failure - likely secondary to Multifocal Pneumonia with concern for progression into Acute Respiratory Distress Syndrome (ARDS) s/p Tracheostomy # Acute Toxic Metabolic Encephalopathy suspect due to above - Evaluation thus far: - D-Dimer = [phone] - CT chest angiogram ordered, but unable to be obtained due to her hemodynamic instability. Discussed with Dr. Darden (Pulmonology), he believes that her d-dimer is elevated due to ARDS. He recommended against systemic anticoagulation given her thrombocytopenia. Will continue to monitor closely. - Procalcitonin = 0.31 -> 0.24 -> 0.12 - ABG = pH 7.37, PCO2 38.4, PO2 56.1 - Chest x-ray (09/13) = "extensive bilateral pulmonary opacities are present, greater on the right. This may represent bilateral pneumonia or pulmonary edema. The heart is mildly enlarged in size. No displaced fractures." - CT chest (09/13) = " 1. Extensive bilateral pulmonary infiltrates. 2. Findings suggestive of hepatic cirrhosis and sequela of portal hypertension. 3. Other findings as above." - Chest x-ray (09/19) = "extensive bilateral pulmonary opacities are again seen, greater on the right and appearing mildly progressive since the comparative study from yesterday. The heart is moderately enlarged. Right-sided PICC line has tip in the SVC." - Chest x-ray (09/20) = "similar widespread airspace disease which may reflect multifocal pneumonia, edema, and/or ARDS." - CT chest angiogram (09/29) = "negative for pulmonary embolism. Interval placement of a tracheostomy. Trace pneumomediastinum and tiny bile pneumothoraces noted that may be postoperative. Widespread airspace disease bilaterally with some improvement in some of the consolidative airspace disease compared 09/13/2022." - Chest x-ray (10/02) = "progressive bilateral airspace opacity concerning for worsening pneumonia." - Management plan: - Consulted Pulmonary Medicine and spoke with Dr. Darden - recommendations appreciated - Consulted Respiratory Therapy - Supplemental oxygen to maintain SpO2 > 92% - Continue cefepime - Encourage incentive spirometry when able # Suspected Septic Shock likely secondary to Multifocal Pneumonia - POA # Thrombocytopenia suspect secondary to Sepsis She met sepsis criteria based on HR > 90 bpm, RR > 20 breaths/min, and WBC > 12,000, and the suspected source is pneumonia. Severe sepsis is suspected due to concern for tissue hypoperfusion/organ dysfunction based on acute respiratory failure requiring BiPAP and lactic acid > 2 mmol/L. Septic shock is suspected due to initial lactate > 4 mmol/L. - Sepsis order set was initiated - Initial Lactate was 5.4 -> 2.9 - Blood cultures drawn before antibiotics were given - Broad spectrum antibiotics started: Levofloxacin - In regards to fluids: - 30 mL/kg of IV fluids was not administered given SBP > 90 and concern for volume overload - Sepsis reassessment completed by Cristin Dallas PA-C on 09/14/2022 @ 05:34 AM. # Acute on Chronic Decompensated Diastolic Congestive Heart Failure with Preserved Ejection Fraction - Consulted Cardiology - recommendations appreciated - Transthoracic echocardiogram = "1. normal left ventricular ejection fraction 55-60% with normal wall motion 2. moderate diastolic dysfunction 3. left atrial enlargement 4. moderate mitral regurgitation 5. mild tricuspid regurgitation" - Diuresis per Cardiology - Daily weights - Strict I/O - Cardiac diet, 1.5 L fluid restriction, 2 g Na restriction # Alcoholic Cirrhosis complicated by Portal Hypertension # Cholelithiasis - Abdominal ultrasound = "cholelithiasis without evidence cholecystitis. Borderline splenomegaly. Mildly increased hepatic echotexture may indicate mild fatty infiltration. Mildly nodular hepatic contour indicating chronic disease." - MELD score = 14 - Continue lactulose - Continue dexmedetomidine - wean as tolerated # Hypertension - Hold home anti-hypertensives given soft blood pressures # Hyperlipidemia - Continue home atorvastatin Jeremy Beard M.D.
[2022-10-04 01:28] VITALS: O2SAT 97
[2022-10-04] MEDS: HYDROMORPHONE HCL 2 MG/ML inj IV PRN ×2 (02:40→11:10)
[2022-10-04 04:57] LABS: Absolute Lymphocytes (CBC) 1.6 K/uL (0.7-4.9); Hematocrit 29.6 % (36.0-45.0); Lymphocytes % 13.3 % (15.3-44.8); MCV 89.3 fL (80-100); MPV 8.2 fL (7.6-11.3); RBC Red Blood Cell Count 3.31 M/uL (3.86-4.86)
[2022-10-04 05:04] VITALS: BMI 25.1
[2022-10-04] MEDS: Ringers Lactate 1,000 ML IV SCH (05:11)
[2022-10-04] MEDS: INSULIN -REGULAR HUMAN 50 UNIT/0.5 ML ML SQ SCH ×3 (06:00→12:00)
[2022-10-04] MEDS: CEFEPIME 1 GM in NA CHLORIDE 0.9% 100 ML IV SCH (08:28)
--- NOTE | 2022-10-04 11:20 | P.DS ---
Admission Date: 09/14/22 Discharge Date: 10/04/22 Disposition: [facility]ACILITY Discharge Condition: FAIR Reason for Admission: Respiratory failure Consultations: 1. Pulmonary Medicine 2. General Surgery 3. Otorhinolaryngology Procedures: - 09/22/2022 - Endotracheal Intubation - 09/29/2022 - Tracheostomy Tube Placement - 09/29/2022 - PEG Tube Placement Hospital Course: DIAGNOSES: # Acute Hypoxemic Respiratory Failure - likely secondary to Multifocal Pneumonia with concern for progression into Acute Respiratory Distress Syndrome (ARDS) s/p Tracheostomy # Acute Toxic Metabolic Encephalopathy suspect due to above # Suspected Septic Shock likely secondary to Multifocal Pneumonia - POA # Thrombocytopenia suspect secondary to Sepsis # Acute on Chronic Decompensated Diastolic Congestive Heart Failure with Preserved Ejection Fraction # Pneumomediastinum suspect secondary to Barotrauma from Mechanical Ventilation - improved/stable # Question of Tiny Bilateral Pneumothoraces - stable # Alcoholic Cirrhosis complicated by Portal Hypertension # Cholelithiasis # Hypertension # Hyperlipidemia HOSPITAL COURSE: Ms. Crystal Potter is a 57 year old female with a past medical history significant for chronic diastolic congestive heart failure, alcoholic cirrhosis complicated by portal hypertension, hypertension, and hyperlipidemia who was admitted to the [facility] on 09/14/2022 for septic shock secondary to multifocal pneumonia. She was admitted to the Medicine service. Upon further evaluation, she was found to have acute hypoxemic respiratory failure requiring BiPAP. Pulmonary Medicine was consulted and she was evaluated by Dr. Darden. She was started on IV antibiotics and monitored in the intensive care unit. Despite BiPAP therapy, her respiratory status continued to decline. On 09/22/2022, she required endotracheal intubation and placement on mechanical ventilator. Her hospital course was complicated by pneumomediastinum, which was suspected to be secondary to barotrauma. Despite multiple attempts, she was unable to be weaned off of the ventilator. It was decided that she would likely need a tracheostomy tube for continued mechanical ventilation. Otorhinolaryngology (Dr. Green) and General Surgery (Dr. Ku) were consulted and she underwent tracheostomy and PEG tube placement by the respective specialities. On 09/29/2022, she had stabilized enough to obtain a CT chest angiogram, which revealed, "negative for pulmonary embolism. Interval placement of a tracheostomy. Trace pneumomediastinum and tiny bile pneumothoraces noted that may be postoperative. Widespread airspace disease bilaterally with some improvement in some of the consolidative airspace disease compared 09/13/2022." Throughout her hospitalization, her mental status remained poor. She was intermittently alert and oriented x 0-[address] head revealed, "no acute intracranial abnormality." It was thought that her mental status was secondary to acute toxic metabolic encephalopathy secondary to her respiratory failure and septic shock. After discussions with the consultants, it was advised that he be transferred to an LTAC. With the assistance of case management, she was accepted to [facility]. Doc-to-doc was completed with accepting [facility] attending physician, Dr. Ellison. Dr. Darden has cleared her for discharge to LT. I have spoken with her mother, Ms. Marcus, who has agreed with transport to [facility]. I have updated her on the plan and explained that she should follow- up with a General Surgeon to evaluate the gallbladder polyp once she is discharged from [facility]. On 10/04/2022, she was seen on rounds and deemed medically stable for transfer. Her mother was given the opportunity to ask questions and reported no further questions. Furthermore, all questions were answered to the best of my ability. A copy of this discharge summary will be sent to the above providers to facilitate continuity of care. Today, I personally spent 45 minutes on her case, of which greater than 50% of the time was spent in patient education, counseling, and coordination of care as described above. - Physical Exam General: Alert & Oriented x 1 to self, no distress HEENT: Atraumatic, Sclerae nonicteric, s/p trach Neck: JVD not distended Respiratory: Diminished, Scattered rhonchi/rales Cardiovascular: No edema, Regular rate/rhythm, No murmurs Gastrointestinal: S/P PEG, Hypoactive bowel sounds, Soft, Non-distended, No tenderness Musculoskeletal: No clubbing Integumentary: No rashes Neurological: Opens her eyes to voice, not reliably following commands Vital Signs/Physical Exam: Temp Pulse Resp BP Pulse Ox 97.6 F 78 16 103/64 98 10/04/22 04:00 10/04/22 06:00 10/04/22 06:00 10/04/22 06:00 10/04/22 06:00 Laboratory Data at Discharge: WBC 12.30 K/uL (4.3-10.9) H 10/04/22 04:27 Hgb 9.0 g/dL (12.0-15.0) L 10/04/22 04:27 Hct 29.6 % (36.0-45.0) L 10/04/22 04:27 Plt Count 128 K/uL (152-406) L 10/04/22 04:27 PT 17.0 SECONDS (9.5-12.5) H 09/28/22 04:45 INR 1.55 09/28/22 04:45 APTT 25.5 SECONDS (24.3-36.9) 09/28/22 04:45 Sodium 140 mmol/L (136-145) 10/04/22 04:27 Potassium 5.0 mmol/L (3.5-5.1) D 10/04/22 04:27 BUN 35 mg/dL (7-18) H 10/04/22 04:27 Creatinine 0.48 mg/dL (0.55-1.02) L 10/04/22 04:27 Glucose 136 mg/dL (74-106) H 10/04/22 04:27 Phosphorus 3.0 mg/dL (2.5-4.9) 09/29/22 05:10 Magnesium 1.9 mg/dL (1.6-2.4) 10/02/22 04:45 Total Bilirubin 2.5 mg/dL (0.2-1.0) H 10/02/22 04:45 AST 71 U/L (15-37) H 10/02/22 04:45 ALT 52 U/L (13-56) 10/02/22 04:45 Alkaline Phosphatase 95 U/L (45-117) 10/02/22 04:45 Triglycerides 60 mg/dL (<150) 09/14/22 04:33 Cholesterol 130 mg/dL (<200) 09/14/22 04:33 HDL Cholesterol 42 mg/dL (40-60) 09/14/22 04:33 Cholesterol/HDL Ratio 3.10 09/14/22 04:33 Home Medications: Amlodipine [Norvasc] 10 mg PO DAILY 09/14/22 Lamotrigine [Lamotrigine ER] 200 mg PO DAILY 09/14/22 Levocetirizine Dihydrochloride [Xyzal] 5 mg PO DAILY 09/14/22 Mirtazapine 45 mg PO BEDTIME 09/14/22 Oxcarbazepine [Trileptal] 300 mg PO BID 09/14/22 Simvastatin [Zocor] 20 mg PO DAILY 09/14/22 Zolpidem Tartrate [Ambien] 10 mg PO BEDTIME 09/14/22 cloNIDine HCL [Clonidine HCl] 0.1 mg PO DAILY PRN 09/14/22 hydrOXYzine HCL [Atarax] 1 tab PO DAILY PRN 09/14/22 Levocetirizine Dihydrochloride [Xyzal] 5 mg PO PRN PRN 09/22/22 Losartan Potassium [Cozaar] 50 mg PO DAILY 09/22/22 Meloxicam 15 mg PO DAILY 09/22/22 Physician Discharge Instructions: - Continue medical care at [facility] - Once discharged, please schedule a follow-up appointment with General Surgery (Dr. Ku) for the polyp on your gallbladder - These polyps can sometimes turn into cancer, it is very important that this gets followed closely by your outpatient doctor Diet: tube feeds Activity: Bedrest Followup: Hal Ku MD [ACTIVE - CAN ADMIT] - Konstantin Ellison MD [ACTIVE - CAN ADMIT] - Oscar Darden MD [ACTIVE - CAN ADMIT] - Amaya Green DO [ACTIVE - CAN ADMIT] - Time spent managing pt's care (in minutes): 45
[2022-10-04 16:06] VITALS: TEMP 98
[2022-10-04 18:28] VITALS: BP 134/65
[2022-10-04] MEDS: propofoL 1,000 MG/100 ML VIAL IV SCH (18:36)
== END 2022-10-04 19:05 | DRG 4 ==
LOC: ER 20:56 → EDSEX 09-14 01:03 → ERHOLD 09-14 01:03 → 3RD-ICU 09-14 01:46
PROVIDERS: ADMIT Hospitalist; ATTEND Internal Medicine
PROC: 5A09557 Assistance with Respiratory Ventilation, Greater than 96 Consecutive Hours, Continuous Positive Airway Pressure (ICD-10-PCS; 2022-09-14)
PROC: 02HV33Z Insertion of Infusion Device into Superior Vena Cava, Percutaneous Approach (ICD-10-PCS; 2022-09-17)
PROC: 3E0336Z Introduction of Nutritional Substance into Peripheral Vein, Percutaneous Approach (ICD-10-PCS; 2022-09-18)
PROC: 5A1955Z Respiratory Ventilation, Greater than 96 Consecutive Hours (ICD-10-PCS; principal; 2022-09-23)
PROC: 0BH18EZ Insertion of Endotracheal Airway into Trachea, Via Natural or Artificial Opening Endoscopic (ICD-10-PCS; 2022-09-23)
PROC: 0B110Z4 Bypass Trachea to Cutaneous, Open Approach (ICD-10-PCS; 2022-09-30)
DX: A41.9 Sepsis, unspecified organism (principal); J18.9 Pneumonia, unspecified organism; R65.21 Severe sepsis with septic shock; K72.00 Acute and subacute hepatic failure without coma; J80 Acute respiratory distress syndrome; I50.33 Acute on chronic diastolic (congestive) heart failure; G92.8 Other toxic encephalopathy; J45.901 Unspecified asthma with (acute) exacerbation; K76.6 Portal hypertension; D62 Acute posthemorrhagic anemia; E46 Unspecified protein-calorie malnutrition; J93.9 Pneumothorax, unspecified; I11.0 Hypertensive heart disease with heart failure; D69.6 Thrombocytopenia, unspecified; I08.1 Rheumatic disorders of both mitral and tricuspid valves; J98.2 Interstitial emphysema; G72.9 Myopathy, unspecified; E78.5 Hyperlipidemia, unspecified; E88.09 Other disorders of plasma-protein metabolism, not elsewhere classified; K80.20 Calculus of gallbladder without cholecystitis without obstruction; K70.30 Alcoholic cirrhosis of liver without ascites; T70.29XA Other effects of high altitude, initial encounter; Z78.1 Physical restraint status; Z68.21 Body mass index [BMI] 21.0-21.9, adult; Z87.891 Personal history of nicotine dependence; Z20.822 Contact with and (suspected) exposure to COVID-19
CPT/HCPCS: 0241U; 36415; 36569; 51702; 70450; 71045; 71260; 71275; 76700; 80048; 80053; 80061; 80074; 80076; 80202; 81003; 82140; 82248; 82533; 82607; 82747; 82805; 82947; 83519; 83540; 83605; 83615; 83735; 83880; 84100; 84145; 84439; 84443; 84466; 84484; 85014; 85018; 85025; 85027; 85044; 85379; 85384; 85610; 85730; 86140; 86850; 86880; 86900; 86901; 87040; 87070; 87205; 87389; 87449; 93005; 93306; 93970; 94002; 94003; 94640; 94660; 94760; 96372; 97161; 99285; A4216; C9113; J0330; J0456; J0692; J1100; J1170; J1650; J1815; J1940; J2250; J2270; J2543; J2704; J2916; J2920; J2930; J3010; J3370; J3411; J3430; J3475; J3480; J7030; J7040; J7050; J7120; J7613; J7614; J7644; P9047; Q9967

== ENCOUNTER 2022-12-15 07:27 | Observation (INO) | payer OTHER ==
--- OUTSIDE RECORDS SUMMARY | 2022-12-15 07:33 | XMS REPORT | Continuity of Care Document ---
:1965 Author Organization [facility] t Address [address] [place] [address] [address] [place] [address] Care Team Providers Name Role Phone Marcello Ferro Primary Care Physician SYDNEY ALVAREZ Attending Clinician Unavailable EDDIE RG Attending Clinician Unavailable Eddie Rg Attending Clinician ROBE FOWLER Attending Clinician Unavailable Robe Fowler Attending Clinician SYDNEY ALVAREZ Attending Clinician Unavailable Sydney Alvarez Attending Clinician Darline Delgado Attending Clinician Darline Delgado Attending Clinician Norah Aguilar Attending Clinician NORAH AGUILAR Attending Clinician Unavailable Marcello Ferro Attending Clinician Zamzam De Attending Clinician EDDIE RG Admitting Clinician Unavailable Eddie Rg Admitting Clinician [phone] ARLEEN GROSS Admitting Clinician Unavailable Arleen Gross Admitting Clinician Payers Payer Name Policy Type Policy Number Effective Date Expiration Date Michael guadarrama [facility] [id number] 2019 2024 00:00:00 CHOICE/CHOICE 00:00:00 PLUS Problems Condition Condition Condition Status Onset Resolution Last Treating Co mments Source Name Details Category Date Date Treatment Clinician Date INTENTIONA INTENTION Diagnosis Active 2020-082021-08-03 Memoria L DRUG AL DRUG 09-21 21:50:00 l OVERDOSE OVERDOSE 00:00: Adin baird Active 00 07/21/2021 [facility] [place] OVERDOSE OVERDOSE Diagnosis Active 2020-082021-07-21 Memoria Active 09-21 15:35:00 l 07/21/2021 00:00: Adin baird [facility] 00 [place] AMS AMS Diagnosis Active 2020-082021-07-22 Mem oria Active 08-14 17:33:00 l 06/14/2021 00:00: Adin baird [facility] POSSIBLE POSSIBLE Diagnosis Active 2020-082021-06-14 Memoria OVERDOSE OVERDOSE 08-14 18:54:00 l Active 00:00: [place] 06/14/2021 00 [facility] UNK UNK Diagnosis Active 2021-01-21 Mem oria Active 01-19 16:23:00 l 01/19/2021 00:00: Adin baird [facility] 00 [place] EGD/COLONO EGD/COLON Diagnosis Active 2021-01-22 Memoria SCOPY OSCOPY 01-19 08:12:00 l Active 00:00: [place] 01/19/2021 00 [facility] [place] R10.2 - R10.2 - Diagnosis Active 2021-01-20 Memoria PELVIC AND PELVIC AND 01-06 09:38:00 l PERINEAL PERINEAL 00:01: Adin baird PAIN PAIN 00 Active 01/06/2021 [facility] [place] OVARIAN OVARIAN Diagnosis Active 2020-12-27 Memoria PAIN PAIN 12-27 13:20:00 l Active 00:00: [place] 12/27/2020 00 [facility] [place] J45.40 - J45.40 - Diagnosis Active 2016-08-12 Memoria "MODERATE "MODERATE -06 11:46:00 l PERSISTENT PERSISTENT 00:01: [place] ASTHMA, UN ASTHMA, UN 00 Active 08/12/2016 JOVANY SIMMONS [facility] Pain in Problem 2019-03-28 Me moria left knee left knee 11:20:30 l 03/28/2019 Adin MANZO OPID [facility] Stress Stress Problem 2019-03-28 Deandre lesa fracture, fracture, 11:20:30 l unspecifie unspecifie [place] d site, d site, initial initial encounter encounter for for fracture fracture 03/28/2019 IRIS Gooden Asymptomat Asymptoma Problem 2019-03-28 Memoria ic tic 11:20:30 l menopausal menopausal [facility] state state 03/28/2019 IRIS Gooden Asthma Asthma Problem Active 2021-07-26 Mem oria (disorder) (disorder) 09:30:00 l Active [place] Problem 07/26/2021 [facility] Gastroesop Gastroeso Problem Active 2021-07-26 Memoria hageal phageal 09:30:00 l reflux reflux [place] disease disease (disorder) (disorder) Active Problem 07/26/2021 [facility] Hyperlipid Hyperlipi Problem Active 2021-07-26 Memoria emia demia 09:30:00 l (disorder) (disorder) [place] Active Problem 07/26/2021 [facility] Hypertensi Hypertens Problem Active 2021-07-26 Memoria ve rico 09:30:00 l disorder, disorder, [place] louise systemic systemic arterial arterial (disorder) (disorder) Active Problem 07/26/2021 [facility] Obstructiv Obstructi Problem Active 2021-07-26 Memoria e sleep ve sleep 09:30:00 l apnea apnea [place] syndrome syndrome (disorder) (disorder) Active Problem 07/26/2021 [facility] Seasonal Seasonal Problem Active 2021-07-26 Memoria allergy allergy 09:30:00 l (disorder) (disorder) [place] Active Problem 07/26/2021 [facility] Steatosis Problem Active 2021-07-26 Me moria of liver Steatosis 09:30:00 l (disorder) of liver [place] louise (disorder) Active Problem 07/26/2021 [facility] Family Family Problem Active 2016-10-13 Deandre lesa history of history of 03:23:57 l coronary coronary Adin n artery artery disease disease Active Problem 10/13/2016 [facility] Essential Essential Diagnosis Active 2016-10-13 Memoria (primary) (primary) 03:23:57 l hypertensi hypertensi [place] on on Active Diagnosis 10/13/2016 [facility] ALTERED ALTERED Diagnosis Active 2021-07-22 Memoria MENTAL MENTAL 17:33:00 l STATUS, STATUS, [place] UNSPECIFIE UNSPECIFIE D D Active [facility] POISONING POISONING Diagnosis Active 2021-08-03 Memoria BY UNSP BY UNSP 21:50:00 l DRUG/MEDS/ DRUG/MEDS/ [place] BIOL BIOL SUBST, SUBST, Active [facility] [place] Hypokalemi Hypokalem Problem Resolve 2021-07-26 2021-07-26 Memoria a ia d 12-27 09:30:00 09:30:00 l (disorder) (disorder) 00:00: [place] Resolved 00 12/27/2020 Problem 07/26/2021 Darlene Gooden [facility] History of Past Illness Condition Condition Condition Status Onset Resolution Last Treating Co mments Source Name Details Category Date Date Treatment Clinician Date Unspecifie Unspecifi Problem 2020-12-29 2020-12-29 Memoria d ed 12-27 21:49:34 21:49:34 l abdominal abdominal 17:00: [place] pain pain 00 12/27/2020 12/29/2020 [facility] Fatty Fatty Problem 2020-12-29 2020-12-29 M emoria (change (change 12-27 21:49:34 21:49:34 l of) liver, of) liver, 17:00: [place] not not 00 elsewhere elsewhere classified classified 12/27/2020 12/29/2020 [facility] Hypokalemi Hypokalem Problem 2020-12-29 2020-12-29 Memoria a ia 12-27 21:49:34 21:49:34 l 12/27/2020 17:00: Adin n 12/29/2020 00 [facility] Elevation Elevation Problem 2020-12-29 2020-12-29 Memoria of levels of levels 12-27 21:49:34 21:49:34 l of liver of liver 17:00: Adin baird transamina transamina 00 se levels se levels 12/27/2020 12/29/2020 [facility] Pain in Pain in Problem 2019-03-28 2019-03-28 Memoria right knee right knee 11-28 11:20:30 11:20:30 l 11/28/2018 05:57: Adin n 03/28/2019 38 [facility] IRIS Sullivan Allergies, Adverse Reactions, Alerts Allergy Allergy Status Severity Reaction(s) Onset Inactive Treating Comm ents Source Name Type Date Date Clinician Nadia. Zeyad Active Info Not Deandre lesa Available 09-15 l 00:00: [place] 00 No Known No Known Active Memori a Medicati Medicati l on on [place] Allergie Allergie s s Social History Social Habit Start Date Stop Date Quantity Comments Source Social History 2021-06-15 2021-06-15 [facility] ermann 02:33:47 02:33:47 Caffeine: 2016-09-15 2016-09-15 [facility] nn 00:00:00 00:00:00 Sex [facility][birth year] At [birth year] [facility] 00:00:00 00:00:00 Smoking Status Start Date Stop Date Source Tobacco smoking consumption unknown [facility] Medications Ordered Filled Start Stop Current Ordering Indication Dosage Frequency Signature Comments Components Source Medication Medication Date Date Medication? Clinician (SIG) Name Name Magnesium 2020-08 No Notes: Memori a Sulfate 2-17 WASTE: F/P l 17:56: - Sink; E [place] 00 - Municipal Trash Bin Mirtazapine 2020-08 No Notes: Deandre lesa 2-17 (Same l 03:00: as:Remeron [place] 00 ) influenza 2020-08 No Notes: Memori a virus 2-17 (Same as: l vaccine, 00:19: Fluzone Adin n inactivated 09 Quadrivale nt, Fluarix Quadrivale nt) For patients 6 - 35 months of age (0.5 mL IM) For 3 years of age and older (0.5 mL IM) Shake well before use lamotrigine 2020-08 No Notes: Deandre lesa 100 MG Oral 2-16 (Same l Tablet 23:00: as:LaMICta Honey nn 00 l) pantoprazol 2020-08 No Notes: Deandre lesa e 2-16 Tablet l 22:30: should not [place] 00 be chewed or crushed. (Same as: Protonix) Albuterol 2020-08 No Notes: Memori a 0.833 MG/ML 2-16 (Same as: l / 16:25: Duoneb) [place] Ipratropium 00 [place] 0.167 MG/ML Inhalant Solution [DuoNeb] Cyclosporin 2020-08 Yes 1 drp, Deandre lesa e 0.5 MG/ML 2-16 BOTH EYES, l Ophthalmic 05:33: BID, # 30 [place] Suspension 00 mL, 0 [Restasis] Refill(s) olanzapine 2020-08 Yes 5 mg = 1 Mem oria 5 MG Oral 2-16 tab, PO, l Tablet 05:33: Daily, 0 [place] 00 Refill(s) levocetiriz 2020-08 Yes 5 mg = 1 Me moria ine 5 mg 2-16 tab, PO, l oral tablet 05:32: QPM, # 30 H [place] 00 tab, 1 Refill(s) meloxicam 2020-08 Yes 15 mg = 1 Mem oria 15 mg oral 2-16 tab, PO, l tablet 05:32: Daily, # [place] 00 30 tab, 0 Refill(s) Breo 2020-08 Yes 1 puff, Memoria Ellipta 200 2-16 INHALATION l mcg-25 05:32: , Daily, 0 Honey nn mcg/inh 00 Refill(s) inhalation powder Clonidine 2020-08 Yes 0.1 mg = 1 Me moria Hydrochlori 2-16 tab, PO, l de 0.1 MG 05:30: BID, 0 Adin n Oral Tablet 00 Refill(s) Albuterol 2020-08 Yes 2 puff, Memor ia (Eqv-ProAir 2-16 INHALATION l HFA) 90 05:29: , Q6H, 0 Adin n mcg/inh 00 Refill(s) inhalation aerosol baclofen 10 2020-08 Yes 10 mg = 1 M emoria mg oral 2-16 tab, PO, l tablet 05:28: TID, # 270 Honey nn 00 tab, 0 Refill(s) amLODIPine 2020-08 Yes 10 mg = 1 Me moria 10 mg oral 2-16 tab, PO, l tablet 05:27: Daily, # [place] 00 30 tab, 0 Refill(s) zolpidem 10 2020-08 Yes 10 mg = 1 M emoria mg oral 2-16 tab, PO, l tablet 05:27: Bedtime, # Honey nn 00 14 tab, 0 Refill(s) QUEtiapine 2020-08 Yes 150 mg = 1 M emoria 150 mg oral 2-16 tab, PO, l tablet, 05:26: Daily, # Adin n extended 00 30 tab, 0 release Refill(s) albumin 2020-08 No Notes: Lot Deandre lesa human 25% 2-16 #: l intravenous 03:15: [place] solution 00 ___ Mfg: (Same as: Plasbumin- 25) "blood product derivative " WASTE: F/P - Red; E -Red MEDICATION WASTE Product Size: 25 gm Product Wasted: ___ gm Saline 2020-08 No Notes: Memoria Flush 0.9% 2-16 Same as: l 03:00: BD [place] 00 Posiflush Sterile Lovenox 2020-08 No Notes: Memoria 2-16 (Same as: l 03:00: Lovenox) [place] 00 Potassium 2020-08 No Notes: Memori a Chloride 2-16 (Same as: l 02:11: KCL) 10 [place] 00 mEq/100ml product recommende d for peripheral line administra tion. Infuse no faster than 10 mEq/hr if given peripheral ly. sodium 2020-08 No Notes: Memoria phosphate 2-16 Infuse l 02:11: over 4 [place] 00 hour. Do not infuse phosphorou s concurrent ly in the same line as TPN or IVF that contains calcium. For double lumen central lines, phosphorou s may be infused in a separate lumen from TPN. potassium 2020-08 No Notes: Memori a phosphate 2-16 (Same as: l 02:11: K [place] 00 Phosphate. ) Do not infuse phosphorou s concurrent ly in the same line as TPN or IVF that contains calcium. For double lumen central lines, phosphorou s may be infused in a separate lumen from TPN. 1 mMol phoshate has 1.47 mEq potassium Infuse over 4 hours potassium 2020-08 No Notes: Memori a phosphate-s 2-16 (Same as: l odium 02:11: Phos-NaK) [place] phosphate 00 Each 1.5 250 mg-280 gm pkt has mg-160 mg 250mg oral powder phosphorou for s. Mix reconstitut w/2.5oz ion water and stir. Magnesium 2020-08 No Notes: Memori a Sulfate 2-16 WASTE: F/P l 02:11: - Sink; E [place] 00 - Municipal Trash Bin Magnesium 2020-08 No Notes: Memori a Oxide 2-16 (Same as: l 02:11: Mag-Ox [place] 00 400) Magnesium oxide [id number] g elemental magnesium Dose=____m g magnesium oxide (___mg elemental magnesium) Calcium 2020-08 No Notes: Memoria Gluconate 2-16 Contains: l 02:11: calcium [place] 00 gluconate 20mg/mL NaCl 0.67% 50mL WASTE: F/P - Sink; E - Municipal Trash Bin calcium 2020-08 No Notes: Memoria carbonate 2-16 (Same As: l 500 mg (200 02:11: Tums) Honey nn mg 00 Calcium elemental Carbonate calcium) 500 mg = oral tablet 200 mg elemental calcium Dose = mg calcium carbonate ( mg elemental calcium) Nystatin 2020-08 No Notes: Memoria 100 UNT/MG 2-16 (Same l Topical 01:22: as:Mycosta [place] louise Powder 00 tin, Nilstat) For external use only. Saline 2020-08 No Notes: Memoria Flush 0.9% 2-16 Same as: l 01:22: BD [place] 00 Posiflush Sterile Sodium 2020-08 No 1,000 mL, Memori a Chloride 2-16 1000 l 0.9% 01:16: ml/hr, [place] (Bolus) IV 00 Infuse Over: 1 hr, Route: IV, 1,000, Drug form: INJ, ONCE, Priority: STAT, Dosing Weight 66 kg, Start date: 07/21/21 19:16:00 SIGNAL ENGINEER, Stop date: 07/21/21 19:16:00 SIGNAL ENGINEER, 0 Norepinephr 2020-08 No Notes: Deandre lesa ine 2-16 Same as: l 01:16: Levophed. [place] 00 Administer by either central venous catheter or peripheral ly-inserte d central catheter (PICC) line. Sodium 2020-08 No 1,000 mL, Memori a Chloride 2-16 1,000 l 0.9% 00:53: ml/hr, [place] (Bolus) IV 00 Infuse Over: 1 hr, Route: IV, ONCE, Priority: STAT, Dosing Weight 66 kg, Start date: 07/21/21 18:53:00 SIGNAL ENGINEER, Stop date: 07/21/21 18:53:00 SIGNAL ENGINEER Sodium 2020-08 No 1,000 mL, Memori a Chloride 2-16 Rate: 100 l 0.9% IV 00:07: ml/hr, [place] 1,000 mL + 00 Infuse M.V.I.-12 over: 10.1 10 mL Daily hr, Route: + folic IV, Dosing acid IV 1 Weight 66 mg Daily + kg, Total thiamine IV Volume: 1 1,011.2, Start date: 07/21/21 18:07:00 SIGNAL ENGINEER, Duration: 1 doses or times, Stop date: 07/22/21 18:06:00 SIGNAL ENGINEER, BSA: 1.78 m2, 0 Sodium 2020-08 No 1,000 mL, Memori a Chloride 2-15 1,000 l 0.9% 21:47: ml/hr, [place] (Bolus) IV 00 Infuse Over: 1 hr, Route: IV, ONCE, Priority: STAT, Dosing Weight 63.773 kg, Start date: 07/21/21 15:47:00 SIGNAL ENGINEER, Stop date: 07/21/21 15:47:00 SIGNAL ENGINEER Vitamin B1 2020-08 No Notes: Memor ia + Sodium 2-15 (Same As: l Chloride 21:44: Vitamin Adin n 0.9% IV 99 00 B1) mL d50 syringe 2020-08 No 12.5 gm, Me moria 2-15 25 mL, l 21:13: Route: [place] 00 IVP, Drug Form: INJ, Dosing Weight 63.773, kg, ONCE, STAT, Start date: 07/21/21 15:13:00 SIGNAL ENGINEER, Stop date: 07/21/21 15:13:00 SIGNAL ENGINEER, 25 ml = 12.5 gm, 0 Naloxone 2020-08 No Notes: Memoria 2-15 (Same as: l 21:13: Narcan) [place] 00 MEDICATION WASTE Product Size: 2 mg Product Wasted: ___ mg Thiamine 2020-08 No Notes: Memoria 2-15 (Same As: l 21:12: Vitamin [place] 00 B1) Sodium 2020-08 No 1,000 mL, Memori a Chloride 2-15 1000 l 0.9% 21:11: ml/hr, [place] (Bolus) IV 00 Infuse Over: 1 hr, Route: IV, 1,000, Drug form: INJ, ONCE, Priority: STAT, Dosing Weight 63.773 kg, Start date: 07/21/21 15:11:00 SIGNAL ENGINEER, Stop date: 07/21/21 15:11:00 SIGNAL ENGINEER, 0 Escitalopra 2020-08 No Notes: Deandre lesa m 1-15 (Same as: l 15:46: Lexapro) [place] 00 Magnesium 2020-08 No Notes: Memori a Sulfate 1-15 WASTE: F/P l 15:20: - Sink; E [place] 00 - [place]aya Trash Bin Breo 2020-08 No 1 puff, Memoria Ellipta 200 1-15 Route: l mcg-25 15:00: INHALATION Honey nn mcg/inh 00 , Drug inhalation Form: powder PWDR, Dosing Weight 63.773, kg, Daily, Start date: 06/21/21 9:00:00 SIGNAL ENGINEER, Duration: 30 day, Stop date: 07/20/21 9:00:00 SIGNAL ENGINEER Simvastatin 2020-08 No Notes: Deandre lesa 1-15 (Same as: l 03:00: Zocor) [place] 00 Albuterol 2020-08 No Notes: SEE Me moria 1-14 RT l 17:00: DOCUMENTAT [place] 00 ION (Same as: Proventil) Protonix 2020-08 No Notes: Memoria 1-14 Tablet l 16:00: should not be chewed or crushed. (Same as: Protonix) Pulmicort 2020-08 No Notes: Memori a Respules 1-14 (Same As: l 15:47: Pulmicort [place] 00 respule). Magnesium 2020-08 No Notes: Memori a Sulfate 1-14 WASTE: F/P l 15:27: - Sink; E [place] - Municipal Trash Bin montelukast 2020-08 No Notes: Deandre lesa 1-14 (Same l 15:27: as:Singula ir) Omeprazole 2020-08 No 40 mg, 1 Mem oria 1-14 cap, l 15:27: Route: PO, Drug form: DRC QADarlene, Dosing Weight 63.773, kg, Priority: NOW, Start date: 06/20/21 9:27:00 SIGNAL ENGINEER, Duration: 30 day, Stop date: 07/20/21 9:00:00 SIGNAL ENGINEER cefdinir 2020-08 No Notes: Memoria 1-14 (Same As: l 00:00: Omnicef) dicyclomine 2020-08 No 20 mg = 2 M emoria 10 mg oral -13 cap, PO, l capsule 19:13: QID, 0 Refill(s) OXcarbazepi 2020-08 No 300 mg = 1 Memoria ne 300 mg -13 tab, PO, l oral tablet 19:12: ONCE, 0 Her Refill(s) Hydroxyzine 2020-08 No 25 mg, PO, Memoria -13 ONCE, 0 l 19:11: Refill(s) montelukast 2020-08 No 10 mg = 1 M emoria 10 mg oral -13 tab, PO, l tablet 19:09: Daily, 0 [place] 00 Refill(s) Breo 2020-08 No 1 puff, Memoria Ellipta 200 -13 INHALATION l mcg-25 19:08: , Daily, 0 Honey nn mcg/inh 00 Refill(s) inhalation powder fluticasone 2020-08 Yes INHALATION Memoria propionate -13 , 0 l 19:08: Refill(s) levocetiriz 2020-08 No PO, QPM, 0 Memoria ine 1-13 Refill(s) l 19:07: lamotrigine 2020-08 No 100 mg = 1 Memoria 100 MG Oral 1-13 tab, PO, l Tablet 19:07: BID, 0 [place] 00 Refill(s) olopatadine 2020-08 Yes 1 drp, Deandre lesa 2 MG/ML 1-13 Daily, 0 l Ophthalmic 19:06: Refill(s) [place] Solution 00 lamotrigine 2020-08 No 100 mg = 1 Memoria 100 MG Oral 1-13 tab, PO, l Tablet 19:05: Daily, 0 00 Refill(s) QUEtiapine 2020-08 No 25 mg = 1 Me moria 25 mg oral 1-13 tab, PO, l tablet 19:04: Bedtime, # Honey nn 00 30 tab, 1 Refill(s) meloxicam 2020-08 No 15 mg = 1 Mem oria 15 mg oral 1-13 tab, PO, l tablet 18:53: Daily, # [place] 00 30 tab, 0 Refill(s) Magnesium 2020-08 No Notes: Memori a Sulfate 1-13 WASTE: F/P l 14:40: - Sink; E - Municipal Trash Bin Coreg 2020-08 No Notes: Memoria 1-12 Give with l 23:11: food. (Same As: Coreg) Magnesium 2020-08 No Notes: Memori a Sulfate 1-12 WASTE: F/P l 14:57: - Sink; E - Municipal Trash Bin potassium 2020-08 No Notes: Memori a chloride 20 -12 (Same as: l mEq oral 14:57: K-Dur 20) , "Do Not extended Crush" release Give with (KCL) food and full glass of water For patients unable to swallow tablet, dissolve in one half glass of water. Allow about 2 minutes for the tablets to disintegra te. Stir before giving to prepare slurry and administer . Please exclude Patient s with feeding tube less than 14 [place] (Dobhoff, J-tube etc) and pediatric and patients. Potassium 2020-08 No Notes: Memori a Chloride 1-11 Infuse at l 16:00: a rate of 10 mEq/hr. (Same as: KCL) Magnesium 2020-08 No Notes: Memori a Sulfate 1-11 WASTE: F/P l 15:20: - Sink; E - Municipal Trash Bin Potassium 2020-08 No 30 mEq, Memor ia Chloride 1-11 Route: IV, l 15:20: ONCE, Dosing Weight 63.773, kg, Start date: 06/17/21 9:20:00 SIGNAL ENGINEER, Stop date: 06/17/21 9:20:00 SIGNAL ENGINEER Albuterol 2020-08 No Notes: Memori a 0.833 MG/ML -11 (Same as: l / 04:11: Duoneb) [place] Ipratropium 00 [place] 0.167 MG/ML Inhalant Solution [DuoNeb] Potassium 2020-08 No Notes: Memori a Chloride 1-10 Infuse at l 15:00: a rate of [place] 00 10 mEq/hr. (Same as: KCL) sennosides, 2020-08 No Notes: Deandre lesa HALF-WAY 1-10 (Same as: l 03:00: Senokot) [place] 00 Acetaminoph 2020-08 No 1 tab, PO, Memoria en 325 MG / 1-10 Q4H, PRN l Hydrocodone 00:42: Pain, # 30 [place] Bitartrate 00 tab, 0 10 MG Oral Refill(s) Tablet Zoloft 2020-08 No 25 mg, PO, Memor ia 1-10 Daily, 0 l 00:41: Refill(s) [place] 00 benztropine 2020-08 No 1 mg = 1 Me moria 1 mg oral 1-10 tab, PO, l tablet 00:40: BID, # 60 Adin n 00 tab, 0 Refill(s) escitalopra 2020-08 Yes 20 mg = 1 M emoria m 20 mg 1-10 tab, PO, l oral tablet 00:39: Daily, # [place] 00 30 tab, 0 Refill(s) Amphetamine 2020-08 No 10 mg = 1 M emoria Sulfate 10 1-10 tab, PO, l MG 00:38: QAM, 0 [place] Disintegrat 00 Refill(s) ing Oral Tablet [Evekeo] benztropine 2020-08 No 0.5 mg = 1 Memoria 0.5 mg oral 1-10 tab, PO, l tablet 00:37: Daily, # [place] 00 30 tab, 0 Refill(s) Trazodone 2020-08 No 50 mg, PO, Me moria 1-10 BID, 0 l 00:36: Refill(s) [place] 00 FLUoxetine 2020-08 No 20 mg = 1 Me moria 20 mg oral 1-10 tab, PO, l tablet 00:36: Daily, # [place] 00 30 tab, 0 Refill(s) FLUoxetine 2020-08 No 40 mg = 1 Me moria 40 mg oral 1-10 cap, PO, l capsule 00:35: Daily, # Adin n 00 30 cap, 0 Refill(s) escitalopra 2020-08 No 5 mg = 1 Me moria m 5 mg oral 1-10 tab, PO, l tablet 00:34: Daily, # [place] 00 30 tab, 0 Refill(s) Lidocaine 2020-08 No 1 appl, Memor ia Viscous 2% 1-10 TOP, QID, l mucous 00:33: PRN Mouth Adin n membrane 00 Pain, # 15 solution mL, 0 Refill(s) ARIPiprazol 2020-08 No 6 mg = 3 Me moria e 2 mg oral 1-10 tab, PO, l tablet 00:32: Daily, # [place] 00 90 tab, 0 Refill(s) minocycline 2020-08 No 100 mg = 1 Memoria 100 mg oral 1-10 cap, PO, l capsule 00:31: Q12H, # 20 Herm louise 00 cap, 0 Refill(s) MethylPREDN 2020-08 No See Memori a ISolone 1-10 Instructio l Dose Pack 4 00:30: ns, PO, Her clark mg oral 00 Daily, Use tablet as directed on label., # 21 tab, 0 Refill(s) sertraline 2020-08 No 25 mg = 1 Me moria 25 mg oral 1-10 tab, PO, l tablet 00:29: Daily, # [place] 00 30 tab, 1 Refill(s) amoxicillin 2020-08 No 875 mg = 1 Memoria 875 mg oral 1-10 tab, PO, l tablet 00:28: Q12H, # 20 Honey nn 00 tab, 0 Refill(s) Dextrose 5% 2020-08 No 1,000 mL, M emoria in Water IV 08-15 Rate: 75 l 1,000 mL 21:02: ml/hr, [place] Infuse over: 13.3 hr, Route: IV, Dosing Weight 63.773 kg, Total Volume: 1,000, Start date: 06/15/21 15:02:00 SIGNAL ENGINEER, Duration: 30 day, Stop date: 07/15/21 15:01:00 SIGNAL ENGINEER, BSA: 1.74 m2, 0 Hydralazine 2020-08 No Notes: Deandre lesa 08-15 (Same as: l 17:37: Apresoline ) Push over 5 minutes Folic Acid 2020-08 No Notes: Memor ia 08-15 (Same as: l 15:00: Folvite) multivitami 2020-08 No Notes: Deandre lesa n 08-15 (Same l 15:00: as:One Tab Daily, Tab-A-Sandi + Beta Carotene) Give with food. Thiamine 2020-08 No Notes: Memoria 08-15 (Same As: l 15:00: Vitamin B1) D5NS 1,000 2020-08 No 1,000 mL, Me moria mL 08-15 Rate: 200 l 10:29: ml/hr, Infuse over: 5 hr, Route: IV, Dosing Weight 63.773 kg, Total Volume: 1,000, Start date: 06/15/21 4:29:00 SIGNAL ENGINEER, Duration: 30 day, Stop date: 07/15/21 4:28:00 SIGNAL ENGINEER, BSA: 1.74 m2, 0 Ceftriaxone 2020-08 No Notes: Deandre lesa 08-15 (Same As: l 06:00: Rocephin). Use with 100 mL NS and infuse over 30 min MEDICATION WASTE Product Size: 1000 mg Product Wasted: ___ mg Ceftriaxone 2020-08 No Notes: Deandre lesa 08-15 (Same As: l 05:00: Rocephin). Use with 100 mL NS and infuse over 30 min MEDICATION WASTE Product Size: 1000 mg Product Wasted: ___ mg normal 2020-08 No 1,000 mL, Memori a saline 0.9% 08-15 Rate: 200 l IV 1,000 mL 04:53: ml/hr, Infuse over: 5 hr, Route: IV, Dosing Weight 63.773 kg, Total Volume: 1,000, Start date: 06/14/21 22:53:00 SIGNAL ENGINEER, Duration: 30 day, Stop date: 07/14/21 22:52:00 SIGNAL ENGINEER, BSA: 1.74 m2, 0 Dextrose 2020-08 No 12.5 gm, Memor ia 50% Syringe 08-15 25 mL, l (D50W) 04:38: Route: [place] 00 IVP, Drug Form: INJ, Dosing Weight 63.773, kg, PRN, PRN Blood Glucose Results, Start date: 06/14/21 22:38:00 SIGNAL ENGINEER, Duration: 30 day, Stop date: 07/14/21 22:37:00 SIGNAL ENGINEER, 0 Glucagon 2020-08 No 1 mg, Memoria 08-15 Route: IM, l 04:38: Drug form: [place] 00 PDR/INJ, PRN, Dosing Weight 63.773, kg, PRN Blood Glucose Results, Start date: 06/14/21 22:38:00 SIGNAL ENGINEER, Duration: 30 day, Stop date: 07/14/21 22:37:00 SIGNAL ENGINEER, 0 Ondansetron 2020-08 No Notes: Deandre lesa 08-15 (Same as: l 04:38: Zofran) MEDICATION WASTE Product Size: 4 mg Product Wasted: ___ mg Melatonin 2020-08 No Notes: Memori a 08-15 (Same as: l 04:38: Melatonin) Acetaminoph 2020-08 No Notes: Do M emoria en 08-15 not exceed l 04:38: 4 gm/day. (Same as: Tylenol) Potassium 2020-08 No Notes: Memori a Chloride 08-15 (Same as: l 04:38: K-Dur 20) "Do Not Crush" Give with food and full glass of water For patients unable to swallow tablet, dissolve in one half glass of water. Allow about 2 minutes for the tablets to disintegra te. Stir before giving to prepare slurry and administer . Please exclude Patient s with feeding tube less than 14 [place] (Dobhoff, J-tube etc) and pediatric and patients. potassium 2020-08 No Notes: Memori a phosphate-s 08-15 (Same as: l odium 04:38: Phos-NaK) [place] phosphate 00 Each 1.5 250 mg-280 gm pkt has mg-160 mg 250mg oral powder phosphorou for s. Mix reconstitut w/2.5oz ion water and stir. potassium 2020-08 No Notes: Memori a phosphate 08-15 (Same as: l 04:38: K [place] 00 Phosphate. ) Do not infuse phosphorou s concurrent ly in the same line as TPN or IVF that contains calcium. For double lumen central lines, phosphorou s may be infused in a separate lumen from TPN. 1 mMol phoshate has 1.47 mEq potassium Infuse over 4 hours sodium 2020-08 No Notes: [facility] phosphate 08-15 Infuse l 04:38: over 4 [place] 00 hour. Do not infuse phosphorou s concurrent ly in the same line as TPN or IVF that contains calcium. For double lumen central lines, phosphorou s may be infused in a separate lumen from TPN. Magnesium 2020-08 No Notes: Mem[facility] a Sulfate 08-15 WASTE: F/P l 04:38: - Sink; E [place] 00 - Municipal Trash Bin Magnesium 2020-08 No Notes: [facility] a Oxide 08-15 (Same as: l 04:38: Mag-Ox [place] 400) Magnesium oxide 163nh=676m g elemental magnesium Dose=____m g magnesium oxide (___mg elemental magnesium) Calcium 2020-08 No Notes: [facility] Gluconate 08-15 WASTE: F/P l 04:38: - Sink; E - Municipal Trash Bin Lorazepam 2020-08 No Notes: [facility] a 08-15 (Same as: l 04:36: Ativan) [place] 00 Sodium 2020-08 No 1,000 mL, [facility] a Chloride 08-15 Rate: 100 l 0.9% IV 04:36: ml/hr, [place] 1,000 mL + 00 Infuse M.V.I.-12 over: 10.1 10 mL Daily hr, Route: + folic IV, Dosing acid IV 1 Weight mg Daily + 63.773 kg, thiamine IV Total 1 Volume: 1,011.2, Start date: 06/14/21 22:36:00 SIGNAL ENGINEER, Duration: 1 doses or times, Stop date: 06/15/21 8:41:00 SIGNAL ENGINEER, BSA: 1.74 m2, 0 Ativan 2020-08 No 2 mg, [facility] 08-15 Route: l 02:18: IVP, Drug form: INJ, ONCE, Dosing Weight 63.636, kg, Start date: 06/14/21 20:18:00 SIGNAL ENGINEER, Stop date: 06/14/21 20:18:00 SIGNAL ENGINEER Ativan 2020-08 No Notes: [facility] 1-09 (Same as: l 02:13: Ativan) [place] 00 normal 2020-08 No 1,000 mL, Memori a saline 0.9% 09 1,000 l (Bolus) IV 00:28: ml/hr, Honey nn 00 Infuse Over: 1 hr, Route: IV, 1,000, Drug form: INJ, ONCE, Priority: STAT, Dosing Weight 63.636 kg, Start date: 06/14/21 18:28:00 SIGNAL ENGINEER, Stop date: 06/14/21 18:28:00 SIGNAL ENGINEER, 0 Sodium No 1,000 mL, [facility] a Chloride 18 Rate: 75 l 0.9% IV 12:11: ml/hr, [place] 1,000 mL 00 Infuse over: 13.3 hr, Route: IV, Dosing Weight 75 kg, Total Volume: 1,000, Start date: 01/22/21 7:11:00 CDT, Duration: 1 day, Stop date: 01/23/21 7:10:00 CDT, BSA: 1.87 m2, 0 omeprazole Yes 40 mg = 1 Me moria 40 mg oral 6-16 cap, PO, l delayed 20:37: QAM [place] release 00 capsule Azelastine Yes 137 [facility] hydrochlori 6-16 microgram l de 0.137 20:36: =, [place] MG/ACTUAT 00 INHALER, Metered BID, PRN Dose Nasal Congestion [place] | 1-2 [Astelin] sprays Albuterol Yes 2 puff, Memor ia (Eqv-ProAir 6-16 INHALATION l HFA) 90 20:36: , Q6H, PRN Herm louise mcg/inh 00 Wheezing inhalation aerosol simvastatin Yes 20 mg = 1 M emoria 20 mg oral 6-16 tab, PO, l tablet 20:36: Bedtime [place] 00 levocetiriz Yes 5 mg = 1 Me moria ine 6-16 tab, PO, l dihydrochlo 20:35: QAM Adin n ride 5 MG 00 Oral Tablet [Xyzal] Clonidine Yes 0.1 mg = 1 Me moria Hydrochlori 6-16 tab, PO, l de 0.1 MG 20:35: QAM [place] Oral Tablet 00 losartan 50 Yes 50 mg = 1 M emoria mg oral 6-16 tab, PO, l tablet 20:35: Daily montelukast Yes 10 mg = 1 M emoria 10 MG Oral 6-16 tab, PO, l Tablet 20:35: Daily [place] [Singulair] 00 Acetaminoph Yes 1 tab, PO, Memoria en 325 MG / 6-16 Q6H, PRN l Hydrocodone 20:34: Pain Score [place] Bitartrate 00 7-10, 0 5 MG Oral Refill(s) Tablet dicyclomine Yes 20 mg = 2 M emoria 10 mg oral 6-16 cap, PO, l capsule 20:34: TID Home No Refill(s) [facility] Medication 6-16 0 l 20:34: ibuprofen Yes 600 mg = 1 Me moria 600 mg oral 5-23 tab, PO, l tablet 21:36: Q6H, PRN Pain, take with food, X 7 day, # 21 tab, 0 Refill(s) potassium Yes 40 mEq = 2 Me moria chloride 20 5-23 tab, PO, l mEq oral 21:35: Daily, # 4 Her clark tablet, 00 tab, 0 extended Refill(s) release (KCL) Potassium No Notes: [facility] a Chloride 5-23 (Same as: l 21:31: K-Dur 20) "Do Not Crush" Give with food and full glass of water For patients unable to swallow tablet, dissolve in one half glass of water. Allow about 2 minutes for the tablets to disintegra te. Stir before giving to prepare slurry and administer . Please exclude Patient s with feeding tube less than 14 [place] (Dobhoff, J-tube etc) and pediatric and patients. Acetaminoph No Notes: Max [facility] en 5-23 acetaminop l 20:49: hen 4000 [place] 00 mg/day (4 gm/day). (Same as: Tylenol Extra Strength) Ketorolac No 4 days Memor ia 5-23 l 20:49: MEDICATION [place] 00 WASTE Product Size: 30 mg Product Wasted: ___ mg Sodium No 1,000 mL, [facility] a Chloride 5- 1000 l 0.9% 18:48: ml/hr, [place] (Bolus) IV 00 Infuse Over: 1 hr, Route: IV, 1,000, Drug form: INJ, ONCE, Priority: STAT, Dosing Weight 76.4 kg, Start date: 12/27/20 13:48:00 CDT, Stop date: 12/27/20 13:48:00 CDT, 0 escitalopra Yes Ryan 1 tab(s) Memoria m 2-09 Brown l 00:00: [place] 00 trazodone 0 Yes Ryan 1 tab(s) M emoria 2-09 Brown l 00:00: [place] 00 clonidine 2017-0 Yes Ryan 1 tab(s) M emoria 2-09 Brown l 00:00: [place] 00 valsartan 0 Yes Ryan 1 tab(s) M emoria 2-09 Brown l 00:00: [place] 00 lamotrigine 0 Yes Ryan 1 tab(s) Memoria 2-09 Brown l 00:00: [place] 00 carvedilol 0 Yes Ryan 1 tab(s) [facility] 2-09 Brown l 00:00: [place] 00 Vital Signs Vital Name Observation Time Observation Value Comments Source Respitory Rate 2021-07-24 02:31:00 [facility] al [place] Temperature Oral (F) 2021-07-23 22:00:00 98.4 F [facility] [place] Respitory Rate 2021-07-23 22:00:00 [facility] [place] Systolic (mm Hg) 2021-07-23 22:00:00 Deandre rial [place] Diastolic (mm Hg) 2021-07-23 22:00:00 Mem orial [place] Temperature Oral (F) 2021-07-23 18:00:00 98.2 F [facility] [place] Heart Rate 2021-07-23 18:00:00 [facility] [place] Systolic (mm Hg) 2021-07-23 18:00:00 Deandre rial [place] Diastolic (mm Hg) 2021-07-23 18:00:00 Mem orial [place] Heart Rate 2021-07-23 14:50:00 [facility] [place] Temperature Oral (F) 2021-07-23 14:50:00 98.5 F [facility] [place] Respitory Rate 2021-07-23 14:50:00 [facility] al [place] Systolic (mm Hg) 2021-07-23 14:50:00 Deandre rial [place] Diastolic (mm Hg) 2021-07-23 14:50:00 Mem orial [place] Height 2021-07-22 02:47:00 165.1 cm [facility] [place] Weight 2021-07-22 02:47:00 [facility] [place] BMI Calculated 2021-07-22 02:47:00 [facility] al [place] Height 2021-07-21 23:52:00 170.18 cm [facility] [place] BMI Calculated 2021-07-21 23:52:00 [facility] al [place] Weight 2021-07-21 23:52:00 [facility] [place] Heart Rate 2021-07-21 21:20:00 [facility] [place] Heart Rate 2021-06-22 01:31:38 [facility] [place] Temperature Oral (F) 2021-06-22 01:31:26 99.2 F [facility] [place] Systolic (mm Hg) 2021-06-22 01:30:04 Deandre rial [place] Diastolic (mm Hg) 2021-06-22 01:30:04 Mem orial [place] Heart Rate 2021-06-22 01:30:04 [facility] [place] Respitory Rate 2021-06-22 00:28:00 Mem[facility] al [place] Systolic (mm Hg) 2021-06-22 00:02:00 Deandre rial [place] Diastolic (mm Hg) 2021-06-22 00:02:00 Mem orial [place] Heart Rate 2021-06-22 00:02:00 [facility] [place] Temperature Oral (F) 2021-06-22 00:02:00 97.1 F [facility] [place] Systolic (mm Hg) 2021-06-21 22:10:35 Deandre rial [place] Diastolic (mm Hg) 2021-06-21 22:10:35 Mem orial [place] Temperature Oral (F) 2021-06-21 22:10:17 98.6 F [facility] [place] Heart Rate 2021-06-21 04:48:57 [facility] [place] Systolic (mm Hg) 2021-06-21 04:48:49 Deandre rial [place] Diastolic (mm Hg) 2021-06-21 04:48:49 Mem orial [place] Heart Rate 2021-06-21 04:48:49 [facility] [place] Temperature Oral (F) 2021-06-21 04:48:32 98.5 F [facility] [place] Respitory Rate 2021-06-21 02:17:00 [facility] al [place] Temperature Oral (F) 2021-06-21 02:09:00 98.7 F [facility] [place] Heart Rate 2021-06-21 01:06:20 [facility] [place] Temperature Oral (F) 2021-06-21 01:06:20 90.7 F [facility] [place] Systolic (mm Hg) 2021-06-21 01:05:22 Deandre rial [place] Diastolic (mm Hg) 2021-06-21 01:05:22 Mem orial [place] Systolic (mm Hg) 2021-06-20 22:17:53 Deandre rial [place] Diastolic (mm Hg) 2021-06-20 22:17:53 Mem orial [place] Respitory Rate 2021-06-20 16:59:00 [facility] [place] Respitory Rate 2021-06-19 12:50:00 [facility] al [place] Height 2021-06-15 02:38:00 167.64 cm [facility] [place] Weight 2021-06-15 02:38:00 [facility] [place] BMI Calculated 2021-06-15 02:38:00 [facility] [place] Height 2021-06-14 22:06:00 167.64 cm [facility] [place] BMI Calculated 2021-06-14 22:06:00 [facility] al [place] Weight 2021-06-14 22:06:00 [facility] [place] Respitory Rate 2021-01-22 16:25:00 [facility] al [place] Systolic (mm Hg) 2021-01-22 16:25:00 Deandre rial [place] Diastolic (mm Hg) 2021-01-22 16:25:00 Mem orial [place] Respitory Rate 2021-01-22 16:10:00 [facility] al [place] Systolic (mm Hg) 2021-01-22 16:10:00 Deandre rial [place] Diastolic (mm Hg) 2021-01-22 16:10:00 Mem orial [place] Respitory Rate 2021-01-22 15:55:00 [facility] al [place] Systolic (mm Hg) 2021-01-22 15:55:00 Deandre rial [place] Diastolic (mm Hg) 2021-01-22 15:55:00 Mem orial [place] Heart Rate 2021-01-22 14:13:00 [facility] [place] Height 2021-01-22 13:11:00 165.1 cm [facility] [place] Weight 2021-01-22 13:11:00 [facility] [place] BMI Calculated 2021-01-22 13:11:00 [facility] al [place] Height 2021-01-20 20:27:00 165.1 cm [facility] [place] Weight 2021-01-20 20:27:00 [facility] [place] BMI Calculated 2021-01-20 20:27:00 [facility] al [place] Systolic (mm Hg) 2020-12-27 22:19:00 Deandre rial [place] Diastolic (mm Hg) 2020-12-27 22:19:00 Mem orial [place] Heart Rate 2020-12-27 22:19:00 [facility] [place] Respitory Rate 2020-12-27 22:19:00 Memori al [place] Heart Rate 2020-12-27 21:09:00 [facility] [place] Systolic (mm Hg) 2020-12-27 21:09:00 Deandre rial [place] Diastolic (mm Hg) 2020-12-27 21:09:00 Mem orial [place] Heart Rate 2020-12-27 20:23:00 [facility] [place] Systolic (mm Hg) 2020-12-27 20:23:00 Deandre rial [place] Diastolic (mm Hg) 2020-12-27 20:23:00 Mem orial [place] Respitory Rate 2020-12-27 20:23:00 Memori al [place] Height 2020-12-27 17:16:00 165.1 cm [facility] [place] BMI Calculated 2020-12-27 17:16:00 Mem[facility] al [place] Weight 2020-12-27 17:16:00 [facility] [place] Respitory Rate 2020-12-27 17:16:00 Elisa al [place] Temperature Oral (F) 2020-12-27 17:16:00 98.2 F [facility] [place] Diastolic (mm Hg) 2016-09-15 16:00:00 Mem tushar [place] Systolic (mm Hg) 2016-09-15 16:00:00 Deandre Chung Weight 2016-09-15 16:00:00 [facility] [place] Height 2016-09-15 16:00:00 [facility] [place] Procedures Procedure Date / Time Performed Performing Clinician Sourcrystal e Breast reduction, [facility] Honey nn bilateral Encounters Start End Encounter Admission Attending Care Care Encounter Source Date/Time Date/Time Type Type Clinicians Facility Department ID 2021-02-22 Outpatient SYDNEY ALVAREZ [facility] [id number] [place] 01:04:31 Health 2021-07-21 2021-07-24 Inpatient [facility] [id number] Memoria 21:04:07 03:49:00 r [place] 03 l [facility] 2021-07-21 2021-07-23 Inpatient E FRANHCESCA RG MED [id number] [facility] 19:22:00 21:49:00 EDDIE 2021-07-21 2021-07-23 Outpatient ALEJANDRO Rg MHPL [id number] 15:04:07 21:49:00 Eddie 03 [facility] 2021-07-21 2021-07-[address] [id number] 15:04:07 21:49:00 Eddie 03 [facility] 2021-06-14 2021-06-22 Inpatient [facility] [id number] Memoria 22:02:27 05:22:00 r [place] 02 l [facility] 2021-06-15 2021-06-21 Inpatient E ASHLEY FOWLER MED [id number] 11:36:00 23:22:00 MOHAMMED [facility] 2021-06-14 2021-06-21 Outpatient ASHLEY Fowler [place] [id number] 16:02:27 23:22:00 Robejulia Grimes 2021-06-14 2021-06-14 Outpatient ASHLEY Fowler [facility] [id number] 16:02:27 16:02:27 Robe 02 Faiz 2021-01-22 2021-01-22 Bedded nullFlavo [facility] [id number] Memoria 13:04:00 16:31:00 Outpatient r [place] 01 l [facility] 2021-01-22 2021-01-22 Outpatient ANTONIO, SYDNEY MHBL MED [id number] MHBL 08:04:00 11:31:00 2021-01-22 2021-01-22 Outpatient Antonio, Sydney MHPL MHPL [id number] 08:04:00 11:31:00 2021-01-22 2021-01-22 Outpatient Antonio, Sydney MANZOPL [facility]PL [id number] 08:04:00 11:31:00 2021-01-07 2021-01-08 Outpt Diag nullFlavo [facility] [id number] Memoria 14:07:00 04:59:[address] [facility] 04 l Aleja Adin Potts 2021-01-07 2021-01-07 Outpatient Sandy, [id number] 09:07:00 23:59:00 Jacquin A [id number] 2021-01-06 2021-01-06 EXT [facility] OP Sandy, EXT MSRDP [id number] [place] 00:00:00 00:00:00 Darline Louise LOCATION [id number] Health [id number] 2021-01-06 2021-01-06 EXT [facility] OP Sandy, EXT MSRDP [id number] [place] 00:00:00 [facility]:00:[facility] LOCATION [id number] Health [id number] 2020-12-27 2020-12-27 [id number] Mem[facility] 17:13:08 22:29:00 r [place] 00 l [facility] 2020-12-27 2020-12-27 Outpatient JOVANY AguilarPL [facility] [id number] 12:13:08 17:29:00 Norah Vital 2020-12-27 2020-12-27 Emergency E SAMANTA BL MHBL [id number] MHBL 12:13:00 17:29:00 NORAH 2018-09-07 2018-09-08 Outpt Diag nullFlavo [facility] [id number] Memoria 21:16:00 05:59:00 Services r Outpatient 02 l [facility] 2018-09-07 2018-09-07 Outpatient Marcello Ferro [facility] [id number] 15:16:00 23:59:00 Pascual 2018-09-07 2018-09-07 Outpatient Marcello Ferro [facility] [id number] 15:16:00 23:59:00 Pascual 2016-09-15 2016-09-15 Unknown nullFlavo Comprehensi [id number] Memoria 16:00:00 16:00:00 r ve Heart [id number] Care PA [id number] [facility] [id number] 2016-09-15 2016-09-15 Outpatient Comprehen Comprehensi [id number] eClinic 10:00:00 10:00:00 sive ve Heart alWor vt Heart Care PA Care PA 2016-08-12 2016-08-13 Outpt Diag nullFlavo [facility] [id number] Memoria 17:37:00 05:59:00 Services r Outpatient 01 l [facility] 2016-08-12 2016-08-12 Outpatient De [facility] [id number] 11:37:00 23:59:00 Kabekode 01 Elaina Results Test Description Test Time Test Comments Results Result Comments Source CHEM PANEL 2021-07-23 16:28:00 Test Item Value Reference Range Interpretation Comme nts Magnesium Lvl (test code = Magnesium Lvl) 1.3 1.8-2.4 [id number] 16:28:00 Test Item Value Reference Range Interpretation Comments Potassium Lvl (test code = Potassium 4.2 3.5-5.1 Lvl) [facility] [id number] 10:39:00 Test Item Value Reference Range Interpretation Comments Glucose Lvl (test code = Glucose Lvl) 103 70-99 [facility]2021-12-17 10:39:00 Test Item Value Reference Range Interpretation Comments BUN (test code = BUN) 5 7-22 [facility]2021-12-17 10:39:00 Test Item Value Reference Range Interpretation Comments Creatinine Lvl (test code = Creatinine 0.50 0.50-1.40 Lvl) [facility]2021-12-17 10:39:00 Test Item Value Reference Range Interpretation Comments Sodium Lvl (test code = Sodium Lvl) 143 135-145 [facility]2021-12-17 10:39:00 Test Item Value Reference Range Interpretation Comments Potassium Lvl (test code = Potassium 3.0 3.5-5.1 Lvl) [facility]2021-12-17 10:39:00 Test Item Value Reference Range Interpretation Comments Chloride Lvl (test code = Chloride Lvl) 111 95-109 [facility]2021-12-17 10:39:00 Test Item Value Reference Range Interpretation Comments CO2 (test code = CO2) 25 24-32 [facility]2021-12-17 10:39:00 Test Item Value Reference Range Interpretation Comments AGAP (test code = AGAP) 10.0 10.0-20.0 [facility]2021-12-17 10:39:00 Test Item Value Reference Range Interpretation Comments Calcium Lvl (test code = Calcium Lvl) 7.7 8.5-10.5 [facility]2021-12-17 10:39:00 Test Item Value Reference Range Interpretation Comments eGFR (test code = eGFR) 109 [id number] 02:47:00 Test Item Value Reference Range Interpretation Comments MRSA by PCR (test Negative (07/21/21 8:47 code = MRSA by PCR) PM) [facility]2021-12-15 22:42:00 Test Item Value Reference Range Interpretation Comments Ammonia (test code = Ammonia) 24.0 [facility]2021-12-15 21:25:00 Test Item Value Reference Range Interpretation Comments Glucose Lvl (test code = Glucose Lvl) 149 70-99 [facility]2021-12-15 21:25:00 Test Item Value Reference Range Interpretation Comments BUN (test code = BUN) 5 7-[address]12-15 21:25:00 Test Item Value Reference Range Interpretation Comments Creatinine Lvl (test code = Creatinine 0.70 0.50-1.40 Lvl) [address]12-15 21:25:00 Test Item Value Reference Range Interpretation Comments Sodium Lvl (test code = Sodium Lvl) 143 135-[address]12-15 21:25:00 Test Item Value Reference Range Interpretation Comments Potassium Lvl (test code = Potassium 3.2 3.5-5.1 Lvl) [address]15 21:25:00 Test Item Value Reference Range Interpretation Comments Chloride Lvl (test code = Chloride Lvl) 107 95-109 [address]12-15 21:25:00 Test Item Value Reference Range Interpretation Comments CO2 (test code = CO2) 23 24-[address]12-15 21:25:00 Test Item Value Reference Range Interpretation Comments Calcium Lvl (test code = Calcium Lvl) 7.8 8.5-10.[address]12-15 21:25:00 Test Item Value Reference Range Interpretation Comments Total Protein (test code = Total 7.4 6.4-8.4 Protein) [address]12-15 21:25:00 Test Item Value Reference Range Interpretation Comments Albumin Lvl (test code = Albumin Lvl) 3.1 3.5-5.[address]12-15 21:25:00 Test Item Value Reference Range Interpretation Comments ALT (test code = ALT) 35 See_Comment [Auto mated message] The system which ge nerated this result transmit nieves reference range : <=65. The reference range was not used to interpr et this result as bhavna l/abnormal. [place] [id number] 21:25:00 Test Item Value Reference Range Interpretation Comments AST (test code = AST) 111 See_Comment [Auto mated message] The system which ge nerated this result transmit nieves reference range : <=37. The reference range was not used to interpr et this result as bhavna l/abnormal. [place] [id number] 21:25:00 Test Item Value Reference Range Interpretation Comments Alk Phos (test code = Alk Phos) 70 39-136 [facility] [id number] 21:25:00 Test Item Value Reference Range Interpretation Comments Bili Total (test code = Bili Total) 3.1 0.2-1.3 [facility] [id number] 21:25:00 Test Item Value Reference Range Interpretation Comments AGAP (test code = AGAP) 16.2 10.0-20.0 [facility] [id number] 21:25:00 Test Item Value Reference Range Interpretation Comments B/C Ratio (test code = B/C Ratio) 7 1 6-25 [facility] [place] [id number] 21:25:00 Test Item Value Reference Range Interpretation Comments Globulin (test code = Globulin) 4.3 2.7-4.2 [facility] [id number] 21:25:00 Test Item Value Reference Range Interpretation Comments A/G Ratio (test code = A/G Ratio) 0.7 1 0.7-1.6 [facility] [id number] 21:25:00 Test Item Value Reference Range Interpretation Comments eGFR (test code = eGFR) 97 [facility]DRESS[facility] [id number] 21:25:00 Test Item Value Reference Range Interpretation Comments U Amph Scr (test code Negative *NA*(07/21/21 = U Amph Scr) 3:25 PM) [facility]woodCazoodleDRUG [id number] 21:25:00 Test Item Value Reference Range Interpretation Comments U Alida Scr (test code Negative *NA*(07/21/21 = U Alida Scr) 3:25 PM) [facility]woodann[facility] [id number] 21:25:00 Test Item Value Reference Range Interpretation Comments U Benzodiaz Scr (test Negative *NA*(07/21/21 code = U Benzodiaz Scr) 3:25 PM) [facility] [id number] 21:25:00 Test Item Value Reference Range Interpretation Comments U Cocaine Scr (test Negative *NA*(07/21/21 code = U Cocaine Scr) 3:25 PM) [facility]leDR[facility] [id number] 21:25:00 Test Item Value Reference Range Interpretation Comments U Cannab Scr (test Negative *NA*(07/21/21 code = U Cannab Scr) 3:25 PM) [facility] [id number] 21:25:00 Test Item Value Reference Range Interpretation Comments U Opiate Scr (test Negative *NA*(07/21/21 code = U Opiate Scr) 3:25 PM) [facility] [id number] 21:25:00 Test Item Value Reference Range Interpretation Comments U Phencyclidine Scr (test Negative code = U Phencyclidine *NA*(07/21/21 3:25 Scr) PM) [facility] [id number] 21:25:00 Test Item Value Reference Range Interpretation Comments UDS Note (test code = See Note *NA*(07/21/21 UDS Note) 3:25 PM) [facility] [id number] 21:25:00 Test Item Value Reference Range Interpretation Comments WBC (test code = WBC) 8.8 3.7-10.4 [facility] [id number] 21:25:00 Test Item Value Reference Range Interpretation Comments RBC (test code = RBC) 3.24 4.20-5.40 [facility] [id number] 21:25:00 Test Item Value Reference Range Interpretation Comments Hgb (test code = Hgb) 11.3 12.0-16.0 [facility] CenterQjnbdepIJQSXDINSP6512-14-04 21:25:00 Test Item Value Reference Range Interpretation Comments Hct (test code = Hct) 32.5 36.0-48.0 [facility] CenterFminpkmWCJIAJBSVK0522-30-22 21:25:00 Test Item Value Reference Range Interpretation Comments MCV (test code = MCV) 100.4 80.0-98.0 [id number] 21:25:00 Test Item Value Reference Range Interpretation Comments MCH (test code = MCH) 34.8 pg 27.0-31.0 [id number] 21:25:00 Test Item Value Reference Range Interpretation Comments MCHC (test code = MCHC) 34.7 32.0-36.0 [facility] [id number] 21:25:00 Test Item Value Reference Range Interpretation Comments RDW (test code = RDW) 14.5 11.5-14.5 [place] [id number] 21:25:00 Test Item Value Reference Range Interpretation Comments Platelet (test code = Platelet) 96 133-450 [place] [id number] 21:25:00 Test Item Value Reference Range Interpretation Comments MPV (test code = MPV) 7.3 7.4-10.4 [place] [id number] 21:25:00 Test Item Value Reference Range Interpretation Comments Segs (test code = Segs) 44.1 45.0-75.0 [place] [id number] 21:25:00 Test Item Value Reference Range Interpretation Comments Lymphocytes (test code = Lymphocytes) 49.5 20.0-40.0 [place] [id number] 21:25:00 Test Item Value Reference Range Interpretation Comments Monocytes (test code = Monocytes) 4.1 2.0-12.0 [place] [id number] 21:25:00 Test Item Value Reference Range Interpretation Comments Eosinophils (test code = 1.0 See_Comment [A utomated message] The Eosinophils) system which ge nerated this result tra nsmitted reference range : <=4.0. The reference r mazin was not used to int erpret this result as normal/abnormal . [place] [id number] 21:25:00 Test Item Value Reference Range Interpretation Comments Basophils (test code = 1.3 See_Comment [Aut omated message] The Basophils) system which ge nerated this result tra nsmitted reference range : <=1.0. The reference r mazin was not used to int erpret this result as normal/abnormal . [place] [id number] 21:25:00 Test Item Value Reference Range Interpretation Comments Neutrophils # (test code = Neutrophils 3.9 1.5-8.1 #) [place] [id number] 21:25:00 Test Item Value Reference Range Interpretation Comments Lymphocytes # (test code = Lymphocytes 4.4 1.0-5.5 #) [place] [address]-12-15 21:25:00 Test Item Value Reference Range Interpretation Comments Monocytes # (test code 0.4 See_Comment [Aut omated message] The = Monocytes #) system which generated this result tra nsmitted reference range : <=0.8. The reference r mazin was not used to int erpret this result as normal/abnormal . [id number] 21:25:00 Test Item Value Reference Range Interpretation Comments Eosinophils # (test code 0.1 See_Comment [A utomated message] The = Eosinophils #) system whic h generated this result tra nsmitted reference range : <=0.5. The reference r mazin was not used to int erpret this result as normal/abnormal . [facility]wo[id number] 21:25:00 Test Item Value Reference Range Interpretation Comments Basophils # (test code 0.1 See_Comment [Aut omated message] The = Basophils #) system which generated this result tra nsmitted reference range : <=0.2. The reference r mazin was not used to int erpret this result as normal/abnormal . [facility]Gk[facility]ijtEHWWPUWUPI0643-00-85 21:25:00 Test Item Value Reference Range Interpretation Comments Coronavirus (COVID-19) Not Detected SHARIF (test code = (07/21/21 3:25 PM) Coronavirus (COVID-19) SHARIF) [facility] CenterDyqmtnqAETALGKGVX3984-69-73 21:25:00 Test Item Value Reference Range Interpretation Comments Acetaminoph Lvl (test code (07/21/21 3:25 PM) 10-20 = Acetaminoph Lvl) [facility] [id number] 21:25:00 Test Item Value Reference Range Interpretation Comments Ethanol Lvl (test code = Ethanol Lvl) 392 [id number] 21:25:00 Test Item Value Reference Range Interpretation Comments Etoh (%) (test code = Etoh (%)) 0.392 [facility] KingwoodFreaebvJMPYNTZLIW6981-52-78 21:25:00 Test Item Value Reference Range Interpretation Comments Salicylate Lvl (test <1.7 mg/dL See_Comment [Autom ated message] code = Salicylate The system which Lvl) generated this result transmitted ref erence range: <=30.0. The reference range was not used to int erpret this result as normal/abnormal . [facility] AND [id number] 21:25:00 Test Item Value Reference Range Interpretation Comments UA Color (test code = Liana *ABN*(07/21/21 UA Color) 3:25 PM) [facility] AND [id number] 21:25:00 Test Item Value Reference Range Interpretation Comments UA Turbidity (test code = Clear (07/21/21 3:25 UA Turbidity) PM) [facility] AND [id number] 21:25:00 Test Item Value Reference Range Interpretation Comments UA Spec Grav (test code = UA Spec 1.016 1 Grav) [facility] AND [id number] 21:25:00 Test Item Value Reference Range Interpretation Comments UA pH (test code = UA pH) 6.0 1 5.0-8.0 [facility] AND [id number] 21:25:00 Test Item Value Reference Range Interpretation Comments UA Protein (test code = UA Protein) 30 mg/dL [facility] AND [id number] 21:25:00 Test Item Value Reference Range Interpretation Comments UA Glucose (test code = UA Negative mg/dL Glucose) [facility] AND [id number] 21:25:00 Test Item Value Reference Range Interpretation Comments UA Ketones (test code = UA Negative mg/dL Ketones) [facility] AND [id number] 21:25:00 Test Item Value Reference Range Interpretation Comments UA Bili (test code = Negative *NA*(07/21/21 UA Bili) 3:25 PM) [facility] AND [id number] 21:25:00 Test Item Value Reference Range Interpretation Comments UA Blood (test code = Negative (07/21/21 3:25 UA Blood) PM) [facility] AND [id number] 21:25:00 Test Item Value Reference Range Interpretation Comments UA Urobilinogen (test code = UA 4.0 0.1-1.0 Urobilinogen) [facility] AND [id number] 21:25:00 Test Item Value Reference Range Interpretation Comments UA Nitrite (test code Negative (07/21/21 3:25 = UA Nitrite) PM) [facility] AND [id number] 21:25:00 Test Item Value Reference Range Interpretation Comments UA Leuk Est (test Negative (12/15/21 3:25 code = UA Leuk Est) PM) [facility] [id number] 21:25:00 Test Item Value Reference Range Interpretation Comments UA Sq Epi (test code = UA Sq Epi) Few /LPF [facility] [id number] 21:25:00 Test Item Value Reference Range Interpretation Comments UA WBC (test code = 2 See_Comment [Automa nieves message] The UA WBC) system which ge nerated this result transmit nieves reference range : <=5. The reference range was not used to interpr et this result as bhavna l/abnormal. [facility] [id number] 21:25:00 Test Item Value Reference Range Interpretation Comments UA RBC (test code = 1 See_Comment [Automa nieves message] The UA RBC) system which ge nerated this result transmit nieves reference range : <=2. The reference range was not used to interpr et this result as bhavna l/abnormal. [facility] [id number] 21:25:00 Test Item Value Reference Range Interpretation Comments UA Mucus (test code = UA Mucus) Few /LPF [facility] AND [id number] 21:25:00 Test Item Value Reference Range Interpretation Comments UA Hyal Cast (test 4 See_Comment [Automat ed message] The code = UA Hyal Cast) system which generated this result transmit nieves reference range : <=2. The reference range was not used to interpr et this result as bhavna l/abnormal. [facility] [id number] 12:36:00 Test Item Value Reference Range Interpretation Comments Glucose Lvl (test code = Glucose Lvl) 110 70-99 [facility] [id number] 12:36:00 Test Item Value Reference Range Interpretation Comments BUN (test code = BUN) 7 7-22 [facility]woodVidave[facility] [id number] 12:36:00 Test Item Value Reference Range Interpretation Comments Creatinine Lvl (test code = Creatinine 0.42 0.50-1.40 Lvl) [facility] CenterWaygo [id number] 12:36:00 Test Item Value Reference Range Interpretation Comments Sodium Lvl (test code = Sodium Lvl) 141 135-145 [facility]id[facility] [id number] 12:36:00 Test Item Value Reference Range Interpretation Comments Potassium Lvl (test code = Potassium 3.6 3.5-5.1 Lvl) [place] [address]-11-15 12:36:00 Test Item Value Reference Range Interpretation Comments Chloride Lvl (test code = Chloride Lvl) 107 95-109 [place] 573441-11-15 12:36:00 Test Item Value Reference Range Interpretation Comments CO2 (test code = CO2) 22 24-32 [place] [address]-11-15 12:36:00 Test Item Value Reference Range Interpretation Comments Calcium Lvl (test code = Calcium Lvl) 8.7 8.5-10.5 [place] 573441-11-15 12:36:00 Test Item Value Reference Range Interpretation Comments AGAP (test code = AGAP) 15.6 10.0-20.0 [place] 573441-11-15 12:36:00 Test Item Value Reference Range Interpretation Comments eGFR (test code = eGFR) 115 [place] [address]-11-15 12:36:00 Test Item Value Reference Range Interpretation Comments Magnesium Lvl (test code = Magnesium 1.7 1.8-2.4 Lvl) [place] 573441-11-14 11:06:00 Test Item Value Reference Range Interpretation Comments Glucose Lvl (test code = Glucose Lvl) 103 70-99 [place] 573441-11-14 11:06:00 Test Item Value Reference Range Interpretation Comments BUN (test code = BUN) 6 7-22 [place] 573441-11-14 11:06:00 Test Item Value Reference Range Interpretation Comments Creatinine Lvl (test code = Creatinine 0.47 0.50-1.40 Lvl) [place] 573441-11-14 11:06:00 Test Item Value Reference Range Interpretation Comments Sodium Lvl (test code = Sodium Lvl) 141 135-145 [place] 573441-11-14 11:06:00 Test Item Value Reference Range Interpretation Comments Potassium Lvl (test code = Potassium 3.8 3.5-5.1 Lvl) [place] 573441-11-14 11:06:00 Test Item Value Reference Range Interpretation Comments Chloride Lvl (test code = Chloride Lvl) 110 95-109 [place] 573441-11-14 11:06:00 Test Item Value Reference Range Interpretation Comments CO2 (test code = CO2) 24 24-32 [place] 573441-11-14 11:06:00 Test Item Value Reference Range Interpretation Comments Calcium Lvl (test code = Calcium Lvl) 8.3 8.5-10.5 [place] 573441-11-14 11:06:00 Test Item Value Reference Range Interpretation Comments AGAP (test code = AGAP) 10.8 10.0-20.0 [place] 573441-11-14 11:06:00 Test Item Value Reference Range Interpretation Comments eGFR (test code = eGFR) 111 [place] 573441-11-14 11:06:00 Test Item Value Reference Range Interpretation Comments Magnesium Lvl (test code = Magnesium 1.5 1.8-2.4 Lvl) [facility]2021-11-13 09:37:00 Test Item Value Reference Range Interpretation Comments Glucose Lvl (test code = Glucose Lvl) 101 70-99 [facility]2021-11-13 09:37:00 Test Item Value Reference Range Interpretation Comments BUN (test code = BUN) 5 7-22 [place] 573441-11-13 09:37:00 Test Item Value Reference Range Interpretation Comments Creatinine Lvl (test code = Creatinine 0.42 0.50-1.40 Lvl) [facility]2021-11-13 09:37:00 Test Item Value Reference Range Interpretation Comments Sodium Lvl (test code = Sodium Lvl) 141 135-145 [facility]2021-11-13 09:37:00 Test Item Value Reference Range Interpretation Comments Potassium Lvl (test code = Potassium 3.7 3.5-5.1 Lvl) [place] 573441-11-13 09:37:00 Test Item Value Reference Range Interpretation Comments Chloride Lvl (test code = Chloride Lvl) 111 95-109 [place] 573441-11-13 09:37:00 Test Item Value Reference Range Interpretation Comments CO2 (test code = CO2) 23 24-32 [place] 573441-11-13 09:37:00 Test Item Value Reference Range Interpretation Comments Calcium Lvl (test code = Calcium Lvl) 8.2 8.5-10.5 [place] 573441-11-13 09:37:00 Test Item Value Reference Range Interpretation Comments AGAP (test code = AGAP) 10.7 10.0-20.0 [place] 573441-11-13 09:37:00 Test Item Value Reference Range Interpretation Comments eGFR (test code = eGFR) 114 [place] 573441-11-13 09:37:00 Test Item Value Reference Range Interpretation Comments Magnesium Lvl (test code = Magnesium 1.6 1.8-2.4 Lvl) [place] 082091-11-13 09:37:00 Test Item Value Reference Range Interpretation Comments WBC (test code = WBC) 3.8 3.7-10.4 [place] [address]-11-13 09:37:00 Test Item Value Reference Range Interpretation Comments RBC (test code = RBC) 2.98 4.20-5.40 [place] 082091-11-13 09:37:00 Test Item Value Reference Range Interpretation Comments Hgb (test code = Hgb) 10.8 12.0-16.0 [place] 082091-11-13 09:37:00 Test Item Value Reference Range Interpretation Comments Hct (test code = Hct) 31.9 36.0-48.0 [place] [address]-11-13 09:37:00 Test Item Value Reference Range Interpretation Comments MCV (test code = MCV) 107.2 80.0-98.0 [place] [address]-11-13 09:37:00 Test Item Value Reference Range Interpretation Comments MCH (test code = MCH) 36.3 pg 27.0-31.0 [place] [address]-11-13 09:37:00 Test Item Value Reference Range Interpretation Comments MCHC (test code = MCHC) 33.9 32.0-36.0 [place] [address]-11-13 09:37:00 Test Item Value Reference Range Interpretation Comments RDW (test code = RDW) 16.7 11.5-14.5 [place] [address]-11-13 09:37:00 Test Item Value Reference Range Interpretation Comments Platelet (test code = Platelet) 80 133-450 [place] 082091-11-13 09:37:00 Test Item Value Reference Range Interpretation Comments MPV (test code = MPV) 7.0 7.4-10.4 [place] 082091-11-13 09:37:00 Test Item Value Reference Range Interpretation Comments Segs (test code = Segs) 53.7 45.0-75.0 [place] 082091-11-13 09:37:00 Test Item Value Reference Range Interpretation Comments Lymphocytes (test code = Lymphocytes) 29.9 20.0-40.0 [place] 082091-11-13 09:37:00 Test Item Value Reference Range Interpretation Comments Monocytes (test code = Monocytes) 12.6 2.0-12.0 [place] [address]-11-13 09:37:00 Test Item Value Reference Range Interpretation Comments Eosinophils (test code = 2.7 See_Comment [A utomated message] The Eosinophils) system which ge nerated this result tra nsmitted reference range : <=4.0. The reference r mazin was not used to int erpret this result as normal/abnormal . [place] 082091-11-13 09:37:00 Test Item Value Reference Range Interpretation Comments Basophils (test code = 1.1 See_Comment [Aut omated message] The Basophils) system which ge nerated this result tra nsmitted reference range : <=1.0. The reference r mazin was not used to int erpret this result as normal/abnormal . [place] 082091-11-13 09:37:00 Test Item Value Reference Range Interpretation Comments Neutrophils # (test code = Neutrophils 2.1 1.5-8.1 #) [place] 082091-11-13 09:37:00 Test Item Value Reference Range Interpretation Comments Lymphocytes # (test code = Lymphocytes 1.1 1.0-5.5 #) [place] 082091-11-13 09:37:00 Test Item Value Reference Range Interpretation Comments Monocytes # (test code 0.5 See_Comment [Aut omated message] The = Monocytes #) system which generated this result tra nsmitted reference range : <=0.8. The reference r mazin was not used to int erpret this result as normal/abnormal . [place] 082091-11-13 09:37:00 Test Item Value Reference Range Interpretation Comments Eosinophils # (test code 0.1 See_Comment [A utomated message] The = Eosinophils #) system whic h generated this result tra nsmitted reference range : <=0.5. The reference r mazin was not used to int erpret this result as normal/abnormal . [facility]HAPGBQTCFX8926-39-38 09:37:00 Test Item Value Reference Range Interpretation Comments Macrocyte (test code = 2+ *ABN*(06/19/21 Macrocyte) 3:37 AM) [place] 573441-11-12 10:46:00 Test Item Value Reference Range Interpretation Comments Glucose Lvl (test code = Glucose Lvl) 107 70-99 [place] 573441-11-12 10:46:00 Test Item Value Reference Range Interpretation Comments BUN (test code = BUN) 4 7-22 [place] 573441-11-12 10:46:00 Test Item Value Reference Range Interpretation Comments Creatinine Lvl (test code = Creatinine 0.49 0.50-1.40 Lvl) [place] 573441-11-12 10:46:00 Test Item Value Reference Range Interpretation Comments Sodium Lvl (test code = Sodium Lvl) 141 135-145 [place] 573441-11-12 10:46:00 Test Item Value Reference Range Interpretation Comments Potassium Lvl (test code = Potassium 3.4 3.5-5.1 Lvl) [facility]2021-11-12 10:46:00 Test Item Value Reference Range Interpretation Comments Chloride Lvl (test code = Chloride Lvl) 109 95-109 [place] 573441-11-12 10:46:00 Test Item Value Reference Range Interpretation Comments CO2 (test code = CO2) 24 24-32 [place] 573441-11-12 10:46:00 Test Item Value Reference Range Interpretation Comments Calcium Lvl (test code = Calcium Lvl) 8.0 8.5-10.5 [place] 573441-11-12 10:46:00 Test Item Value Reference Range Interpretation Comments AGAP (test code = AGAP) 11.4 10.0-20.0 [place] 573441-11-12 10:46:00 Test Item Value Reference Range Interpretation Comments eGFR (test code = eGFR) 109 [place] 573441-11-12 10:46:00 Test Item Value Reference Range Interpretation Comments Magnesium Lvl (test code = Magnesium 1.7 1.8-2.4 Lvl) [facility] CenterHegubnaGAXPFIBVEI8632-98-49 17:44:00 Test Item Value Reference Range Interpretation Comments Platelet (test code = Platelet) 92 133-450 [place] 573441-11-11 09:54:00 Test Item Value Reference Range Interpretation Comments Total Protein (test code = Total 6.5 6.4-8.4 Protein) [place] 573441-11-11 09:54:00 Test Item Value Reference Range Interpretation Comments Albumin Lvl (test code = Albumin Lvl) 2.4 3.5-5.0 [place] 573441-11-11 09:54:00 Test Item Value Reference Range Interpretation Comments ALT (test code = ALT) 42 See_Comment [Auto mated message] The system which ge nerated this result transmit nieves reference range : <=65. The reference range was not used to interpr et this result as bhavna l/abnormal. [place] 573441-11-11 09:54:00 Test Item Value Reference Range Interpretation Comments AST (test code = AST) 127 See_Comment [Auto mated message] The system which ge nerated this result transmit nieves reference range : <=37. The reference range was not used to interpr et this result as bhavna l/abnormal. [place] 573441-11-11 09:54:00 Test Item Value Reference Range Interpretation Comments Alk Phos (test code = Alk Phos) 82 39-136 [place] 573441-11-11 09:54:00 Test Item Value Reference Range Interpretation Comments Bili Total (test code = Bili Total) 2.9 0.2-1.3 [place] 573441-11-11 09:54:00 Test Item Value Reference Range Interpretation Comments B/C Ratio (test code = B/C Ratio) 10 1 6-25 [place] 573441-11-11 09:54:00 Test Item Value Reference Range Interpretation Comments Globulin (test code = Globulin) 4.1 2.7-4.2 [place] 573441-11-11 09:54:00 Test Item Value Reference Range Interpretation Comments A/G Ratio (test code = A/G Ratio) 0.6 1 0.7-1.6 [facility] HospitalWgxfhbcIDLLGZWKZE4947-74-22 09:54:00 Test Item Value Reference Range Interpretation Comments WBC (test code = WBC) 4.1 3.7-10.4 [facility] HospitalOcqotghCWTMHMWNWA9924-39-76 09:54:00 Test Item Value Reference Range Interpretation Comments RBC (test code = RBC) 2.89 4.20-5.40 [facility] HospitalTnptvauQJCXFIYSSH0932-22-67 09:54:00 Test Item Value Reference Range Interpretation Comments Hgb (test code = Hgb) 10.6 12.0-16.0 [facility] HospitalPtpzlkfOXYNEGFXSN8660-96-18 09:54:00 Test Item Value Reference Range Interpretation Comments Hct (test code = Hct) 30.3 36.0-48.0 [facility] HospitalZixvcciGPDUNIBQKI2760-14-79 09:54:00 Test Item Value Reference Range Interpretation Comments MCV (test code = MCV) 104.8 80.0-98.0 [facility] HospitalWhlheacWHVCJACZTT6320-93-17 09:54:00 Test Item Value Reference Range Interpretation Comments MCH (test code = MCH) 36.8 pg 27.0-31.0 [facility] HospitalUrqshcpRVJCSFXQHJ3665-96-87 09:54:00 Test Item Value Reference Range Interpretation Comments MCHC (test code = MCHC) 35.1 32.0-36.0 [facility] HospitalJaawtmaTJICZDHXPX6280-23-65 09:54:00 Test Item Value Reference Range Interpretation Comments RDW (test code = RDW) 16.8 11.5-14.5 [facility] HospitalOrcuiaeKBLNCVHYDI5819-86-02 09:54:00 Test Item Value Reference Range Interpretation Comments Platelet (test code = Platelet) 78 133-450 [facility] HospitalGtcuczeEYOVXNNOQO1209-09-46 09:54:00 Test Item Value Reference Range Interpretation Comments MPV (test code = MPV) 7.2 7.4-10.4 [facility] HospitalDurvwieCNZEDHESFE6273-62-00 09:54:00 Test Item Value Reference Range Interpretation Comments Segs (test code = Segs) 62.7 45.0-75.0 [facility] HospitalKzkfboiHJFJLERZSM0213-97-85 09:54:00 Test Item Value Reference Range Interpretation Comments Lymphocytes (test code = Lymphocytes) 25.9 20.0-40.0 [facility] HospitalNhaqdibXTCRLLUNLR3837-02-23 09:54:00 Test Item Value Reference Range Interpretation Comments Monocytes (test code = Monocytes) 7.2 2.0-12.0 [facility] HospitalNzwmsxpPRWACLHKDH7441-36-21 09:54:00 Test Item Value Reference Range Interpretation Comments Eosinophils (test code = 3.1 See_Comment [A utomated message] The Eosinophils) system which ge nerated this result tra nsmitted reference range : <=4.0. The reference r mazin was not used to int erpret this result as normal/abnormal . [facility] HospitalQnkaetoTERQVFCOVM2053-56-12 09:54:00 Test Item Value Reference Range Interpretation Comments Basophils (test code = 1.1 See_Comment [Aut omated message] The Basophils) system which ge nerated this result tra nsmitted reference range : <=1.0. The reference r mazin was not used to int erpret this result as normal/abnormal . [facility] HospitalCvslmmcPMVWZLRLTK8767-08-45 09:54:00 Test Item Value Reference Range Interpretation Comments Neutrophils # (test code = Neutrophils 2.6 1.5-8.1 #) [facility] HospitalTjozomlDKFKHQXMDO8706-18-09 09:54:00 Test Item Value Reference Range Interpretation Comments Lymphocytes # (test code = Lymphocytes 1.1 1.0-5.5 #) [facility] HospitalOvbgdrrMGFDNMOPQO7544-73-44 09:54:00 Test Item Value Reference Range Interpretation Comments Monocytes # (test code 0.3 See_Comment [Aut omated message] The = Monocytes #) system which generated this result tra nsmitted reference range : <=0.8. The reference r mazin was not used to int erpret this result as normal/abnormal . [facility] HospitalTuhiwiyCQITCEOZRJ2742-39-28 09:54:00 Test Item Value Reference Range Interpretation Comments Eosinophils # (test code 0.1 See_Comment [A utomated message] The = Eosinophils #) system whic h generated this result tra nsmitted reference range : <=0.5. The reference r mazin was not used to int erpret this result as normal/abnormal . [facility] HospitalQnssnehLLFDYEDDLE0498-10-06 09:54:00 Test Item Value Reference Range Interpretation Comments Macrocyte (test code = 2+ *ABN*(06/17/21 Macrocyte) 3:54 AM) [facility]2021-11-10 11:05:00 Test Item Value Reference Range Interpretation Comments Total CK (test code = Total CK) 962 12191 [facility] [id number] 04:43:00 Test Item Value Reference Range Interpretation Comments Total CK (test code = Total CK) 1095 12191 [facility] [id number] 23:58:00 Test Item Value Reference Range Interpretation Comments Total CK (test code = Total CK) 1125 12191 [facility]CHE[facility] [id number] 04:09:00 Test Item Value Reference Range Interpretation Comments Lactic Acid Lvl (test code = Lactic 1.2 0.5-2.2 Acid Lvl) [facility]LEVOFLOXACIN:SUSC:PT:ISOLATE:ORDQN:[id number] 01:33:00 Test Item Value Reference Range Interpretation Comments Culture: Urine (test >100,000 CFU/mL code = Culture: Escherichia coli Urine) [facility]LEVOFLOXACIN:SUSC:PT:ISOLATE:ORDQN:[id number] 01:33:00 Test Item Value Reference Range Interpretation Comments Escherichia coli (test code Escherichia coli = Escherichia coli) [facility] [id number] 01:21:00 Test Item Value Reference Range Interpretation Comments U Amph Scr (test code Negative *NA*(06/14/21 = U Amph Scr) 7:21 PM) [facility] [id number] 01:21:00 Test Item Value Reference Range Interpretation Comments U Alida Scr (test code Negative *NA*(06/14/21 = U Alida Scr) 7:21 PM) [facility] [id number] 01:21:00 Test Item Value Reference Range Interpretation Comments U Benzodiaz Scr (test Negative *NA*(06/14/21 code = U Benzodiaz Scr) 7:21 PM) [facility] [id number] 01:21:00 Test Item Value Reference Range Interpretation Comments U Cocaine Scr (test Negative *NA*(06/14/21 code = U Cocaine Scr) 7:21 PM) [facility] [id number] 01:21:00 Test Item Value Reference Range Interpretation Comments U Cannab Scr (test Negative *NA*(06/14/21 code = U Cannab Scr) 7:21 PM) [facility] [id number] 01:21:00 Test Item Value Reference Range Interpretation Comments U Opiate Scr (test Negative *NA*(06/14/21 code = U Opiate Scr) 7:21 PM) [facility] [id number] 01:21:00 Test Item Value Reference Range Interpretation Comments U Phencyclidine Scr (test Negative code = U Phencyclidine *NA*(06/14/21 7:21 Scr) PM) [facility] [id number] 01:21:00 Test Item Value Reference Range Interpretation Comments UDS Note (test code = See Note (06/14/21 7:21 UDS Note) PM) [facility] [id number] 01:21:00 Test Item Value Reference Range Interpretation Comments UA Color (test code = Yellow *NA*(06/14/21 UA Color) 7:21 PM) [facility] [id number] 01:21:00 Test Item Value Reference Range Interpretation Comments UA Turbidity (test code Marked *ABN*(06/14/21 = UA Turbidity) 7:21 PM) [facility] [id number] 01:21:00 Test Item Value Reference Range Interpretation Comments UA Spec Grav (test code = UA Spec 1.017 1 Grav) [facility] [id number] 01:21:00 Test Item Value Reference Range Interpretation Comments UA pH (test code = UA pH) 5.0 1 5.0-8.0 [facility] [id number] 01:21:00 Test Item Value Reference Range Interpretation Comments UA Protein (test code = UA Protein) 100 mg/dL [facility] [id number] 01:21:00 Test Item Value Reference Range Interpretation Comments UA Glucose (test code = UA Negative mg/dL Glucose) [facility] [id number] 01:21:00 Test Item Value Reference Range Interpretation Comments UA Ketones (test code = UA Negative mg/dL Ketones) [facility] [id number] 01:21:00 Test Item Value Reference Range Interpretation Comments UA Bili (test code = Negative *NA*(06/14/21 UA Bili) 7:21 PM) [facility] [id number] 01:21:00 Test Item Value Reference Range Interpretation Comments UA Blood (test code = Negative (06/14/21 7:21 UA Blood) PM) [facility] [id number] 01:21:00 Test Item Value Reference Range Interpretation Comments UA Urobilinogen (test code = UA 4.0 0.1-1.0 Urobilinogen) [facility] [id number] 01:21:00 Test Item Value Reference Range Interpretation Comments UA Nitrite (test code Negative (06/14/21 7:21 = UA Nitrite) PM) [facility] [id number] 01:21:00 Test Item Value Reference Range Interpretation Comments UA Leuk Est (test Moderate *ABN*(06/14/21 code = UA Leuk Est) 7:21 PM) [facility] AND [id number] 01:21:00 Test Item Value Reference Range Interpretation Comments UA WBC (test code = no gt See_Comment [Automa nieves message] The UA WBC) system which ge nerated this result transmit nieves reference range : <=5. The reference range was not used to interpr et this result as bhavna l/abnormal. [facility] AND [id number] 01:21:00 Test Item Value Reference Range Interpretation Comments UA RBC (test code = 6 See_Comment [Automa nieves message] The UA RBC) system which ge nerated this result transmit nieves reference range : <=2. The reference range was not used to interpr et this result as bhavna l/abnormal. [facility] AND [id number]:21:00 Test Item Value Reference Range Interpretation Comments UA Mucus (test code = UA Mucus) Moderate /LPF [facility] [id number] 01:21:00 Test Item Value Reference Range Interpretation Comments UA Hyal Cast (test 52 See_Comment [Automat ed message] The code = UA Hyal Cast) system which generated this result transmit nieves reference range : <=2. The reference range was not used to interpr et this result as bhavna l/abnormal. [facility] AND [id number] 01:21:00 Test Item Value Reference Range Interpretation Comments UA Sq Epi (test code = UA Sq Epi) None [facility]en [facility] [id number] 01:21:00 Test Item Value Reference Range Interpretation Comments UA Color (test code = Yellow *NA*(06/14/21 UA Color) 7:21 PM) [facility] AND [id number] 01:21:00 Test Item Value Reference Range Interpretation Comments UA Turbidity (test code Marked *ABN*(06/14/21 = UA Turbidity) 7:21 PM) [facility] AND [id number] 01:21:00 Test Item Value Reference Range Interpretation Comments UA Spec Grav (test code = UA Spec 1.017 1 Grav) [facility] AND [id number] 01:21:00 Test Item Value Reference Range Interpretation Comments UA pH (test code = UA pH) 5.0 1 5.0-8.0 [facility] AND [id number] 01:21:00 Test Item Value Reference Range Interpretation Comments UA Protein (test code = UA Protein) 100 mg/dL [facility] AND [id number] 01:21:00 Test Item Value Reference Range Interpretation Comments UA Glucose (test code = UA Negative mg/dL Glucose) [facility] AND [id number] 01:21:00 Test Item Value Reference Range Interpretation Comments UA Ketones (test code = UA Negative mg/dL Ketones) [facility] AND [id number] 01:21:00 Test Item Value Reference Range Interpretation Comments UA Bili (test code = Negative *NA*(06/14/21 UA Bili) 7:21 PM) [facility] AND [id number] 01:21:00 Test Item Value Reference Range Interpretation Comments UA Blood (test code = Negative (06/14/21 7:21 UA Blood) PM) [facility] AND [id number] 01:21:00 Test Item Value Reference Range Interpretation Comments UA Urobilinogen (test code = UA 4.0 0.1-1.0 Urobilinogen) [facility] AND [id number] 01:21:00 Test Item Value Reference Range Interpretation Comments UA Nitrite (test code Negative (06/14/21 7:21 = UA Nitrite) PM) [facility] AND [id number] 01:21:00 Test Item Value Reference Range Interpretation Comments UA Leuk Est (test Moderate *ABN*(06/14/21 code = UA Leuk Est) 7:21 PM) [facility] AND [id number] 01:21:00 Test Item Value Reference Range Interpretation Comments UA WBC (test code = no gt See_Comment [Automa nieves message] The UA WBC) system which ge nerated this result transmit nieves reference range : <=5. The reference range was not used to interpr et this result as bhavna l/abnormal. [facility] AND [id number] 01:21:00 Test Item Value Reference Range Interpretation Comments UA RBC (test code = 6 See_Comment [Automa nieves message] The UA RBC) system which ge nerated this result transmit nieves reference range : <=2. The reference range was not used to interpr et this result as bhavna l/abnormal. [facility] AND [id number] 01:21:00 Test Item Value Reference Range Interpretation Comments UA Mucus (test code = UA Mucus) Moderate /LPF [facility] AND [id number] 01:21:00 Test Item Value Reference Range Interpretation Comments UA Hyal Cast (test 52 See_Comment [Automat ed message] The code = UA Hyal Cast) system which generated this result transmit nieves reference range : <=2. The reference range was not used to interpr et this result as bhavna l/abnormal. [facility] AND [id number] 01:21:00 Test Item Value Reference Range Interpretation Comments UA Sq Epi (test code = UA Sq Epi) None Seen [facility] SheldonURINE [id number] 01:21:00 Test Item Value Reference Range Interpretation Comments U Preg (test code = U Negative (06/14/21 7:21 Preg) PM) [facility] [id number] 23:00:00 Test Item Value Reference Range Interpretation Comments Troponin-I (test code no gt See_Comment [Auto mated message] The = Troponin-I) system which g enerated this result transmit nieves reference range : <=0.40. The reference r mazin was not used to interpr et this result as bhavna l/abnormal. [facility]CHEM [id number] 23:00:00 Test Item Value Reference Range Interpretation Comments Total Protein (test code = Total 7.9 6.4-8.4 Protein) [facility] [id number] 23:00:00 Test Item Value Reference Range Interpretation Comments Albumin Lvl (test code = Albumin Lvl) 3.2 3.5-5.0 [facility] [id number] 23:00:00 Test Item Value Reference Range Interpretation Comments ALT (test code = ALT) 51 See_Comment [Auto mated message] The system which ge nerated this result transmit nieves reference range : <=65. The reference range was not used to interpr et this result as bhavna l/abnormal. [facility]wood[facility]idave[facility] [id number] 23:00:00 Test Item Value Reference Range Interpretation Comments AST (test code = AST) 201 See_Comment [Auto mated message] The system which ge nerated this result transmit nieves reference range : <=37. The reference range was not used to interpr et this result as bhavna l/abnormal. [facility] [id number] 23:00:00 Test Item Value Reference Range Interpretation Comments Alk Phos (test code = Alk Phos) 95 39-136 [facility] [id number] 23:00:00 Test Item Value Reference Range Interpretation Comments Bili Total (test code = Bili Total) 4.2 0.2-1.3 [facility] [id number] 23:00:00 Test Item Value Reference Range Interpretation Comments B/C Ratio (test code = B/C Ratio) 12 1 6-25 [facility] [id number] 23:00:00 Test Item Value Reference Range Interpretation Comments Globulin (test code = Globulin) 4.7 2.7-4.2 [facility] [id number] 23:00:00 Test Item Value Reference Range Interpretation Comments A/G Ratio (test code = A/G Ratio) 0.7 1 0.7-1.6 [facility] [id number] 23:00:00 Test Item Value Reference Range Interpretation Comments Lactic Acid Lvl (test code = Lactic 2.2 0.5-2.2 Acid Lvl) [facility] [id number] 23:00:00 Test Item Value Reference Range Interpretation Comments Ammonia (test code = Ammonia) 79.0 [facility]2021-11-08 23:00:00 Test Item Value Reference Range Interpretation Comments Phosphorus (test code = Phosphorus) 3.5 2.5-4.5 [facility] [id number] 23:00:00 Test Item Value Reference Range Interpretation Comments Lipase Lvl (test code = Lipase Lvl) 49 73-393 [facility]2021-11-08 23:00:00 Test Item Value Reference Range Interpretation Comments Bili Direct (test code 2.3 See_Comment [Aut omated message] The = Bili Direct) system which generated this result tra nsmitted reference range : <=0.3. The reference r mazin was not used to int erpret this result as bhavna l/abnormal. [place] 082091-11-08 23:00:00 Test Item Value Reference Range Interpretation Comments WBC (test code = WBC) 5.7 3.7-10.4 [place] 082091-11-08 23:00:00 Test Item Value Reference Range Interpretation Comments RBC (test code = RBC) 3.01 4.20-5.40 [place] 082091-11-08 23:00:00 Test Item Value Reference Range Interpretation Comments Hgb (test code = Hgb) 11.0 12.0-16.0 [place] 082091-11-08 23:00:00 Test Item Value Reference Range Interpretation Comments Hct (test code = Hct) 32.0 36.0-48.0 [place] 082091-11-08 23:00:00 Test Item Value Reference Range Interpretation Comments MCV (test code = MCV) 106.5 80.0-98.0 [place] 082091-11-08 23:00:00 Test Item Value Reference Range Interpretation Comments MCH (test code = MCH) 36.5 pg 27.0-31.0 [place] 082091-11-08 23:00:00 Test Item Value Reference Range Interpretation Comments MCHC (test code = MCHC) 34.3 32.0-36.0 [place] 082091-11-08 23:00:00 Test Item Value Reference Range Interpretation Comments RDW (test code = RDW) 17.2 11.5-14.5 [place] 082091-11-08 23:00:00 Test Item Value Reference Range Interpretation Comments MPV (test code = MPV) 8.6 7.4-10.4 [place] 082091-11-08 23:00:00 Test Item Value Reference Range Interpretation Comments PT (test code = PT) 18.9 s 12.0-14.7 [id number] 23:00:00 Test Item Value Reference Range Interpretation Comments INR (test code = INR) 1.63 1 0.85-1.17 [place] 082091-11-08 23:00:00 Test Item Value Reference Range Interpretation Comments PTT (test code = PTT) 39.5 s 22.9-35.8 [place] 082091-11-08 23:00:00 Test Item Value Reference Range Interpretation Comments Segs (test code = Segs) 85.0 45.0-75.0 [place] 082091-11-08 23:00:00 Test Item Value Reference Range Interpretation Comments Lymphocytes (test code = Lymphocytes) 7.4 20.0-40.0 [place] 082091-11-08 23:00:00 Test Item Value Reference Range Interpretation Comments Monocytes (test code = Monocytes) 6.4 2.0-12.0 [facility] H[id number] 23:00:00 Test Item Value Reference Range Interpretation Comments Eosinophils (test code = 0.8 See_Comment [A utomated message] The Eosinophils) system which ge nerated this result tra nsmitted reference range : <=4.0. The reference r mazin was not used to int erpret this result as normal/abnormal . [facility] HospitalLtmudwySBLLSZPQWF6157-42-50 23:00:00 Test Item Value Reference Range Interpretation Comments Basophils (test code = 0.4 See_Comment [Aut omated message] The Basophils) system which ge nerated this result tra nsmitted reference range : <=1.0. The reference r mazin was not used to int erpret this result as normal/abnormal . [place] 082091-11-08 23:00:00 Test Item Value Reference Range Interpretation Comments Neutrophils # (test code = Neutrophils 4.8 1.5-8.1 #) [place] 082091-11-08 23:00:00 Test Item Value Reference Range Interpretation Comments Lymphocytes # (test code = Lymphocytes 0.4 1.0-5.5 #) [facility]EzompdpDEDFCOUCPU0605-04-14 23:00:00 Test Item Value Reference Range Interpretation Comments Monocytes # (test code 0.4 See_Comment [Aut omated message] The = Monocytes #) system which generated this result tra nsmitted reference range : <=0.8. The reference r mazin was not used to int erpret this result as normal/abnormal . [facility] HospitalPayyzxxDIVNRWXSYR8581-92-88 23:00:00 Test Item Value Reference Range Interpretation Comments Macrocyte (test code = 2+ *ABN*(06/14/21 Macrocyte) 5:00 PM) [facility] CenterValxnjkPSNNFLHKFI1103-88-55 23:00:00 Test Item Value Reference Range Interpretation Comments Coronavirus (COVID-19) Not Detected (06/14/21 SHARIF (test code = 5:00 PM) Coronavirus (COVID-19) SHARIF) [facility] CenterTprymizQQSVT4059-05-53 23:00:00 Test Item Value Reference Range Interpretation Comments [place] Lvl (test code = [place] Lvl) no gt 0.50-1.50 [facility] CenterJdavfpxHOILMPURXL3033-14-85 23:00:00 Test Item Value Reference Range Interpretation Comments Acetaminoph Lvl (test code (06/14/21 5:00 PM) 10-20 = Acetaminoph Lvl) [facility]NvhpplfIYXBVMZHLP9731-16-76 23:00:00 Test Item Value Reference Range Interpretation Comments Carbamaz Lvl (test code = Carbamaz Lvl) 0.6 4.0-12.0 [facility] CenterEwemrstSXVOQZYXOM0153-31-64 23:00:00 Test Item Value Reference Range Interpretation Comments Digoxin Lvl (test code = Digoxin Lvl) 0.1 0.8-2.0 [facility] CenterDxbslzaCEGIUUXQZY1365-77-46 23:00:00 Test Item Value Reference Range Interpretation Comments Ethanol Lvl (test code = Ethanol Lvl) no gt [facility] CenterCofzzvjFZUUSHHZFH9483-27-62 23:00:00 Test Item Value Reference Range Interpretation Comments Etoh (%) (test code = Etoh (%)) no gt [facility] [id number] 23:00:00 Test Item Value Reference Range Interpretation Comments Phenytoin Total (test code = Phenytoin no gt 10.0-20.0 Total) [facility] CenterUtewhovQNMIZXIQGC5486-83-04 23:00:00 Test Item Value Reference Range Interpretation Comments Valproic Acid Lvl (test code = Valproic no gt 50-100 Acid Lvl) [facility] CenterMlgmpvtHLAEOPQSOO9439-72-87 23:00:00 Test Item Value Reference Range Interpretation Comments Salicylate Lvl (test <1.7 mg/dL See_Comment [Autom ated message] code = Salicylate The system which Lvl) generated this result transmitted ref erence range: <=30.0. The reference range was not used to int erpret this result as normal/abnormal . [facility] CenterZszdtdaJWQAQYPFGN6545-51-49 13:22:00 Test Item Value Reference Range Interpretation Comments Coronavirus (COVID-19) Not Detected (01/22/21 SHARIF (test code = 8:22 AM) Coronavirus (COVID-19) SHARIF) [facility]vd[facility]buQECTCYJXNXYN9033[facility]47-52 13:09:00 Test Item Value Reference Range Interpretation Comments Potassium Lvl (test code = Potassium 3.2 3.5-5.1 Lvl) [facility] HospitalYyyizuxFUUOTWUKVIPU8767-25-07 20:58:00 Test Item Value Reference Range Interpretation Comments Potassium Lvl (test code = Potassium 2.8 3.5-5.1 Lvl) [facility] AND [id number] 20:58:00 Test Item Value Reference Range Interpretation Comments UA Color (test code = Yellow *NA*(12/27/20 UA Color) 3:58 PM) [facility] AND [id number] 20:58:00 Test Item Value Reference Range Interpretation Comments UA Turbidity (test code = Clear (12/27/20 3:58 UA Turbidity) PM) [facility] AND [id number] 20:58:00 Test Item Value Reference Range Interpretation Comments UA Spec Grav (test code = UA Spec Grav) no gt [facility] AND [id number] 20:58:00 Test Item Value Reference Range Interpretation Comments UA pH (test code = UA pH) 8.0 1 5.0-8.0 [facility] AND [id number] 20:58:00 Test Item Value Reference Range Interpretation Comments UA Protein (test code = UA Negative mg/dL Protein) [facility] AND [id number] 20:58:00 Test Item Value Reference Range Interpretation Comments UA Glucose (test code = UA Negative mg/dL Glucose) [facility] AND [id number] 20:58:00 Test Item Value Reference Range Interpretation Comments UA Ketones (test code = UA Negative mg/dL Ketones) [facility] AND [id number] 20:58:00 Test Item Value Reference Range Interpretation Comments UA Bili (test code = Negative *NA*(12/27/20 UA Bili) 3:58 PM) [facility] AND [id number] 20:58:00 Test Item Value Reference Range Interpretation Comments UA Blood (test code = Negative (12/27/20 3:58 UA Blood) PM) [facility] AND [id number] 20:58:00 Test Item Value Reference Range Interpretation Comments UA Urobilinogen (test code = UA 2.0 0.1-1.0 Urobilinogen) [facility] AND [id number] 20:58:00 Test Item Value Reference Range Interpretation Comments UA Nitrite (test code Negative (12/27/20 3:58 = UA Nitrite) PM) [facility] AND [id number] 20:58:00 Test Item Value Reference Range Interpretation Comments UA Leuk Est (test Negative (12/27/20 3:58 code = UA Leuk Est) PM) [facility] AND [id number] 20:58:00 Test Item Value Reference Range Interpretation Comments UA Sq Epi (test code = UA Sq Epi) Few /LPF [facility] AND [id number] 20:58:00 Test Item Value Reference Range Interpretation Comments UA WBC (test code = 1 See_Comment [Automa nieves message] The UA WBC) system which ge nerated this result transmit nieves reference range : <=5. The reference range was not used to interpr et this result as bhavna l/abnormal. [facility] AND [id number] 20:58:00 Test Item Value Reference Range Interpretation Comments UA RBC (test code = 2 See_Comment [Automa nieves message] The UA RBC) system which ge nerated this result transmit nieves reference range : <=2. The reference range was not used to interpr et this result as bhavna l/abnormal. [facility] [id number] 20:58:00 Test Item Value Reference Range Interpretation Comments UA Mucus (test code = UA Mucus) Few /LPF [facility] CenterCHEM [id number] 17:46:00 Test Item Value Reference Range Interpretation Comments Lipase Lvl (test code = Lipase Lvl) 20 73-393 [facility] HospitalOukecyxRJYRWAYFNHBH0790-37-14 17:46:00 Test Item Value Reference Range Interpretation Comments Sodium Lvl (test code = Sodium Lvl) 134 135-145 [facility] HospitalDsghfowIFXBZWHQTMBQ8548-89-81 17:46:00 Test Item Value Reference Range Interpretation Comments Potassium Lvl (test code = Potassium 5.3 3.5-5.1 Lvl) [facility] HospitalIqwpdciCMDKSWCHBQKO6341-02-35 17:46:00 Test Item Value Reference Range Interpretation Comments Chloride Lvl (test code = Chloride Lvl) 97 95-109 [facility] HospitalBugdsgqFKMAGGTEMUQV8664-75-68 17:46:00 Test Item Value Reference Range Interpretation Comments Glucose Lvl (test code = Glucose Lvl) 165 70-99 [facility] HospitalClamkowTRGMJMFKGWZM4577-55-35 17:46:00 Test Item Value Reference Range Interpretation Comments BUN (test code = BUN) 5 7-22 [facility] HospitalZngliskSVDRKPNTGNBA5953-59-58 17:46:00 Test Item Value Reference Range Interpretation Comments Creatinine Lvl (test code = Creatinine 0.84 0.50-1.40 Lvl) [facility] HospitalQjjzrcdNEKGJJVNBKJN6606-39-21 17:46:00 Test Item Value Reference Range Interpretation Comments CO2 (test code = CO2) 30 24-32 [facility] HospitalLzwojtqBYAMNJSVMZMJ7558-63-93 17:46:00 Test Item Value Reference Range Interpretation Comments Calcium Lvl (test code = Calcium Lvl) 8.5 8.5-10.5 [facility] HospitalEjcqhteLXUMJDTNRYTM0105-52-68 17:46:00 Test Item Value Reference Range Interpretation Comments Total Protein (test code = Total 8.4 6.4-8.4 Protein) [facility] HospitalJakuddiYLCXSHFIPSBM4850-65-92 17:46:00 Test Item Value Reference Range Interpretation Comments Albumin Lvl (test code = Albumin Lvl) 3.9 3.5-5.0 [facility] HospitalZnherxcKDNWGDHELTBD9654-43-80 17:46:00 Test Item Value Reference Range Interpretation Comments ALT (test code = ALT) 94 See_Comment [Auto mated message] The system which ge nerated this result transmit nieves reference range : <=65. The reference range was not used to interpr et this result as bhavna l/abnormal. [facility] HospitalNwrwdfaEJZKTERNXHNY5166-72-84 17:46:00 Test Item Value Reference Range Interpretation Comments AST (test code = AST) 292 See_Comment [Auto mated message] The system which ge nerated this result transmit nieves reference range : <=37. The reference range was not used to interpr et this result as bhavna l/abnormal. [facility] HospitalGhqeqciXSHYZQVDLDMA1609-63-02 17:46:00 Test Item Value Reference Range Interpretation Comments Bili Total (test code = Bili Total) 3.2 0.2-1.3 [place] [id number] 17:46:00 Test Item Value Reference Range Interpretation Comments AGAP (test code = AGAP) 12.3 10.0-20.0 [place] 119481-05-23 17:46:00 Test Item Value Reference Range Interpretation Comments B/C Ratio (test code = B/C Ratio) 6 1 6-25 [place] 119481-05-23 17:46:00 Test Item Value Reference Range Interpretation Comments Globulin (test code = Globulin) 4.5 2.7-4.2 [place] 119481-05-23 17:46:00 Test Item Value Reference Range Interpretation Comments A/G Ratio (test code = A/G Ratio) 0.9 1 0.7-1.6 [place] 119481-05-23 17:46:00 Test Item Value Reference Range Interpretation Comments eGFR (test code = eGFR) 79 [facility] HospitalEevnceoQOJAWGKQQIAY0694-99-67 17:46:00 Test Item Value Reference Range Interpretation Comments Alk Phos (test code = Alk Phos) 151 39-136 [facility] CenterWzgnkodUYYEEMVBVR5464-64-39 17:46:00 Test Item Value Reference Range Interpretation Comments WBC (test code = WBC) 4.4 3.7-10.4 [facility] HospitalTdpoclbIBVWCZVXIF5858-84-52 17:46:00 Test Item Value Reference Range Interpretation Comments RBC (test code = RBC) 4.04 4.20-5.40 [facility] HospitalNlpanckTSUGJNFYJW1476-32-06 17:46:00 Test Item Value Reference Range Interpretation Comments Hgb (test code = Hgb) 14.1 12.0-16.0 [facility] HospitalDzyfhiiJJMVKNGRKO0209-22-34 17:46:00 Test Item Value Reference Range Interpretation Comments Hct (test code = Hct) 40.8 36.0-48.0 [facility] HospitalKwfcihaMHOUKXWJHS5845-84-48 17:46:00 Test Item Value Reference Range Interpretation Comments MCV (test code = MCV) 101.0 80.0-98.0 [facility] HospitalRjlyghkCHGFPESBRC8646-28-68 17:46:00 Test Item Value Reference Range Interpretation Comments MCH (test code = MCH) 34.8 pg 27.0-31.0 [facility] HospitalSffbuexOVTOWVOFAZ3877-13-82 17:46:00 Test Item Value Reference Range Interpretation Comments MCHC (test code = MCHC) 34.5 32.0-36.0 [facility] HospitalTeonoffWEVYKAPEWE8829-93-20 17:46:00 Test Item Value Reference Range Interpretation Comments RDW (test code = RDW) 15.1 11.5-14.5 [facility] HospitalDmlfqzzEFKBBHGXDB8050-35-16 17:46:00 Test Item Value Reference Range Interpretation Comments Platelet (test code = Platelet) 127 133-450 [facility] HospitalTwqadwsRDYEGRNOWP9144-71-64 17:46:00 Test Item Value Reference Range Interpretation Comments MPV (test code = MPV) 8.2 7.4-10.4 [facility] HospitalVrpgjnwZZTEROJMYJ8297-51-76 17:46:00 Test Item Value Reference Range Interpretation Comments Segs (test code = Segs) 69.4 45.0-75.0 [place] [id number] 17:46:00 Test Item Value Reference Range Interpretation Comments Lymphocytes (test code = Lymphocytes) 17.8 20.0-40.0 [id number] 17:46:00 Test Item Value Reference Range Interpretation Comments Monocytes (test code = Monocytes) 10.7 2.0-12.0 [id number] 17:46:00 Test Item Value Reference Range Interpretation Comments Eosinophils (test code = 0.7 See_Comment [A utomated message] The Eosinophils) system which ge nerated this result tra nsmitted reference range : <=4.0. The reference r mazin was not used to int erpret this result as normal/abnormal . [place] [id number] 17:46:00 Test Item Value Reference Range Interpretation Comments Basophils (test code = 1.4 See_Comment [Aut omated message] The Basophils) system which ge nerated this result tra nsmitted reference range : <=1.0. The reference r mazin was not used to int erpret this result as normal/abnormal . [place] [id number] 17:46:00 Test Item Value Reference Range Interpretation Comments Neutrophils # (test code = Neutrophils 3.0 1.5-8.1 #) [address]05-23 17:46:00 Test Item Value Reference Range Interpretation Comments Lymphocytes # (test code = Lymphocytes 0.8 1.0-5.5 #) [address]05-23 17:46:00 Test Item Value Reference Range Interpretation Comments Monocytes # (test code 0.5 See_Comment [Aut omated message] The = Monocytes #) system which generated this result tra nsmitted reference range : <=0.8. The reference r mazin was not used to int erpret this result as normal/abnormal . [place] [id number] 17:46:00 Test Item Value Reference Range Interpretation Comments Basophils # (test code 0.1 See_Comment [Aut omated message] The = Basophils #) system which generated this result tra nsmitted reference range : <=0.2. The reference r mazin was not used to int erpret this result as normal/abnormal . [facility]
[2022-12-15] MEDS ORDERED: ACETAMINOPHEN 500 MG TAB ONE (08:01)
[2022-12-15] MEDS ORDERED: NA CHLORIDE 0.9% 500 ML ONE (08:01)
[2022-12-15 08:12] LABS: Absolute Lymphocytes (CBC) 1.5 K/uL (0.7-4.9); Hematocrit 36.6 % (36.0-45.0); Lymphocytes % 17.1 % (15.3-44.8); MCV 97.8 fL (80-100); MPV 7.6 fL (7.6-11.3); RBC Red Blood Cell Count 3.74 M/uL (3.86-4.86)
[2022-12-15 08:19] LABS: Urine Bacteria >50 /HPF (<20); Urine Bilirubin NEGATIVE (Negative); Urine Blood Negative (Negative); Urine Clarity Clear (Clear); Urine Color Light-Yellow (Yellow); Urine Glucose NEGATIVE (Negative); Urine Mucus Slight /HPF (None Seen); Urine Protein NEGATIVE (Negative); Urine RBC <5 /HPF (None Seen); Urine Urobilinogen Normal (Normal)
[2022-12-15 08:34] LABS: Albumin 3.8 g/dL (3.4-5.0); Bilirubin Total 1.4 mg/dL (0.2-1.0); Magnesium 2.1 mg/dL (1.6-2.4); Potassium 3.5 mEq/L (3.5-5.1); Protein, Total 8.6 g/dL (6.4-8.2); Troponin High Sensitivity 12.4 pg/mL (<58.9)
--- NOTE | 2022-12-15 08:44 | RAD REPORT ---
[facility] DES[facility] 8:37 am CLINICAL HISTORY: COUGH COMPARISON: Chest Single View dated 10/03/2022; Chest Single View dated 10/02/2022; Chest Single View dated 09/30/2022; Chest Single View dated 09/29/2022 TECHNIQUE: Portable AP view of the chest. FINDINGS: Mild residual patchy bibasilar airspace opacities, with improvement of other patchy opacit ies since the prior exam. Peripheral right lower lung 7 millimeter nodule suggestive of a granuloma i s stable. No pneumothorax or effusion. The mediastinal contours are unchanged. Heart is at the upper limit of normal in size. IMPRESSION: Partial improvement of airspace opacities with mild residual bibasilar opacities.
[2022-12-15] MEDS ORDERED: CEFTRIAXONE 1000 MG/VIAL ONE (09:08)
[2022-12-15] MEDS ORDERED: DOXYCYCLINE 100 MG CAP PO ONE (09:09)
[2022-12-15] MEDS ORDERED: NA CHLORIDE 0.9% 50 ML ONE (09:09)
--- NOTE | 2022-12-15 09:36 | EDPHYS ---
Physician Documentation [facility] Name: Crystal Potter Age: 57 yrs Sex: Female : 1965 Arrival Date: 12/15/2022 Time: 07:27 Bed 20 Private MD: ED Physician Erinn Baeza HPI: 12/15 07:36 This 57 yrs old Female presents to ER via Unassigned with complaints of General sd2 Weakness. 07:36 57-year-old female with a history of asthma, bronchitis, double pneumonia requiring sd2 tracheostomy placement presents via EMS with chief complaint of generalized weakness. She reports that most of her symptoms started yesterday with an associated fever and temperature of 100.5 F. She reports she has had an associated cough and increased sputum from her tracheostomy and a sensation of lightheadedness, headache and nausea. She denies any chest pain or significant shortness of breath. She does report that she has decreased stamina and endurance compared to normal and has had difficulty walking to her elevator at her home. She denies any vomiting, diarrhea or urinary symptoms. Her primary care provider is located in [place]. EMS reports she was found on the ground at home and has been scooting around due to not having the energy to get up and walk on her legs and she feels generally weak with no focal areas of weakness. Denies any falls or trauma. . Historical: - Allergies: 07:30 No Known Allergies; ll1 - PMHx: 07:30 Asthma; Hypertensive disorder; ll1 - PSHx: 07:30 trach; ll1 - Immunization history:: Adult Immunizations up to date. - Social history:: Smoking status: Patient reports the use of cigarette tobacco products, denies chronic smoking, but will smoke occasionally. ROS: 07:36 Eyes: Negative for injury, pain, redness, and discharge, ENT: Negative for injury, sd2 pain, and discharge, Neck: Negative for injury, pain, and swelling, Cardiovascular: Negative for chest pain, palpitations, and edema. 07:36 : Negative for dysuria, urinary frequency, hesitancy, urgency and hematuria. MS/Extremity: Negative for injury and deformity, Skin: Negative for injury, rash, and discoloration. 07:36 Constitutional: Positive for fever, malaise, Negative for chills. 07:36 Respiratory: Positive for cough, sputum production, Negative for wheezing. 07:36 Abdomen/GI: Positive for nausea, Negative for abdominal pain, vomiting, diarrhea. 07:36 Neuro: Positive for dizziness, headache, Negative for altered mental status, seizure activity, speech changes. Exam: 07:36 Constitutional: This is a well developed, well nourished patient who is awake, alert, sd2 and in no acute distress. Head/Face: Normocephalic, atraumatic. Eyes: EOMI, normal conjunctiva bilaterally Neck: Trachea midline, no thyromegaly or masses palpated, and no cervical lymphadenopathy. Supple, full range of motion without nuchal rigidity, or vertebral point tenderness. No Meningismus. Tracheostomy stoma in place. Chest/axilla: Normal chest wall appearance and motion. Nontender with no deformity. Cardiovascular: Regular rate and rhythm with a normal S1 and S2. No gallops, murmurs, or rubs. 2+ distal pulses. Respiratory: Lungs have equal breath sounds bilaterally, occasional crackle at the bilateral bases. No rales, rhonchi or wheezes noted. No increased work of breathing, no retractions or nasal flaring. Abdomen/GI: Soft, non-tender, with normal bowel sounds. No guarding or rebound. No evidence of tenderness throughout. Skin: Warm, dry with normal turgor. Normal color with no rashes, no lesions, and no evidence of cellulitis. MS/ Extremity: Pulses equal, no cyanosis. Neurovascular intact. Full, normal range of motion. Neuro: Awake and alert, GCS 15, oriented to person, place, time, and situation. Cranial nerves II-XII grossly intact. Motor strength 5/5 in all extremities. Sensory grossly intact. Psych: Awake, alert, with orientation to person, place and time. Behavior, mood, and affect are within normal limits. 08:13 ECG was reviewed by the Attending Physician. NSR, rate 74, no STEMI criteria. prolonged sd2 QTc noted Vital Signs: 07:50 BP 137 / 73; Pulse 72; Resp 20; Temp 97.7; Pulse Ox 96% on R/A; ll1 MDM: 07:32 Patient medically screened. sd2 07:36 Differential Diagnosis Dehydration, electrolyte abnormality, UTI, PNA, anemia among sd2 others. Data reviewed: vital signs, nurses notes, EMS record. Historians other than the Patient: EMS: provides report. Care significantly affected by the following chronic conditions: Hypertension, Chronic Obstructive Pulmonary Disease, Liver Disease. 09:32 Data reviewed: lab test result(s), EKG, radiologic studies. Consideration of sd2 Admission/Observation Patient was admitted/placed on observation. Management of patient was discussed with the following: Hospitalist: Dr. Fowler. I considered the following discharge prescriptions or medication management in the emergency department Medications were administered in the Emergency Department. See MAR. Independent interpretation of the following test(s) in the Emergency Department X-Ray: My interpretation is possible pneumonia. Care significantly affected by the following Social Determinants of Health:. Counseling: I had a detailed discussion with the patient and/or guardian regarding: the historical points, exam findings, and any diagnostic results supporting the discharge/admit diagnosis, lab results, radiology results, the need for further work-up and treatment in the hospital. Response to treatment: the patient's symptoms have mildly improved after treatment. ED course: Labs and imaging reviewed. Concern for possible UTI as well as possible bilateral pneumonia. The only prior x-ray we have in the system to compare to was when the patient had significant pneumonia previously and it is improved compared to this. However, we cannot see the x-rays after the patient was transferred. Therefore, I do have significant concern that the patient may be developing pneumonia once again which did cause her to have her tracheostomy in the first place. The patient is also unable to ambulate more than 5 feet without significant weakness and needing significant assistance. Therefore, she will need admission. She is comfortable with plan for admission and has no further questions at this time.. 12/15 07:34 Order name: CBC with Diff; Complete Time: 08:51 sd2 12/15 07:34 Order name: CMP; Complete Time: 08:51 sd2 12/15 07:34 Order name: Magnesium; Complete Time: 08:51 sd2 12/15 07:34 Order name: Troponin High Sensitivity; Complete Time: 08:51 sd2 12/15 07:34 Order name: BNP; Complete Time: 08:51 sd2 12/15 07:34 Order name: Procalcitonin; Complete Time: 09:15 sd2 12/15 07:34 Order name: Urinalysis w/ reflexes; Complete Time: 08:51 sd2 12/15 07:51 Order name: Flu; Complete Time: 08:51 [facility] 12/15 07:51 Order name: COVID-19 SARS RT PCR; Complete Time: 08:51 [facility] 12/15 08:53 Order name: Sputum Culture [facility] 12/15 10:47 Order name: Urinalysis w/ reflexes [facility] 12/15 10:47 Order name: CBC with Automated Diff [facility] 12/15 10:47 Order name: CBC with Automated Diff [facility] 12/15 10:47 Order name: Comprehensive Metabolic Panel [facility] 12/15 10:47 Order name: Comprehensive Metabolic Panel [facility] 12/15 10:47 Order name: Lactate w/ 2H reflex if indic. [facility] 12/15 10:47 Order name: Lactate w/ 2H reflex if indic. [facility] 12/15 10:47 Order name: Magnesium [facility] 12/15 10:47 Order name: Magnesium [facility] 12/15 10:47 Order name: NT PRO-BNP [facility] 12/15 10:47 Order name: NT PRO-BNP [facility] 12/15 10:47 Order name: Phosphorus [facility] 12/15 10:47 Order name: Phosphorus [facility] 12/15 10:51 Order name: Procalcitonin [facility] 12/15 07:34 Order name: XRAY Chest (1 view); Complete Time: 08:51 [facility] 12/15 10:47 Order name: Chest Pa And Lat (2 Views) [facility] 12/15 10:47 Order name: Case Management Consult [facility] 12/15 10:47 Order name: Physical Therapy Consult [facility] 12/15 10:47 Order name: Regular [facility] 12/15 07:34 Order name: EKG - Nurse/Tech; Complete Time: 08:18 sd Administered Medications: 08:06 Drug: NS 0.9% IV 500 ml Route: IV; Rate: bolus; Site: right antecubital; ll1 09:32 Follow up: Response: No adverse reaction; IV Status: Completed infusion; IV Intake: ll1 500ml 08:07 Not Given (Patient Refused): Acetaminophen PO 1000 mg PO once ll1 09:32 Drug: Rocephin IV 1 grams Route: IV; Rate: bolus; Site: right antecubital; ll1 09:32 Drug: Doxycycline PO 100 mg Route: PO; ll1 Disposition Summary: 12/15/22 09:35 Hospitalization Ordered Hospitalization Status: Inpatient Admission sd2 Provider: Isaac Fowler sd2 Location: Telemetry/MedSurg (Inpatient) sd2 Condition: Stable sd2 Problem: new sd2 Symptoms: have improved sd2 Bed/Room Type: Standard sd2 Room Assignment: 224(12/15/22 10:50) hung Diagnosis - Muscle weakness (generalized) sd2 - UTI/ Urinary tract infection, site not specified sd2 - Other pneumonia, unspecified organism sd2 Forms: - Medication Reconciliation Form sd2 - SBAR form sd2 Signatures: Dispatcher [employer] EDNM Emil Myers em1 Denys Frye RN RN ja1 Antoine Key RN RN [email or web address] Erinn Baeza MD MD sd2 Corrections: (The following items were deleted from the chart) 07:39 07:36 57-year-old female with a history of asthma, bronchitis, double pneumonia sd2 requiring tracheostomy placement presents via EMS with chief complaint of generalized weakness. She reports that most of her symptoms started yesterday with an associated fever and temperature of 100.5 F. She reports she has had an associated cough and increased sputum from her tracheostomy and a sensation of lightheadedness, headache and nausea. She denies any chest pain or significant shortness of breath. She does report that she has decreased stamina and endurance compared to normal and has had difficulty walking to her elevator at her home. She denies any vomiting, diarrhea or urinary symptoms. Her primary care provider is located in [place].. sd2 07:54 07:36 COVID-19/FLU A+B+MOL.LAB.BRZ ordered. EDMS EDMS 10:50 09:35 sd2 em1 10:50 10:50 224 em1 ja1
--- NOTE | 2022-12-15 09:36 | ER ---
Nurse's Notes [facility] Name: Crystal Potter Age: 57 yrs Sex: Female : 1965 Arrival Date: 12/15/2022 Time: 07:27 Bed 20 Private MD: Diagnosis: Muscle weakness (generalized);UTI/ Urinary tract infection, site not specified;Other pneumonia, unspecified organism Presentation: 12/15 07:50 Chief complaint: Patient states: Weak, dizzy, MEYERS, nausea since yesterday. + fever 100.5 ll1 at home EMS states: [facility]. Coronavirus screen: Vaccine status: Patient reports receiving the 2nd dose of the covid vaccine. Client denies travel out of the [place] in the last 14 days. difficulty breathing, fatigue, fever, headache, nausea, Client presents with at least one sign or symptom that may indicate coronavirus-19. Standard/surgical mask placed on the client. Ebola Screen: Patient denies travel to an Ebola-affected area in the 21 days before illness onset. Initial Sepsis Screen: Does the patient meet any 2 criteria? No. Patient's initial sepsis screen is negative. Does the patient have a suspected source of infection? No. Patient's initial sepsis screen is negative. Risk Assessment: Do you want to hurt yourself or someone else? Patient reports no desire to harm self or others. Onset of symptoms was December 14, 2022. 07:50 Method Of Arrival: Ambulatory ll1 07:50 Acuity: SHAHRAM 3 ll1 Triage Assessment: 07:52 General: Appears uncomfortable, ill, Behavior is cooperative, appropriate for age. ll1 Pain: Complains of pain in head Quality of pain is described as aching. Neuro: Reports dizziness, headache weakness. GI: Reports nausea. Historical: - Allergies: 07:30 No Known Allergies; ll1 - PMHx: 07:30 Asthma; Hypertensive disorder; ll1 - PSHx: 07:30 trach; ll1 - Immunization history:: Adult Immunizations up to date. - Social history:: Smoking status: Patient reports the use of cigarette tobacco products, denies chronic smoking, but will smoke occasionally. Screenin:[address] [facility] ED Fall Risk Assessment (Adult) History of falling in the last 3 months, ll1 including since admission Yes- physiologic fall (2 pts) Impaired Gait Yes (1 pt) Mobility Assist Device Used Yes (1 pt) Score/Fall Risk Level 3 or more points = High Risk Oriented to surroundings, Maintained a safe environment, Educated pt \T\ family on fall prevention, incl call for assistance when getting out of bed, Hourly rounding (assess needs \T\ fall precautionary measures) done, Offered frequent toileting (1:1 observation), Remained with patient while ambulating. Abuse screen: Denies threats or abuse. Nutritional screening: No deficits noted. Tuberculosis screening: No symptoms or risk factors identified. Assessment: 08:05 Reassessment: No changes from previously documented assessment. Patient and/or family ll1 updated on plan of care and expected duration. Pain level reassessed. Patient is alert, oriented x 3, equal unlabored respirations, skin warm/dry/pink. Vital Signs: 07:50 BP 137 / 73; Pulse 72; Resp 20; Temp 97.7; Pulse Ox 96% on R/A; ll1 ED Course: 07:29 Patient arrived in ED. ll1 07:30 Arm band placed on Patient placed in an exam room, on a stretcher. ll1 07:32 Erinn Baeza MD is Attending Physician. sd2 07:52 Triage completed. ll1 07:52 Urinalysis w/ reflexes Sent. ll1 08:05 Inserted saline lock: 20 gauge in right antecubital area, using aseptic technique. ll1 Blood collected. 08:18 Flu Sent. iw 08:18 COVID-19 SARS RT PCR Sent. iw 08:22 Antoine Key, RN is Primary Nurse. ll1 08:23 Patient has correct armband on for positive identification. Bed in low position. Call ll1 light in reach. Side rails up X 1. Client placed on continuous cardiac and pulse oximetry monitoring. NIBP monitoring applied. athletic monitor on. 08:39 XRAY Chest (1 view) In Process Unspecified. EDMS 09:32 Sputum Culture Sent. ll1 09:34 Isaac Fowler MD is Hospitalizing Provider. sd2 11:27 No provider procedures requiring assistance completed. Patient admitted, IV remains in ll1 place. Administered Medications: 08:06 Drug: NS 0.9% IV 500 ml Route: IV; Rate: bolus; Site: right antecubital; ll1 09:32 Follow up: Response: No adverse reaction; IV Status: Completed infusion; IV Intake: ll1 500ml 08:07 Not Given (Patient Refused): Acetaminophen PO 1000 mg PO once ll1 09:32 Drug: Rocephin IV 1 grams Route: IV; Rate: bolus; Site: right antecubital; ll1 09:32 Drug: Doxycycline PO 100 mg Route: PO; ll1 Medication: 08:23 VIS not applicable for this client. ll1 Intake: 09:32 IV: 500ml; Total: 500ml. ll1 Outcome: 09:35 Decision to Hospitalize by Provider. sd2 11:27 Admitted to Tele accompanied by tech, via wheelchair, room 224, with chart, Report ll1 called to Cachorro Espino RN 11:27 Condition: stable 11:27 Instructed on the need for admit. 12:06 Patient left the ED. ph Signatures: Dispatcher [employer] Lizbet Fragoso RN RN Jess Guan RN RN ph Lewis, Lynsay, RN RN [facility] Erinn Baeza MD MD mo2
[2022-12-15] MEDS ORDERED: ACETAMINOPHEN 500 MG TAB PO PRN (10:40)
[2022-12-15] MEDS ORDERED: ONDANSETRON 4 MG/2 ML VIAL IV PRN (10:40)
--- NOTE | 2022-12-15 10:56 | P.HP ---
Certification for Inpatient Patient admitted to: Observation With expected LOS: <2 Midnights Patient will require the following post-hospital care: Home Health Services Practitioner: I am a practitioner with admitting privileges, knowledge of patient current condition, hospital course, and medical plan of care. Services: Services provided to patient in accordance with Admission requirements found in Title 42 Section 412.3 of the Code of Federal Regulations Patient History Date of Service: 12/15/22 Reason for admission: Generalized weakness; pneumonia with questionable UTI History of Present Illness: Patient's 57-year-old female who we took care of in September of this past year for bilateral pneumonia and respiratory failure. Patient ended up with a tracheostomy and transferred to [facility]. Patient ended up having a tracheostomy removed and has a stoma. She came in because she was coughing and congested. She says she had a fever. She came to the emergency room for further evaluation. In the emergency room, urinalysis revealed minimal bacteria with minimal pyuria. Patient also had questionable infiltrate on her chest x-ray. Patient will be admitted to the hospital for further evaluation. Pt is doing well. Pt was recently discharged from [facility] to a residential facility in [place]. She was discharged home for outpatient physical therapy but she has not been able to make and outpatient physical therapy because she is using a walker to try to get to an elevator that will take her do wn stairs. She states she is getting stronger and will get her to work with physical therapy while she is in the hospital. Arrange for outpatient home health with physical therapy and occupational therapy and residential. Patient lives with her mother. She is in the process of getting a divorce from her . Allergies No Known Allergies Allergy (Unverified 09/14/22 03:12) Home Medications: Amlodipine [Norvasc] 10 mg PO DAILY 09/14/22 Lamotrigine [Lamotrigine ER] 200 mg PO DAILY 09/14/22 Levocetirizine Dihydrochloride [Xyzal] 5 mg PO DAILY 09/14/22 Mirtazapine 45 mg PO BEDTIME 09/14/22 Oxcarbazepine [Trileptal] 300 mg PO BID 09/14/22 Simvastatin [Zocor] 20 mg PO DAILY 09/14/22 Zolpidem Tartrate [Ambien] 10 mg PO BEDTIME 09/14/22 cloNIDine HCL [Clonidine HCl] 0.1 mg PO DAILY PRN 09/14/22 hydrOXYzine HCL [Atarax] 1 tab PO DAILY PRN 09/14/22 Losartan Potassium [Cozaar] 50 mg PO DAILY 09/22/22 Meloxicam 15 mg PO DAILY 09/22/22 - Past Medical/Surgical History Diabetic: No -: Hypertension -: Hyperlipidemia -: Asthma -: Alcoholic Cirrhosis -: Portal Hypertension -: Breast Reduction Psychosocial/ Personal History: Patient lives in [place]. - Family History Father Medical History: Heart disease, Diabetes - Social History Smoking Status: Former smoker Alcohol use: No CD- Drugs: No Caffeine use: Yes Review of Systems 10-point ROS is otherwise unremarkable Physical Examination - Vital Signs Temperature: 98 F Blood Pressure: 140/80 Pulse: 80 Respirations: 18 Pulse Ox (%): 95 - Physical Exam General: Alert, In no apparent distress, Oriented x3 HEENT: Atraumatic, PERRLA, Mucous membr. moist/pink, EOMI, Sclerae nonicteric Neck: Supple, 2+ carotid pulse no bruit, No LAD, Other (trach stoma), Without JVD or thyroid abnormality Respiratory: Diminished, Expiratory wheezes Cardiovascular: Regular rate/rhythm, Normal S1 S2, No murmurs Gastrointestinal: Normal bowel sounds, Soft and benign, Non-distended, No tenderness Musculoskeletal: No clubbing, No swelling, No tenderness Integumentary: No rashes Neurological: Normal speech, Normal tone, Sensation intact, Cranial nerves 3-12 intact, Normal affect, Abnormal gait, Abnormal strength Lymphatics: No axilla or inguinal lymphadenopathy - Studies Laboratory Data (last 24 hrs) 12/15/22 07:50: Sodium 138, Potassium 3.5, BUN 14, Creatinine 0.60, Glucose 135 H, Magnesium 2.1, Total Bilirubin 1.4 H, AST 49 H, ALT 47, Alkaline Phosphatase 87 12/15/22 07:50: WBC 8.80, Hgb 12.0, Hct 36.6, Plt Count 151 L Microbiology Data (last 24 hrs): 12/15/22 07:50 Nasopharnyx Influenza Type A Antigen Screen - Final 12/15/22 07:50 Nasopharnyx Influenza Type B Antigen Screen - Final Assessment & Plan - Problems (Diagnosis) (1) Pneumonia Current Visit: No Status: Acute Qualifiers: Laterality: unspecified laterality Lung location: unspecified part of lung (2) UTI (urinary tract infection) Current Visit: Yes Status: Acute (3) Hyperlipidemia Current Visit: No Status: Chronic Qualifiers: (4) Hypertension Current Visit: No Status: Chronic (5) H/O tracheostomy Current Visit: Yes Status: Acute (6) Cirrhosis Current Visit: No Status: Chronic Qualifiers: (7) Critical illness myopathy Current Visit: Yes Status: Acute (8) Generalized weakness Current Visit: Yes Status: Acute - Plan Plan: - Continue with IV antibiotics - Awaiting sputum and blood culture - Repeat chest x-ray - Will proceed with CT scan of the chest if symptoms worsens - Continue with nebs as needed - O2 per protocol - Continue with gentle hydration - Repeat labs including CBC and renal function in a.m. - PT - Case management - GI and DVT prophylaxis Discharge Plan: Home Plan to discharge in: 24 Hours - Advance Directives Does patient have a Living Will: Yes Does patient have a Durable POA for Healthcare: No - Code Status/Comfort Care Code Status Assessed: Yes Code Status: Full Code Critical Care: No Time Spent Managing PTS Care (In Minutes): 45
[2022-12-15] MEDS ORDERED: Levofloxacin500mg IV 500 MG/100 ML BAG IV SCH (11:00)
[2022-12-15] MEDS: METHYLPREDNISOLONE 40 MG INJ IV SCH ×2 (12:59→17:01)
[2022-12-15] MEDS: NA CHLORIDE 0.9% 1,000 ML IV SCH (12:59)
[2022-12-15] MEDS: IPRATROPIUM BROM 0.5MG/2.5ML NEB SCH ×2 (14:47→20:15)
[2022-12-15] MEDS: ALBUTEROL 2.5 MG/3 ML NEB SOL NEB SCH ×2 (14:47→20:15)
[2022-12-15 15:19] VITALS: BMI 20.1
[2022-12-15] MEDS: PIPER TAZO 3.375 GM in NA CHLORIDE 0.9% 100 ML IV SCH (16:56)
[2022-12-16] MEDS: NA CHLORIDE 0.9% 1,000 ML IV SCH ×2 (00:20→01:40)
[2022-12-16] MEDS: METHYLPREDNISOLONE 40 MG INJ IV SCH ×2 (00:35→06:07)
[2022-12-16] MEDS: PIPER TAZO 3.375 GM in NA CHLORIDE 0.9% 100 ML IV SCH ×2 (00:35→08:29)
[2022-12-16] MEDS: IPRATROPIUM BROM 0.5MG/2.5ML NEB SCH ×2 (01:56→07:50)
[2022-12-16] MEDS: ALBUTEROL 2.5 MG/3 ML NEB SOL NEB SCH ×2 (01:56→07:50)
[2022-12-16 01:57] VITALS: O2SAT 95
[2022-12-16 07:08] LABS: Albumin 2.8 g/dL (3.4-5.0); Bilirubin Total 0.9 mg/dL (0.2-1.0); Magnesium 1.8 mg/dL (1.6-2.4); Phosphorus 2.4 mg/dL (2.5-4.9); Potassium 3.7 mEq/L (3.5-5.1); Protein, Total 6.8 g/dL (6.4-8.2)
[2022-12-16 07:10] LABS: Hematocrit 32.3 % (36.0-45.0); Lymphocytes % 4.5 % (15.3-44.8); MCV 97.6 fL (80-100); MPV 7.9 fL (7.6-11.3); RBC Red Blood Cell Count 3.31 M/uL (3.86-4.86)
[2022-12-16 07:11] LABS: Absolute Lymphocytes (CBC) 0.5 K/uL (0.7-4.9)
[2022-12-16] MEDS ORDERED: POTASSIUM 25 MEQ EFFERV TAB PO ONE (07:42)
[2022-12-16] MEDS: POTASS/SODIUM PHOSPHATE 1 PKT POWD.PACK PO SCH (08:37)
[2022-12-16] MEDS ORDERED: ENOXAPARIN 40 MG/0.4 ML SQ SCH (09:00)
[2022-12-16] MEDS ORDERED: MAGNESIUM SULFATE 1 gm IVPB 1 GM/100 ML BAG IV ONE (09:00)
[2022-12-16 09:23] LABS: Blood Morphology Comment NOT SEEN (NOT SEEN); Platelet Estimate ADEQ; White Blood Cell Scan OK (OK)
--- NOTE | 2022-12-16 09:53 | P.DS ---
Admission Date: 12/15/22 (Hospitalist) Discharge Date: 12/16/22 Disposition: ROUTINE DISCHARGE Discharge Condition: GOOD Reason for Admission: Generalized weakness; pneumonia with questionable UTI Brief History of Present Illness: Patient is 57 years of age was recently discharged from an LTAC facility. With pneumonia s/p trach admitted to the hospital started complaining of some pain discomfort in her legs some weakness currently doing well denies any shortness of breath trach was removed does have a history of asthma Hospital Course: Patient did well he was here for observation chest x-ray is clear mild cardiomegaly has been DC'd count is normal procalcitonin level is negative chest clear cardiovascular stoma sounds normal evidence of swelling or edema of her lower extremity patient is able to ambulate with assistance she has home health already set up plan to discharge her home medications advised to either use Breo or Trelegy not both she has a history of asthma does see pulmonary asthma specialist in [place] prior to discharge vital signs are all stable blood pressure satisfactory oxygenation satisfactory Vital Signs/Physical Exam: Temp Pulse Resp BP Pulse Ox 98.5 F 100 H 14 122/62 95 12/16/22 07:56 12/16/22 07:56 12/16/22 07:56 12/16/22 07:56 12/16/22 07:56 Laboratory Data at Discharge: WBC 10.60 thou/uL (4.3-10.9) 12/16/22 06:35 Hgb 10.7 g/dL (12.0-15.0) L D 12/16/22 06:35 Hct 32.3 % (36.0-45.0) L 12/16/22 06:35 Plt Count 119 thou/uL (152-406) L 12/16/22 06:35 Sodium 140 mEq/L (136-145) 12/16/22 06:35 Potassium 3.7 mEq/L (3.5-5.1) 12/16/22 06:35 BUN 16 mg/dL (7-18) 12/16/22 06:35 Creatinine 0.60 mg/dL (0.55-1.02) 12/16/22 06:35 Glucose 192 mg/dL (74-106) H 12/16/22 06:35 Phosphorus 2.4 mg/dL (2.5-4.9) L 12/16/22 06:35 Magnesium 1.8 mg/dL (1.6-2.4) 12/16/22 06:35 Total Bilirubin 0.9 mg/dL (0.2-1.0) 12/16/22 06:35 AST 31 U/L (15-37) 12/16/22 06:35 ALT 35 U/L (13-56) 12/16/22 06:35 Alkaline Phosphatase 71 U/L (45-117) 12/16/22 06:35 Home Medications: Amlodipine [Norvasc*] 10 mg PO DAILY 09/14/22 Lamotrigine [Lamotrigine ER] 200 mg PO DAILY 09/14/22 Levocetirizine Dihydrochloride [Xyzal] 5 mg PO DAILY 09/14/22 Mirtazapine 45 mg PO BEDTIME 09/14/22 Oxcarbazepine [Trileptal] 300 mg PO BID 09/14/22 Simvastatin [Zocor] 20 mg PO DAILY 09/14/22 Zolpidem Tartrate [Ambien*] 10 mg PO BEDTIME 09/14/22 cloNIDine HCL [Clonidine HCl] 0.1 mg PO DAILY PRN 09/14/22 hydrOXYzine HCL [Atarax] 1 tab PO DAILY PRN 09/14/22 Losartan Potassium [Cozaar*] 50 mg PO DAILY 09/22/22 Meloxicam 15 mg PO DAILY 09/22/22 Physician Discharge Instructions: Patient to use Breo DC Trelegy OK TO DC IV AND DC HOME FOLLOW-UP WITH PRIMARY CARE PROVIDER IN 1-2 WEEKS FOLLOW-UP WITH PULMONARY IN 1-2 WEEKS RETURN TO THE ER IF symptoms worsens CALL DR. CLANCY AT [phone] IF ANY QUESTIONS REGARDING HOSPITAL STAY. PLEASE CALL THE FLOOR AT [phone] IF ANY MEDICATION OR NURSING QUESTIONS. Diet: Regular Activity: Fall precautions Followup: NONE,NONE [Primary Care Provider] -
[2022-12-16 12:12] VITALS: BP 114/55; TEMP 98.8
--- NOTE | 2022-12-20 07:52 | EKG ---
Test Date: 2022-12-15 Test Time: 08:09:30 [employer] Insurance Special Agent: JOANNA MEASUREMENT RESULTS: Intervals: Rate: 74 VA: 154 QRSD: 80 QT: 482 QTc: 535 Mcintosh: P: 78 VA: 154 QRS: 49 T: 69 INTERPRETIVE STATEMENTS: Normal sinus rhythm Possible Left atrial enlargement Cannot rule out Anterior infarct, age undetermined Prolonged QT Abnormal ECG No previous ECG available for comparison Electronically Signed On 12-20-22 07:46:45 CDT by Eulalio Russell
--- NOTE | 2022-12-20 11:32 | RAD REPORT ---
EXAM DESCRIPTION: RAD - Chest Pa And Lat (2 Views) - 12/16/2022 5:09 am CLINICAL HISTORY: evaluate ? pneumonia COMPARISON: Chest Single View dated 12/15/2022; Chest Single View dated 10/03/2022; Chest Single View dated 10/02/2022; Chest Single View dated 09/30/2022
== END 2022-12-16 12:28 | disposition home health service (06) ==
LOC: ER 07:27 → ERHOLD 10:40 → 2ND 11:25
PROVIDERS: ADMIT Hospitalist; ATTEND Internal Medicine Sleep Medicine
DX: J18.9 Pneumonia, unspecified organism (principal); N39.0 Urinary tract infection, site not specified; E78.5 Hyperlipidemia, unspecified; I10 Essential (primary) hypertension; K74.60 Unspecified cirrhosis of liver; R53.1 Weakness; G72.81 Critical illness myopathy; Z20.822 Contact with and (suspected) exposure to COVID-19; Z93.0 Tracheostomy status
CPT/HCPCS: 96361; 93005; 87070; 85025 ×2; 81001; 36415; 83735 ×2; 87205; 84100; 83605; 84484; 80053 ×2; 84145 ×2; 83880 ×2; 87804 ×2; 71045; 71046; 97116; 97161; 94640 ×4; 94760 ×4; 96374; 99285; U0003; J3475; J2543 ×3; J7613 ×4; J7644 ×4; J1650; J7040; J7030 ×2; J2920 ×4; J0696; G0378 ×3